=== PATIENT | female | born 1980 | race African-American/Black ===

== ENCOUNTER 2018-02-25 07:36 | Emergency (ER) | payer OTHER ==
--- OUTSIDE RECORDS SUMMARY | 2018-02-25 07:38 | XMS REPORT ---
:1980 Author Organization eClinicalWorks Care Team Providers Name Role Phone Marly Lemus Provider Role Unavailable Allergies No Known Allergies Problems Problem Type Condition Code Onset Dates Condition Status Problem Bipolar affective disorder, F31.9 Active remission status unspecified Problem retirement current use of insulin Z79.4 Active Problem Type 2 diabetes mellitus with E11.65 Active hyperglycemia Problem Dietary counseling Z71.3 Active Problem Diabetes E11.9 Active Problem Obesity (BMI 30.0-34.9) E66.9 Active Problem Bipolar 1 disorder F31.9 Active Problem Depression with anxiety F41.8 Active Problem Anxiety F41.9 Active Problem Depression F32.9 Active Medications Medication Code Code Instructions Start End Status Dosage System Date Date Lantus [facility] 80512088332 100 UNIT/ML Active 10 Units Subcutaneous Once daily Sertraline HCl ND 71312998808 50 MG Orally Active 1 tablet Once a day [place] [facility] 63621612162 32G X 6 MM February 12, Active as directed subcutaneous 2017 Once daily Metformin HCl ND 52400076770 1000 MG Orally Active 1 tablet Once a day with a meal Saxenda ND 90303682901 18 MG/3ML February 13Jun 13, Active as directed Subcutaneous 2017 2017 Start at 0.6 mg in week #1, then increase by 0.6 mg each week to max of 3 mg daily Lantus ND 23991204651 100 UNIT/ML February 12, Active 10 units SoloStar Subcutaneous 2018 Once daily Results No Known Results Summary Purpose [employer]ClinicalWorks Submission
--- OUTSIDE RECORDS SUMMARY | 2018-02-25 07:38 | XMS REPORT ---
:1980 Author Organization eClinicalWorks Care Team Providers Name Role Phone Marly Lemus Provider Role Unavailable Allergies No Known Allergies Problems Problem Type Condition Code Onset Dates Condition Status Problem Bipolar affective disorder, F31.9 Active remission status unspecified Problem senior care current use of insulin Z79.4 Active Problem Type 2 diabetes mellitus with E11.65 Active hyperglycemia Problem Dietary counseling Z71.3 Active Problem Diabetes E11.9 Active Problem Obesity (BMI 30.0-34.9) E66.9 Active Problem Bipolar 1 disorder F31.9 Active Problem Depression with anxiety F41.8 Active Problem Anxiety F41.9 Active Problem Depression F32.9 Active Medications Medication Code Code Instructions Start End Date Status Dosage System Date Metformin HCl [facility] 86767308250 1000 MG Orally February 13, Active 1 tablet Twice daily 2018 with a meal Results No Known Results Summary Purpose [employer] Submission
--- OUTSIDE RECORDS SUMMARY | 2018-02-25 07:38 | XMS REPORT ---
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
--- OUTSIDE RECORDS SUMMARY | 2018-02-25 07:38 | XMS REPORT ---
:1980 Author Organization eClinicalWorks Care Team Providers Name Role Phone Marly Lemus Provider Role Unavailable Allergies, Adverse Reactions, Alerts Substance Reaction Event Type N.K.D.A. 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 Z79.4 Active Problem Type 2 diabetes mellitus with E11.65 Active hyperglycemia Problem Dietary counseling Z71.3 Active Problem Diabetes E11.9 Active Problem Obesity (BMI 30.0-34.9) E66.9 Active Problem Bipolar 1 disorder F31.9 Active Problem Depression with anxiety F41.8 Active Problem Anxiety F41.9 Active Problem Depression F32.9 Active Assessment Dietary counseling Z71.3 Active Assessment intermediate current use of insulin Z79.4 Active Assessment Type 2 diabetes mellitus with E11.65 Active hyperglycemia Assessment Obesity (BMI 30.0-34.9) E66.9 Active Medications Medication Code Code Instructions Start End Status Dosage System Date Date Lantus ND 75809317004 100 UNIT/ML February 12, Active 10 units SoloStar Subcutaneous 2017 Once daily Metformin HCl ND 90313194196 1000 MG Orally Active 1 tablet Once a day with a meal Pen [place] [facility] 11582260034 32G X 6 MM February 12, Active as directed subcutaneous 2017 Once daily Sertraline HCl ND 63135543345 50 MG Orally Active 1 tablet Once a day Lantus ND 44312310587 100 UNIT/ML Active 10 Units Subcutaneous Once daily Results No Known Results Summary Purpose eClinicalWorks Submission
--- OUTSIDE RECORDS SUMMARY | 2018-02-25 07:38 | XMS REPORT ---
:1980 Author Organization eClinicalWorks Care Team Providers Name Role Phone Marly Lemus Provider Role Unavailable Allergies, Adverse Reactions, Alerts Substance Reaction Event Type N.K.D.A. 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 Active Problem Bipolar affective disorder, F31.9 Active remission status unspecified Assessment Type 2 diabetes mellitus with E11.65 Active hyperglycemia Assessment Bipolar affective disorder, F31.9 Active remission status unspecified Assessment Depression with anxiety F41.8 Active Problem Anxiety F41.9 Active Problem Depression F32.9 Active Problem Diabetes E11.9 Active Problem [facility] current use of insulin Z79.4 Active Problem Type 2 diabetes mellitus with E11.65 Active hyperglycemia Problem Bipolar 1 disorder F31.9 Active Problem Depression with anxiety F41.8 Active Medications Medication Code Code Instructions Start End Status Dosage System Date Date Metformin HCl [facility] 23677881031 1000 MG Orally Active 1 tablet Once a day with a meal Sertraline HCl [facility] 39012805789 50 MG Orally Active 1 tablet Once a day Lantus [facility] 90932711697 100 UNIT/ML Active not Subcutaneous defined Results No Known Results Summary Purpose [employer] Submission
--- OUTSIDE RECORDS SUMMARY | 2018-02-25 07:38 | XMS REPORT ---
:1980 Author Organization eClinicalWorks Care Team Providers Name Role Phone Marly Lemus Provider Role Unavailable Allergies No Known Allergies Problems Problem Type Condition Code Onset Dates Condition Status Problem Bipolar affective disorder, F31.9 Active remission status unspecified Problem Anxiety F41.9 Active Problem Depression F32.9 Active Problem Diabetes E11.9 Active Problem nursing home current use of insulin Z79.4 Active Problem Type 2 diabetes mellitus with E11.65 Active hyperglycemia Problem Bipolar 1 disorder F31.9 Active Problem Depression with anxiety F41.8 Active Medications No Known Medications Results No Known Results Summary Purpose eClinicalWorks Submission
--- NOTE | 2018-02-25 08:13 | EDPHYS ---
Physician Documentation [facility] Name: Eduin Montgomery Age: 37 yrs Sex: Female : 1980 Arrival Date: 02/25/2018 Time: 07:38 Bed 8 Private MD: Marly Lemus ED Physician Anuj Velásquez HPI: 02/25 08:00 This 37 yrs old Black Female presents to ER via Ambulatory with complaints of Anxiety. gs 08:00 The patient presents to the emergency department with anxiety, over unknown gs circumstances. Onset: The symptoms/episode began/occurred acutely, just prior to arrival. Past psychiatric history: Prior diagnosis: bipolar disorder, depression. Associated signs and symptoms: Pertinent negatives: chest pain, shortness of breath. Severity of symptoms: At their worst the symptoms were moderate in the emergency department the symptoms are unchanged. The patient has experienced similar episodes in the past, several times. out of zoloft for 1 month, see therapist. 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 - Social history:: Smoking status: Patient uses tobacco products, smokes one-half pack cigarettes per day. - Ebola Screening: : No symptoms or risks identified at this time. ROS: 08:00 All other systems are negative. gs 08:14 Psych: Negative for suicide gesture, suicidal ideation. gs Exam: 08:08 Head/Face: Normocephalic, atraumatic. Eyes: Pupils equal round and reactive to light, gs extra-ocular motions intact. Lids and lashes normal. Conjunctiva and sclera are non-icteric and not injected. Cornea within normal limits. Periorbital areas with no swelling, redness, or edema. ENT: Nares patent. No nasal discharge, no septal abnormalities noted. Tympanic membranes are normal and external auditory canals are clear. Oropharynx with no redness, swelling, or masses, exudates, or evidence of obstruction, uvula midline. Mucous membranes moist. Neck: Trachea midline, no thyromegaly or masses palpated, and no cervical lymphadenopathy. Supple, full range of motion without nuchal rigidity, or vertebral point tenderness. No Meningismus. Chest/axilla: Normal chest wall appearance and motion. Nontender with no deformity. No lesions are appreciated. Cardiovascular: Regular rate and rhythm with a normal S1 and S2. No gallops, murmurs, or rubs. Normal PMI, no JVD. No pulse deficits. Abdomen/GI: Soft, non-tender, with normal bowel sounds. No distension or tympany. No guarding or rebound. No evidence of tenderness throughout. Back: No spinal tenderness. No costovertebral tenderness. Full range of motion. Skin: Warm, dry with normal turgor. Normal color with no rashes, no lesions, and no evidence of cellulitis. MS/ Extremity: Pulses equal, no cyanosis. Neurovascular intact. Full, normal range of motion. Neuro: Awake and alert, GCS 15, oriented to person, place, time, and situation. Cranial nerves II-XII grossly intact. Motor strength 5/5 in all extremities. Sensory grossly intact. Cerebellar exam normal. Normal gait. 08:08 Constitutional: The patient appears alert, awake, anxious. 08:08 Respiratory: the patient does not display signs of respiratory distress, Respirations: tachypnea, that is mild, Breath sounds: are clear throughout, no bronchial sounds, no decreased breath sounds, no rales, rhonchi, no stridor, no wheezing. Vital Signs: 07:45 BP 106 / 58; Pulse 67; Resp 26 S; Temp 98.6(O); Pulse Ox 97% on R/A; Weight 99.79 kg jl7 (R); Height 5 ft. 8 in. (172.72 cm) (R); Pain 0/10; 08:18 BP 110 / 75; Pulse 71; Resp 24; Pulse Ox 99% ; jl7 07:45 Body Mass Index 33.45 (99.79 kg, 172.72 cm) 7 MDM: 07:56 Patient medically screened. 08:08 Differential diagnosis: depression, hyperventilation. Data reviewed: vital signs, gs nurses notes. Administered Medications: No medications were administered Disposition: 02/25/18 08:12 Discharged to Home. Impression: Hyperventilation. - Condition is Stable. - Discharge Instructions: Hyperventilation, Generalized Anxiety Disorder. - Prescriptions for Ativan 0.5 mg Oral Tablet - take 1 tablet by ORAL route every 8 hours As needed; 10 tablet. Zoloft 50 mg Oral Tablet - take 1 tablet by ORAL route once daily; 15 tablet. - Medication Reconciliation Form, Thank You Letter, Antibiotic Education, Prescription Opioid Use form. - Follow up: Private Physician; When: 2 - 3 days; Reason: Re-evaluation by your physician. Signatures: Shannon Vásquez RN RN jl7 Anuj Velásquez MD MD Corrections: (The following items were deleted from the chart) 08:29 08:12 02/25/2018 08:12 Discharged to Home. Impression: Hyperventilation. Condition is jl7 Stable. Forms are Medication Reconciliation Form, Thank You Letter, Antibiotic Education, Prescription Opioid Use. Follow up: Private Physician; When: 2 - 3 days; Reason: Re-evaluation by your physician. gs
--- NOTE | 2018-02-25 08:13 | ER ---
Nurse's Notes [facility] Name: Eduin Montgomery Age: 37 yrs Sex: Female : 1980 Arrival Date: 02/25/2018 Time: 07:38 Bed 8 Private MD: Marly Lemus Diagnosis: Hyperventilation Presentation: 02/25 07:45 Presenting complaint: Patient states: "I started feeling anxious this morning before jl7 work and by the time I got to work I couldn't get out of the car and I couldn't catch my breath.". Transition of care: patient was not received from another setting of care. Onset of symptoms was February 25, 2018. Risk Assessment: Do you want to hurt yourself or someone else? Patient reports no desire to harm self or others. Initial Sepsis Screen: Does the patient meet any 2 criteria? No. Patient's initial sepsis screen is negative. Does the patient have a suspected source of infection? No. Patient's initial sepsis screen is negative. Care prior to arrival: None. 07:45 Method Of Arrival: Ambulatory [facility] 07:45 Acuity: RUBY 4 jl7 Triage Assessment: 07:45 General: Appears in no apparent distress. uncomfortable, Behavior is cooperative, jl7 anxious. Pain: Denies pain. EENT: No signs and/or symptoms were reported regarding the EENT system. Neuro: Level of Consciousness is awake, alert, obeys commands, Oriented to person, place, time, situation. Cardiovascular: Patient's skin is warm and dry. Respiratory: Airway is patent Respiratory effort is even, unlabored, Respiratory pattern is regular, symmetrical. GI: No signs and/or symptoms were reported involving the gastrointestinal system. : No signs and/or symptoms were reported regarding the genitourinary system. Derm: Skin is dry, Skin is normal, Skin temperature is warm. Musculoskeletal: No signs and/or symptoms reported regarding the musculoskeletal system. 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 - Social history:: Smoking status: Patient uses tobacco products, smokes one-half pack cigarettes per day. - Ebola Screening: : No symptoms or risks identified at this time. Screenin:45 Abuse screen: Denies threats or abuse. Denies injuries from another. Nutritional jl7 screening: No deficits noted. Tuberculosis screening: No symptoms or risk factors identified. Fall Risk None identified. Assessment: 07:45 General: See triage assessment. jl7 08:18 Reassessment: Dr. Velásquez at bedside discussing plan of care. jl7 Vital Signs: 07:45 BP 106 / 58; Pulse 67; Resp 26 S; Temp 98.6(O); Pulse Ox 97% on R/A; Weight 99.79 kg jl7 (R); Height 5 ft. 8 in. (172.72 cm) (R); Pain 0/10; 08:18 BP 110 / 75; Pulse 71; Resp 24; Pulse Ox 99% ; jl7 07:45 Body Mass Index 33.45 (99.79 kg, 172.72 cm) jl7 ED Course: 07:38 Patient arrived in ED. rg4 07:38 Marly Lemus MD is Private Physician. rg4 07:45 Anuj Velásquez MD is Attending Physician. gs 07:45 Arm band placed on right wrist. jl7 07:45 Patient has correct armband on for positive identification. Bed in low position. Call jl light in reach. Side rails up X 1. Pulse ox on. NIBP on. 07:52 Shannon Vásquez, KORTNEY is Primary Nurse. jl7 07:56 Triage completed. jl7 08:28 No provider procedures requiring assistance completed. Patient did not have IV access jl7 during this emergency room visit. Administered Medications: No medications were administered Outcome: 08:12 Discharge ordered by . 08:28 Discharged to home ambulatory. jl7 08:28 Condition: stable 08:28 Discharge instructions given to patient, Instructed on discharge instructions, follow up and referral plans. medication usage, Demonstrated understanding of instructions, follow-up care, medications, Prescriptions given X 2. 08:29 Patient left the ED. jl7 Signatures: Alyssa Manrique4 Shannon Vásquez RN RN jl7 Anuj Velásquez MD MD
[2018-02-25 08:33] VITALS: TEMP 98.6
[2018-02-25 08:34] VITALS: BP 110/75; O2SAT 99
== END 2018-02-25 08:29 | disposition home or self-care (01) ==
LOC: ER 07:36
DX: R06.4 Hyperventilation (principal); F41.9 Anxiety disorder, unspecified; E11.9 Type 2 diabetes mellitus without complications; F17.210 Nicotine dependence, cigarettes, uncomplicated; Z79.4 Long term (current) use of insulin
CPT/HCPCS: 99283

== ENCOUNTER 2018-03-06 07:16 | Emergency (ER) | payer OTHER ==
--- OUTSIDE RECORDS SUMMARY | 2018-03-06 07:17 | XMS REPORT ---
:1980 Author Organization eClinicalWorks Care Team Providers Name Role Phone Marly Lemus Provider Role Unavailable Allergies, Adverse Reactions, Alerts Substance Reaction Event Type N.K.D.A. 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 Problem Bipolar affective disorder, F31.9 Active remission status unspecified Assessment Type 2 diabetes mellitus with E11.65 Active hyperglycemia Assessment Bipolar affective disorder, F31.9 Active remission status unspecified Assessment Depression with anxiety F41.8 Active Problem Anxiety F41.9 Active Problem Depression F32.9 Active Problem Diabetes E11.9 Active Problem [facility] current use of insulin Z79.4 Active Problem Type 2 diabetes mellitus with E11.65 Active hyperglycemia Problem Bipolar 1 disorder F31.9 Active Problem Depression with anxiety F41.8 Active Medications Medication Code Code Instructions Start End Status Dosage System Date Date Metformin HCl [facility] 74796008778 1000 MG Orally Active 1 tablet Once a day with a meal Sertraline HCl [facility] 21977758654 50 MG Orally Active 1 tablet Once a day Lantus [facility] 20479547001 100 UNIT/ML Active not Subcutaneous defined Results No Known Results Summary Purpose [employer] Submission
--- OUTSIDE RECORDS SUMMARY | 2018-03-06 07:17 | XMS REPORT ---
:1980 Author Organization eClinicalWorks Care Team Providers Name Role Phone Marly Lemus Provider Role Unavailable Allergies No Known Allergies Problems Problem Type Condition Code Onset Dates Condition Status Problem Bipolar affective disorder, F31.9 Active remission status unspecified Problem correction current use of insulin Z79.4 Active Problem [...] Date Status Dosage System Date Metformin HCl [facility] 89615448896 1000 MG Orally February 13, Active 1 tablet Twice daily 2018 with a meal Results No Known Results Summary Purpose [employer] Submission
--- OUTSIDE RECORDS SUMMARY | 2018-03-06 07:17 | XMS REPORT ---
:1980 Author Organization eClinicalWorks Care Team Providers Name Role Phone Marly Lemus Provider Role Unavailable Allergies, Adverse Reactions, Alerts Substance Reaction Event Type N.K.D.A. 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 Active Problem Type 2 diabetes mellitus with E11.65 Active hyperglycemia Problem Dietary counseling Z71.3 Active Problem Diabetes E11.9 Active Problem Obesity (BMI 30.0-34.9) E66.9 Active Problem Bipolar 1 disorder F31.9 Active Problem Depression with anxiety F41.8 Active Problem Anxiety F41.9 Active Problem Depression F32.9 Active Assessment Dietary counseling Z71.3 Active Assessment [facility] current use of insulin Z79.4 Active Assessment Type 2 diabetes mellitus with E11.65 Active hyperglycemia Assessment Obesity (BMI 30.0-34.9) E66.9 Active Medications Medication Code Code Instructions Start End Status Dosage System Date Date Lantus ND 39182096951 100 UNIT/ML February 12, Active 10 units SoloStar Subcutaneous 2017 Once daily Metformin HCl ND 89920904712 1000 MG Orally Active 1 tablet Once a day with a meal [place] [facility] 20011531411 32G X 6 MM February 12, Active as directed subcutaneous 2017 Once daily Sertraline HCl ND 75285628535 50 MG Orally Active 1 tablet Once a day Lantus ND 86351201652 100 UNIT/ML Active 10 Units Subcutaneous Once daily Results No Known Results Summary Purpose eClinicalWorks Submission
--- OUTSIDE RECORDS SUMMARY | 2018-03-06 07:17 | XMS REPORT ---
:1980 Author Organization eClinicalWorks Care Team Providers Name Role Phone Marly Lemus Provider Role Unavailable Allergies No Known Allergies Problems Problem Type Condition Code Onset Dates Condition Status Problem Bipolar affective disorder, F31.9 Active remission status unspecified Problem Anxiety F41.9 Active Problem Depression F32.9 Active Problem Diabetes E11.9 Active Problem care home current use of insulin Z79.4 Active Problem Type 2 diabetes mellitus with E11.65 Active hyperglycemia Problem Bipolar 1 disorder F31.9 Active Problem Depression with anxiety F41.8 Active Medications No Known Medications Results No Known Results Summary Purpose [employer]ClinicalWorks Submission
--- OUTSIDE RECORDS SUMMARY | 2018-03-06 07:17 | XMS REPORT ---
:1980 Author Organization eClinicalWorks Care Team Providers Name Role Phone Marly Lemus Provider Role Unavailable Allergies No Known Allergies Problems Problem Type Condition Code Onset Dates Condition Status Problem Bipolar affective disorder, F31.9 Active remission status unspecified Problem care home current use of insulin [...] End Status Dosage System Date Date Lantus [facility] 85700650382 100 UNIT/ML Active 10 Units Subcutaneous Once daily Sertraline HCl ND 09985486198 50 MG Orally Active 1 tablet Once a day [place] [facility] 29475449203 32G X 6 MM February 12, Active as directed subcutaneous 2017 Once daily Metformin HCl ND 93627208673 1000 MG Orally Active 1 tablet Once a day with a meal Saxenda ND 75084151542 18 MG/3ML February 13Jun 13, Active as directed Subcutaneous 2017 2017 Start at 0.6 mg in week #1, then increase by 0.6 mg each week to max of 3 mg daily Lantus ND 69409484156 100 UNIT/ML February 12, Active 10 units SoloStar Subcutaneous 2018 Once daily Results No Known Results Summary Purpose eClinicalWorks Submission
--- OUTSIDE RECORDS SUMMARY | 2018-03-06 07:18 | XMS REPORT ---
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
--- NOTE | 2018-03-06 08:28 | ER ---
Nurse's Notes [facility] Name: Eduin Montgomery Age: 37 yrs Sex: Female : 1980 Arrival Date: 03/06/2018 Time: 07:18 Bed 13 Private MD: Marly Lemus Diagnosis: Anxiety disorder, unspecified Presentation: 03/06 07:19 Presenting complaint: Patient states: i have anxiety problem and this time it started hj 20 mins ago at work; denies chest pain; reports dizziness and headache;. Transition of care: patient was not received from another setting of care. Onset of symptoms was March 06, 2018. Risk Assessment: Do you want to hurt yourself or someone else? Patient reports no desire to harm self or others. Initial Sepsis Screen: Does the patient meet any 2 criteria? No. Patient's initial sepsis screen is negative. Does the patient have a suspected source of infection? No. Patient's initial sepsis screen is negative. Care prior to arrival: None. 07:19 Method Of Arrival: Ambulatory 07:19 Acuity: RUBY 4 hj Triage Assessment: 07:21 General: Appears in no apparent distress. uncomfortable, Behavior is cooperative, hj appropriate for age, anxious. Pain: Denies pain. 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 - Social history:: Smoking status: Patient/guardian denies using tobacco, Patient/guardian denies using alcohol. - Ebola Screening: : Patient negative for fever greater than or equal to 101.5 degrees Fahrenheit, and additional compatible Ebola Virus Disease symptoms Patient denies exposure to infectious person Patient denies travel to an Ebola-affected area in the 21 days before illness onset. Screenin:21 Abuse screen: Denies threats or abuse. Denies injuries from another. Nutritional hj screening: No deficits noted. Tuberculosis screening: No symptoms or risk factors identified. Fall Risk None identified. Assessment: 07:26 Reassessment: pt in restroom at this time. tw2 07:36 General: Appears well groomed, Behavior is anxious. Pain: Denies pain. Neuro: Level of tw2 Consciousness is awake, alert, obeys commands, Oriented to person, place, time, situation. Cardiovascular: Reports shortness of breath, Heart tones S1 S2 Capillary refill < 3 seconds Patient's skin is warm and dry. Respiratory: Airway is patent Respiratory effort is even, unlabored, Respiratory pattern is regular, symmetrical, tachypnea Breath sounds are clear bilaterally. GI: No signs and/or symptoms were reported involving the gastrointestinal system. Abdomen is round non-distended, Bowel sounds present X 4 quads. : No signs and/or symptoms were reported regarding the genitourinary system. EENT: No signs and/or symptoms were reported regarding the EENT system. Derm: Skin is intact, is healthy with good turgor, Skin temperature is warm. Musculoskeletal: Range of motion: intact in all extremities. 08:23 Reassessment: No changes from previously documented assessment. Patient and/or family tw2 updated on plan of care and expected duration. Pain level reassessed. Patient is alert, oriented x 3, equal unlabored respirations, skin warm/dry/pink. pt refused breakfast tray at this time and refused blanket, states "dont feel much better". Vital Signs: 07:22 BP 100 / 89; Pulse 83; Resp 18; Temp 97.9; Pulse Ox 100% on R/A; Weight 99.79 kg; hj Height 5 ft. 9 in. (175.26 cm); Pain 0/10; 08:23 BP 103 / 65; Pulse 53; Resp 20; Pulse Ox 100% on R/A; tw2 07:22 Body Mass Index 32.49 (99.79 kg, 175.26 cm) ED Course: 07:18 Patient arrived in ED. rg4 07:19 Marly Lemus MD is Private Physician. rg4 07:20 Triage completed. 07:21 Arm band placed on right wrist. hj 07:22 Patient has correct armband on for positive identification. Bed in low position. Call light in reach. Side rails up X 1. 07:24 Kristen Cortez, RN is Primary Nurse. tw2 07:29 [facility]C [facility] snw 07:29 Anuj Velásquez MD is Attending Physician. snw 08:26 Marly Lemus MD is Referral Physician. snw 08:43 No provider procedures requiring assistance completed. Patient did not have IV access tw2 during this emergency room visit. Administered Medications: No medications were administered Outcome: 08:28 Discharge ordered by . snw 08:43 Discharged to home ambulatory. tw2 08:43 Condition: stable 08:43 Discharge instructions given to patient, Instructed on discharge instructions, follow up and referral plans. Demonstrated understanding of instructions, follow-up care. 08:44 Patient left the ED. tw2 Signatures: Brittany Edwards FNP-C INSPECTOR FIREARMS-Csnw Jabari Cunha RN RN Kristen Cortez RN RN tw2 Alyssa Manrique rg4 Corrections: (The following items were deleted from the chart) 07:25 07:19 Presenting complaint: Patient states: i have anxiety problem and this time it hj started 20 mins ago at work; hj 07:25 07:22 Pulse 83bpm; Resp 18bpm; Pulse Ox 100% RA; Temp 97.9F; 99.79 kg; Height 5 ft. 9 hj in.; BMI: 32.4; Pain 0/10; hj 07:25 07:22 Pulse 83bpm; Resp 18bpm; Pulse Ox 100% RA; Temp 97.9F; 99.79 kg; Height 5 ft. 9 hj in.; BMI: 32.4; Pain 0/10; hj
--- NOTE | 2018-03-06 08:29 | EDPHYS ---
Physician Documentation [facility] Name: Eduin Montgomery Age: 37 yrs Sex: Female : 1980 Arrival Date: 03/06/2018 Time: 07:18 Bed 13 Private MD: Marly Lemus ED Physician Anuj Velásquez HPI: 03/06 08:10 This 37 yrs old Black Female presents to ER via Ambulatory with complaints of Anxiety. snw 08:10 The patient presents to the emergency department with anxiety, over unknown snw circumstances. Past psychiatric history: Prior diagnosis: anxiety, bipolar, Psychiatric medications include: Zoloft, Primary psychiatric physician: the patient's psychiatric physician is not known. Associated signs and symptoms: Pertinent positives; shortness of breath, hyperventilation. Severity of symptoms: At their worst the symptoms were moderate. The patient has experienced similar episodes in the past, multiple times. The patient has not recently seen a physician. 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 - Social history:: Smoking status: Patient/guardian denies using tobacco, Patient/guardian denies using alcohol. - Ebola Screening: : Patient negative for fever greater than or equal to 101.5 degrees Fahrenheit, and additional compatible Ebola Virus Disease symptoms Patient denies exposure to infectious person Patient denies travel to an Ebola-affected area in the 21 days before illness onset. ROS: 08:02 Constitutional: Negative for fever, chills, and weight loss, Eyes: Negative for injury, snw pain, redness, and discharge, ENT: Negative for injury, pain, and discharge, Neck: Negative for injury, pain, and swelling, Cardiovascular: Negative for chest pain, palpitations, and edema, Respiratory: Negative for shortness of breath, cough, wheezing, and pleuritic chest pain, Abdomen/GI: Negative for abdominal pain, nausea, vomiting, diarrhea, and constipation, Back: Negative for injury and pain, : Negative for injury, bleeding, discharge, and swelling, MS/Extremity: Negative for injury and deformity, Skin: Negative for injury, rash, and discoloration, Neuro: Negative for headache, weakness, numbness, tingling, and seizure. 08:02 Psych: Positive for anxiety, panic. Exam: 07:33 Head/Face: Normocephalic, atraumatic. Eyes: Pupils equal round and reactive to light, snw extra-ocular motions intact. Lids and lashes normal. Conjunctiva and sclera are non-icteric and not injected. Cornea within normal limits. Periorbital areas with no swelling, redness, or edema. ENT: Nares patent. No nasal discharge, no septal abnormalities noted. Tympanic membranes are normal and external auditory canals are clear. Oropharynx with no redness, swelling, or masses, exudates, or evidence of obstruction, uvula midline. Mucous membranes moist. Neck: Trachea midline, no thyromegaly or masses palpated, and no cervical lymphadenopathy. Supple, full range of motion without nuchal rigidity, or vertebral point tenderness. No Meningismus. Chest/axilla: Normal chest wall appearance and motion. Nontender with no deformity. No lesions are appreciated. Cardiovascular: Regular rate and rhythm with a normal S1 and S2. No gallops, murmurs, or rubs. Normal PMI, no JVD. No pulse deficits. Abdomen/GI: Soft, non-tender, with normal bowel sounds. No distension or tympany. No guarding or rebound. No evidence of tenderness throughout. Back: No spinal tenderness. No costovertebral tenderness. Full range of motion. Skin: Warm, dry with normal turgor. Normal color with no rashes, no lesions, and no evidence of cellulitis. MS/ Extremity: Pulses equal, no cyanosis. Neurovascular intact. Full, normal range of motion. Neuro: Awake and alert, GCS 15, oriented to person, place, time, and situation. Cranial nerves II-XII grossly intact. Motor strength 5/5 in all extremities. Sensory grossly intact. Cerebellar exam normal. Normal gait. Psych: Awake, alert, with orientation to person, place and time. Behavior, mood, and affect are within normal limits. 07:33 Constitutional: The patient appears alert, awake, anxious. 07:33 Respiratory: the patient does not display signs of respiratory distress, Respirations: shallow respirations, tachypnea, Breath sounds: are clear throughout, hyperventilation. Vital Signs: 07:22 BP 100 / 89; Pulse 83; Resp 18; Temp 97.9; Pulse Ox 100% on R/A; Weight 99.79 kg; hj Height 5 ft. 9 in. (175.26 cm); Pain 0/10; 08:23 BP 103 / 65; Pulse 53; Resp 20; Pulse Ox 100% on R/A; tw2 07:22 Body Mass Index 32.49 (99.79 kg, 175.26 cm) hj MDM: 07:29 Patient medically screened. snw 07:33 Data reviewed: vital signs, nurses notes. Data interpreted: Pulse oximetry: on room air snw is 100 %. Interpretation: normal. Counseling: I had a detailed discussion with the patient and/or guardian regarding: the historical points, exam findings, and any diagnostic results supporting the discharge/admit diagnosis, the need for outpatient follow up, for definitive care. Special discussion: Based on the history and exam findings, there is no indication for further emergent testing or inpatient evaluation. I discussed with the patient/guardian the need to see the psychiatrist for further evaluation of the symptoms. 08:17 Response to treatment: the patient's symptoms have resolved after treatment, pt snw sleeping in no distress. 03/06 07:55 Order name: Urine Dipstick--Ancillary (enter results) bd 03/06 07:55 Order name: Urine --Ancillary (enter results) bd 03/06 07:37 Order name: Misc. Order: lights low, noise reduced, pt attempting to redirect her snw panic, call light at bedside; Complete Time: 07:37 03/06 07:57 Order name: Diet Regular; Complete Time: 07:58 bd Administered Medications: No medications were administered Disposition: 03/06/18 08:28 Discharged to Home. Impression: Anxiety disorder, unspecified. - Condition is Stable. - Discharge Instructions: Panic Attacks, Generalized Anxiety Disorder. - Medication Reconciliation Form, Thank You Letter, Antibiotic Education, Prescription Opioid Use, Work release form form. - Follow up: Marly Lemus MD; When: 2 - 3 days; Reason: Recheck today's complaints, Continuance of care, Re-evaluation by your physician. Follow up: Emergency Department; When: As needed; Reason: Worsening of condition. Addendum: 03/08/2018 06:17 Co-signature as Attending Physician, Anuj Velásquez MD. g s Signatures: Dispatcher [employer] EDMS Brittany Edwards, REAL ESTATE FIRM MANAGER-C REAL ESTATE FIRM MANAGER-Csnw Jabari Cunha, RN RN Kristen Cortez RN RN tw2 Anuj Velásquez MD MD Corrections: (The following items were deleted from the chart) 03/06 08:44 08:28 03/06/2018 08:28 Discharged to Home. Impression: Anxiety disorder, unspecified. tw2 Condition is Stable. Forms are Work release form, Medication Reconciliation Form, Thank You Letter, Antibiotic Education, Prescription Opioid Use. Follow up: Marly Lemus; When: 2 - 3 days; Reason: Recheck today's complaints, Continuance of care, Re-evaluation by your physician. Follow up: Emergency Department; When: As needed; Reason: Worsening of condition. snw
[2018-03-06 08:51] VITALS: TEMP 97.9; O2SAT 100
[2018-03-06 08:53] VITALS: BP 103/65
[2018-03-06 10:39] LABS: Urine Blood NEGATIVE (NEG); Urine Glucose NEGATIVE (NEG); Urine Protein 1+ (NEG)
== END 2018-03-06 08:44 | disposition home or self-care (01) ==
LOC: ER 07:16
DX: F41.9 Anxiety disorder, unspecified (principal); F32.9 Major depressive disorder, single episode, unspecified; F31.9 Bipolar disorder, unspecified; E11.9 Type 2 diabetes mellitus without complications; Z79.4 Long term (current) use of insulin
CPT/HCPCS: 81003; 81025; 99281

== ENCOUNTER 2019-08-18 06:06 | Emergency (ER) | payer OTHER ==
--- OUTSIDE RECORDS SUMMARY | 2019-08-18 06:08 | XMS REPORT ---
:1980 [facility] Address [address] [place] [address] Dr. Herron [address] [place] [id number] Care Team Providers Name Role Phone Unavailable Unavailable Unavailable Problems This patient has no known problems. Allergies, Adverse Reactions, Alerts This patient has no known allergies or adverse reactions. Medications This patient has no known medications.
--- OUTSIDE RECORDS SUMMARY | 2019-08-18 06:08 | XMS REPORT ---
:1980 Author Organization [employer] Care Team Providers Name Role Phone Marly Lemus Provider Role Unavailable Allergies No Known Allergies Problems Problem Type Condition Code Onset Dates Condition Status Problem Dietary counseling Z71.3 Active Problem Uncontrolled type 2 diabetes E11.65 Active mellitus with hyperglycemia Problem Obesity (BMI 30.0-34.9) E66.9 Active Problem History of depression Z86.59 Active Problem Influenza vaccination administered Z23 Active at current visit Problem Weight loss R63.4 Active Problem Unspecified lump in the right N63.10 Active breast, unspecified quadrant Problem Unspecified lump in the left breast, N63.20 Active unspecified quadrant Problem Dysphagia, unspecified type R13.10 Active Problem History of anxiety Z86.59 Active Problem Type 2 diabetes mellitus with E11.65 Active hyperglycemia Problem halfway current use of insulin Z79.4 Active Problem Bipolar affective disorder, F31.9 Active remission status unspecified Problem Depression F32.9 Active Problem Depression with anxiety F41.8 Active Problem Anxiety F41.9 Active Problem Bipolar 1 disorder F31.9 Active Problem Diabetes E11.9 Active Medications No Known Medications Results No Known Results Summary Purpose [employer] Submission
--- OUTSIDE RECORDS SUMMARY | 2019-08-18 06:08 | XMS REPORT ---
:1980 Author Organization [employer] Care Team Providers Name Role Phone Marly Lemus Provider Role Unavailable Allergies, Adverse Reactions, Alerts Substance Reaction Event Type N.K.D.A. Info Not Available Non Drug Allergy Problems Problem Type Condition Code Onset Dates Condition Status Assessment History of depression Z86.59 Active Problem Anxiety F41.9 Active Assessment Unspecified lump in the right N63.10 Active breast, unspecified quadrant Problem Diabetes E11.9 Active Assessment Unspecified lump in the left breast, N63.20 Active unspecified quadrant Problem Dietary counseling Z71.3 Active Problem Uncontrolled type 2 diabetes E11.65 Active mellitus with hyperglycemia Problem Obesity (BMI 30.0-34.9) E66.9 Active Problem History of depression Z86.59 Active Problem Influenza vaccination administered Z23 Active at current visit Assessment Influenza vaccination administered Z23 Active at current visit Assessment Dysphagia, unspecified type R13.10 Active Problem Weight loss R63.4 Active Assessment Weight loss R63.4 Active Problem Unspecified lump in the right N63.10 Active breast, unspecified quadrant Problem Unspecified lump in the left breast, N63.20 Active unspecified quadrant Problem Dysphagia, unspecified type R13.10 Active Problem History of anxiety Z86.59 Active Problem Type 2 diabetes mellitus with E11.65 Active hyperglycemia Problem half-way current use of insulin Z79.4 Active Assessment Uncontrolled type 2 diabetes E11.65 Active mellitus with hyperglycemia Problem Bipolar affective disorder, F31.9 Active remission status unspecified Problem Depression F32.9 Active Problem Depression with anxiety F41.8 Active Problem Bipolar 1 disorder F31.9 Active Medications Medication Code Code Instructions Start End Status Dosage System Date Date Pen [place] [facility] [id number] 32G X 6 MM February 12, Active as directed subcutaneous 2017 Once daily Pen [place] [id number] 32G X 5 MM Jun 05, Active as directed subcutaneous as 2018 directed for use with Lantus Solostar Pen Sertraline HCl [facility] [id number] 50 MG Orally Active 1 tablet Once a day (to be taken with Zoloft 25 mg) Lantus [facility] [id number] 100 UNIT/ML February 12, Active 10 units SoloStar Subcutaneous 2017 Once daily Metformin HCl [facility] [id number] 1000 MG Orally February 13, Active 1 tablet Twice daily 2017 with a meal Sertraline HCl [facility] 85092027099 25 MG Orally Active 1 tablet Once daily (to be taken with Zoloft 50 mg) Lantus [facility] [id number] 100 UNIT/ML Active 10 Units Subcutaneous Once daily Results Name Result Date Reference Range Unit Abnormality Flag HEMOGLOBIN A1C ----A1C 13.9% [id number] Immunizations Vaccine Administration Date Flucelvax - single dose syringe Jun 05, 2019 Summary Purpose [employer] Submission
[2019-08-18 06:55] LABS: Absolute Lymphocytes (CBC) 2.1 K/uL (0.7-4.9); Basophils % 0.6 % (0-1.3); Hematocrit 35.7 % (36.0-45.0); Lymphocytes % 31.5 % (15.3-44.8); MPV 10.3 fL (7.6-11.3); RBC Red Blood Cell Count 4.17 M/uL (3.86-4.86)
[2019-08-18 06:59] LABS: Protime INR 0.97
[2019-08-18 07:07] LABS: BUN Blood Urea Nitrogen 12 mg/dL (7-18); Bicarbonate 28 mmol/L (21-32); Glucose Level 243 mg/dL (74-106); Potassium 3.3 mmol/L (3.5-5.1); Sodium Level 142 mmol/L (136-145)
[2019-08-18 07:08] LABS: Barbiturates NEGATIVE (NEGATIVE); Benzodiazepines NEGATIVE (NEGATIVE); Cocaine NEGATIVE (NEGATIVE); METHAMPHETAM NEGATIVE (NEGATIVE); Methadone NEGATIVE (NEGATIVE); Opiates NEGATIVE (NEGATIVE); Phencyclidine NEGATIVE (NEGATIVE); THC Cannibis NEGATIVE (NEGATIVE)
--- NOTE | 2019-08-18 07:15 | RAD REPORT ---
EXAM DESCRIPTION: CT - Head Brain Wo Cont - 08/18/2019 6:56 am CLINICAL HISTORY: Right hand numbness COMPARISON: 2012 TECHNIQUE: Computed axial tomography of the head was obtained. IV contrast was not requested. All CT scans are performed using dose optimization technique as appropriate and may include automated exposure control or mA/KV adjustment according to patient size. FINDINGS: An intracranial bleed is not seen . The ventricles are normal in caliber. No extra-axial fluid collection is noted. Empty sella turcica. Minimal cerebellar tonsillar ectopia Fluid within the sinuses/ mastoids is not seen. IMPRESSION: No acute intracranial abnormality is seen. If patient's symptoms persist MRI of the bra in would be recommended.
[2019-08-18 07:34] LABS: Urine Blood NEGATIVE (NEG); Urine Glucose 2+ (NEG); Urine Protein 1+ (NEG)
--- NOTE | 2019-08-18 08:06 | ER ---
Nurse's Notes [facility] Name: Eduin Montgomery Age: 38 yrs Sex: Female : 1980 Arrival Date: 08/18/2019 Time: 06:07 Bed 5 Private MD: Diagnosis: Carpal tunnel syndrome Presentation: 08/18 06:20 Presenting complaint: Patient states: I woke up yesterday around 0800H starts to feel rr5 numb on my right arm. the numbness on my arm went away but the feeling of my numbness/tingling sensation on my right hand still. 06:20 Transition of care: patient was not received from another setting of care. Onset of rr5 symptoms was August 17, 2019 at 08:00. Risk Assessment: Do you want to hurt yourself or someone else? Patient reports no desire to harm self or others. Initial Sepsis Screen: Does the patient meet any 2 criteria? No. Patient's initial sepsis screen is negative. Does the patient have a suspected source of infection? No. Patient's initial sepsis screen is negative. Care prior to arrival: None. 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 - Social history:: Smoking status: Patient uses tobacco products, 3 sticks per day. - Ebola Screening: : Patient negative for fever greater than or equal to 101.5 degrees Fahrenheit, and additional compatible Ebola Virus Disease symptoms Patient denies exposure to infectious person Patient denies travel to an Ebola-affected area in the 21 days before illness onset. Screenin:27 Abuse screen: Denies threats or abuse. Denies injuries from another. Nutritional rr5 screening: No deficits noted. Tuberculosis screening: No symptoms or risk factors identified. Fall Risk IV access (20 points). Total Zhong Fall Scale indicates No Risk (0-24 pts). 06:27 VAN Screening: Arm Drift: Patient shows no arm weakness. Patient is VAN negative. rr5 07:04 Patient has been NPO before screening. The patient is alert, able to follow commands. rr5 The patient does not exhibit slurred or garbled speech The patient is not exhibiting difficulty speaking. The patient does not exhibit difficulty understanding words. The patient is able to swallow own secretions with no drooling or need for suction. Patient tolerated one teaspoon of water. No drooling, immediate coughing, gurgling, or clearing of the throat was noted. The patient tolerated 90mL of water. No drooling, immediate coughing, gurgling, or clearing of the throat was noted. The patient passed the bedside swallow screening. Oral medications may be given as ordered. Contact Physician for further diet orders. Provider notified of bedside swallow screening results: Carlos Ruffin FOOD OR BAGGAGE HANDLING RAMPMAN. Assessment: 06:26 General: Appears in no apparent distress. comfortable, Behavior is calm, cooperative, rr5 appropriate for age. 06:26 Pain: Denies pain. Neuro: Level of Consciousness is awake, alert, obeys commands, rr5 Oriented to person, place, time, situation, Teacher are weak on right Moves all extremities. Full function Gait is steady, Speech is normal, Facial symmetry appears normal, Reports numbness in right hand. Cardiovascular: Capillary refill < 3 seconds Patient's skin is warm and dry. Respiratory: Airway is patent. GI: No signs and/or symptoms were reported involving the gastrointestinal system. : No signs and/or symptoms were reported regarding the genitourinary system. EENT: No signs and/or symptoms were reported regarding the EENT system. Derm: Skin is intact, is healthy with good turgor, Skin temperature is warm. Musculoskeletal: Circulation, motion, and sensation intact. Capillary refill < 3 seconds. 07:00 General: Appears in no apparent distress. comfortable, Behavior is calm, cooperative. rb1 Pain: Denies pain. Neuro: Level of Consciousness is awake, alert, obeys commands, Oriented to person, place, time, situation, Teacher are weak on right Moves all extremities. Full function Speech is normal, Facial symmetry appears normal, Reports numbness in right hand Denies blurred vision dizziness. Cardiovascular: Capillary refill < 3 seconds is brisk in bilateral fingers Pulses are palpable in right radial artery. Respiratory: Airway is patent Respiratory effort is even, unlabored, Respiratory pattern is regular, symmetrical. GI: No signs and/or symptoms were reported involving the gastrointestinal system. : No signs and/or symptoms were reported regarding the genitourinary system. Derm: Skin is dry, Skin is normal, Skin temperature is warm. Musculoskeletal: Range of motion: intact in all extremities. 08:00 Reassessment: Patient appears in no apparent distress at this time. Patient and/or rb1 family updated on plan of care and expected duration. Pain level reassessed. Patient is alert, oriented x 3, equal unlabored respirations, skin warm/dry/pink. Patient denies pain at this time. Vital Signs: 06:25 BP 102 / 72; Pulse 92; Resp 17; Temp 98.4; Pulse Ox 100% ; Weight 83.91 kg; Height 5 rr5 ft. 9 in. (175.26 cm); Pain 0/10; 07:44 BP 96 / 58; Pulse 64; Resp 17; Pulse Ox 100% on R/A; tw2 06:25 Body Mass Index 27.32 (83.91 kg, 175.26 cm) rr5 Edinburgh Coma Score: 06:25 Eye Response: spontaneous(4). Verbal Response: oriented(5). Motor Response: obeys rr5 commands(6). Total: 15. ED Course: 06:07 Patient arrived in ED. ds1 06:08 Carmelo Faust RN is Primary Nurse. rr5 06:13 Carlos Ruffin NP is PHCP. pm1 06:13 Mohinder Cortez MD is Attending Physician. pm1 06:24 Triage completed. rr5 06:27 Arm band placed on. rr5 06:35 EKG done, by ED staff, reviewed by Carlos Ruffin NP. rr5 06:40 Inserted saline lock: 20 gauge in right antecubital area, using aseptic technique. rr5 Blood collected. 06:45 Patient has correct armband on for positive identification. Placed in gown. Bed in low rr5 position. Call light in reach. security monitor on. Pulse ox on. NIBP on. 06:56 CT Head Brain wo Cont In Process Unspecified. EDMS 07:02 Chest Single View XRAY In Process Unspecified. EDMS 08:06 Primary Nurse role handed off by Carmelo Faust RN rb1 08:06 Olena Castro, RN is Primary Nurse. rb1 08:21 No provider procedures requiring assistance completed. IV discontinued, intact, rb1 bleeding controlled, No redness/swelling at site. Pressure dressing applied. Administered Medications: No medications were administered Outcome: 08:05 Discharge ordered by MD. pm1 08:21 Patient left the ED. rb1 08:21 Discharged to home ambulatory. rb1 08:21 Condition: stable 08:21 Discharge instructions given to patient, Instructed on discharge instructions, follow up and referral plans. Demonstrated understanding of instructions, follow-up care, splint care, Prescriptions given X none Signatures: Dispatcher [employer] [facility] Stacy Moody ds1 Olena Castro, RN RN rb1 Carlos Rfufin NP FOOD OR BAGGAGE HANDLING RAMPMAN pm1 Kristen Cortez RN RN tw2 Carmelo Faust, RN RN rr5 Corrections: (The following items were deleted from the chart) 06:55 06:45 Patient has been NPO before screening. The patient is alert, able to follow rr5 commands. The patient does not exhibit slurred or garbled speech The patient is not exhibiting difficulty speaking. The patient does not exhibit difficulty understanding words. The patient is able to swallow own secretions with no drooling or need for suction. Patient tolerated one teaspoon of water. No drooling, immediate coughing, gurgling, or clearing of the throat was noted. The patient tolerated 90mL of water. No drooling, immediate coughing, gurgling, or clearing of the throat was noted. The patient passed the bedside swallow screening. Oral medications may be given as ordered. Contact Physician for further diet orders. Provider notified of bedside swallow screening results: Carlos Ruffin FOOD OR BAGGAGE HANDLING RAMPMAN rr5
--- NOTE | 2019-08-18 08:07 | EDPHYS ---
Physician Documentation [facility] Name: Eduin Montgomery Age: 38 yrs Sex: Female : 1980 Arrival Date: 08/18/2019 Time: 06:07 Bed 5 Private MD: ED Physician Mohinder Cortez HPI: 08/18 07:05 This 38 yrs old Black Female presents to ER via Ambulatory with complaints of Numbness pm1 Of Hand - R. 07:05 The patient or guardian reports numbness. The complaints affect the right hand. pm1 Context: The problem was sustained at home, resulted from an unknown cause. Onset: The symptoms/episode began/occurred yesterday, at 08:00. Modifying factors: The symptoms are alleviated by nothing, the symptoms are aggravated by nothing. Associated signs and symptoms: Pertinent negatives: cyanosis distally, decreased sensation distally, fever, nausea, vomiting, headache, weakness. Severity of symptoms: in the emergency department the symptoms have improved. The patient has not experienced similar symptoms in the past. The patient has not recently seen a physician. Patient with right hand numbness that radiated up her right forearm yesterday morning when she woke up. Right forearm numbness has resolved, but right hand numbness has continued. No weakness. No other symptoms. No pain. 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 - Social history:: Smoking status: Patient uses tobacco products, 3 sticks per day. - Ebola Screening: : Patient negative for fever greater than or equal to 101.5 degrees Fahrenheit, and additional compatible Ebola Virus Disease symptoms Patient denies exposure to infectious person Patient denies travel to an Ebola-affected area in the 21 days before illness onset. ROS: 07:05 Constitutional: Negative for fever, chills, and weight loss, Neck: Negative for injury, pm1 pain, and swelling, Cardiovascular: Negative for chest pain, palpitations, and edema, Respiratory: Negative for shortness of breath, cough, wheezing, and pleuritic chest pain, Abdomen/GI: Negative for abdominal pain, nausea, vomiting, diarrhea, and constipation, Back: Negative for injury and pain, MS/Extremity: Negative for injury and deformity, Skin: Negative for injury, rash, and discoloration. 07:05 Neuro: Positive for numbness, of the right hand. Exam: 07:05 Constitutional: This is a well developed, well nourished patient who is awake, alert, pm1 and in no acute distress. Head/Face: Normocephalic, atraumatic. Neck: Trachea midline, no thyromegaly or masses palpated, and no cervical lymphadenopathy. Supple, full range of motion without nuchal rigidity, or vertebral point tenderness. No Meningismus. Chest/axilla: Normal chest wall appearance and motion. Nontender with no deformity. No lesions are appreciated. Cardiovascular: Regular rate and rhythm with a normal S1 and S2. No gallops, murmurs, or rubs. No pulse deficits. Respiratory: Lungs have equal breath sounds bilaterally, clear to auscultation and percussion. No rales, rhonchi or wheezes noted. No increased work of breathing, no retractions or nasal flaring. Abdomen/GI: Soft, non-tender, with normal bowel sounds. No distension or tympany. No guarding or rebound. No evidence of tenderness throughout. Back: No spinal tenderness. No costovertebral tenderness. Full range of motion. Skin: Warm, dry with normal turgor. Normal color with no rashes, no lesions, and no evidence of cellulitis. MS/ Extremity: Pulses equal, no cyanosis. Neurovascular intact. Full, normal range of motion. 07:05 Neuro: Orientation: is normal, Mentation: is normal, Cranial nerves: grossly normal, Motor: is normal, moves all fours, Sensation: is normal, no obvious gross deficits, Gait: is steady, at a normal pace, without difficulty. Vital Signs: 06:25 BP 102 / 72; Pulse 92; Resp 17; Temp 98.4; Pulse Ox 100% ; Weight 83.91 kg; Height 5 rr5 ft. 9 in. (175.26 cm); Pain 0/10; 07:44 BP 96 / 58; Pulse 64; Resp 17; Pulse Ox 100% on R/A; tw2 06:25 Body Mass Index 27.32 (83.91 kg, 175.26 cm) rr5 Otis Coma Score: 06:25 Eye Response: spontaneous(4). Verbal Response: oriented(5). Motor Response: obeys rr5 commands(6). Total: 15. MDM: 06:14 Patient medically screened. pm1 07:39 ED course: CT brain negative. Patient reports numbness to right hand improved with pm1 moving and supporting right hand at a 45 degree angle. Numbness and tingling reproduced and worsened with Phalen test to right hand. Impression is carpel tunnel syndrome. 08:04 Data reviewed: vital signs. Data interpreted: Pulse oximetry: on room air is 100 %. pm1 Interpretation: normal. Counseling: I had a detailed discussion with the patient and/or guardian regarding: the historical points, exam findings, and any diagnostic results supporting the discharge/admit diagnosis, lab results, radiology results, the need for outpatient follow up, to return to the emergency department if symptoms worsen or persist or if there are any questions or concerns that arise at home. 08/18 06:19 Order name: Basic Metabolic Panel; Complete Time: 07:31 pm1 08/18 06:19 Order name: CBC with Diff; Complete Time: 07:31 pm1 08/18 06:19 Order name: Protime (+inr); Complete Time: 07:31 pm1 08/18 06:19 Order name: Ptt, Activated; Complete Time: 07:31 pm1 08/18 06:19 Order name: UDS; Complete Time: 07:31 pm1 08/18 06:53 Order name: Glucose, Ancillary Testing; Complete Time: 06:56 EDMS 08/18 06:19 Order name: CT Head Brain wo Cont; Complete Time: 07:31 pm1 08/18 06:19 Order name: EKG; Complete Time: 06:21 pm1 08/18 06:19 Order name: Accucheck; Complete Time: 06:44 pm1 08/18 06:19 Order name: Cardiac monitoring; Complete Time: 06:44 pm1 08/18 06:19 Order name: EKG - Nurse/Tech; Complete Time: 06:44 pm1 08/18 06:19 Order name: Chest Single View XRAY pm1 08/18 06:56 Order name: Urine Dipstick--Ancillary (enter results); Complete Time: 07:43 eb 08/18 06:56 Order name: Urine --Ancillary (enter results); Complete Time: 07:43 eb 08/18 06:19 Order name: IV Saline Lock; Complete Time: 06:44 pm1 08/18 06:19 Order name: Labs collected and sent; Complete Time: 06:44 pm1 08/18 06:19 Order name: NPO; Complete Time: 06:44 pm1 08/18 06:19 Order name: O2 Per Protocol; Complete Time: 06:44 pm1 08/18 06:19 Order name: O2 Sat Monitoring; Complete Time: 06:44 pm1 08/18 06:19 Order name: Stroke Swallow Screen; Complete Time: 06:44 pm1 08/18 06:19 Order name: Urine Dipstick-Ancillary (obtain specimen); Complete Time: 06:55 pm1 08/18 06:19 Order name: Urine Test (obtain specimen); Complete Time: 06:55 pm1 08/18 08:04 Order name: Wrist Splint; Complete Time: 08:14 pm1 Administered Medications: No medications were administered Disposition: 08/18/19 08:05 Discharged to Home. Impression: Carpal tunnel syndrome. - Condition is Stable. - Discharge Instructions: Carpal Tunnel Syndrome, Wrist Splint. - Work release form, Medication Reconciliation Form, Thank You Letter, Antibiotic Education, Prescription Opioid Use form. - Follow up: Emergency Department; When: As needed; Reason: Worsening of condition. Follow up: Private Physician; When: 2 - 3 days; Reason: Recheck today's complaints, Continuance of care, Re-evaluation by your physician. - Problem is new. - Symptoms have improved. Addendum: 08/20/2019 09:59 Co-signature as Attending Physician, Mohinder Cortez MD. r n Signatures: Dispatcher [employer] [facility] Mohinder Cortez MD MD rn Barber, Rebecca, RN RN rb1 Carlos Ruffin, KVNG PROOF PLATE MAKER pm1 Carmelo Faust RN RN rr5 Corrections: (The following items were deleted from the chart) 08/18 08:21 08:05 08/18/2019 08:05 Discharged to Home. Impression: Carpal tunnel syndrome. rb1 Condition is Stable. Forms are Medication Reconciliation Form, Thank You Letter, Antibiotic Education, Prescription Opioid Use. Follow up: Emergency Department; When: As needed; Reason: Worsening of condition. Follow up: Private Physician; When: 2 - 3 days; Reason: Recheck today's complaints, Continuance of care, Re-evaluation by your physician. Problem is new. Symptoms have improved. pm1
[2019-08-18 08:30] VITALS: TEMP 98.4; O2SAT 100
[2019-08-18 08:31] VITALS: BP 96/58
--- NOTE | 2019-08-18 10:40 | RAD REPORT ---
EXAM DESCRIPTION: Willie Single View08/18/2019 7:02 am CLINICAL HISTORY: Numbness COMPARISON: 2016 FINDINGS: Lungs appear clear. Heart is normal size If the film is labeled correctly the patient has dextrocardia. However on the 2016 exam the heart was in a normal location. This indicates that the current chest film may be mislabeled
--- NOTE | 2019-08-18 11:42 | EKG ---
Test Date: 2019-08-18 Test Time: 06:36:16 Limited Radiology Technician: RR MEASUREMENT RESULTS: Intervals: Rate: 56 MI: 146 QRSD: 88 QT: 416 QTc: 401 [place]: P: 59 MI: 146 QRS: 84 T: 31 INTERPRETIVE STATEMENTS: Sinus bradycardia Otherwise normal ECG Compared to ECG 12/07/2015 20:25:13 Sinus rhythm no longer present Electronically Signed On 08-18-19 11:41:54 COMMAND AND CONTROL OFFICER by Meir Renner
== END 2019-08-18 08:21 | disposition home or self-care (01) ==
LOC: ER 06:06
DX: G56.01 Carpal tunnel syndrome, right upper limb (principal); E11.9 Type 2 diabetes mellitus without complications; F31.9 Bipolar disorder, unspecified; F41.9 Anxiety disorder, unspecified; Z72.0 Tobacco use; Z79.4 Long term (current) use of insulin
CPT/HCPCS: 36415; 70450; 71045; 80048; 80307; 81003; 81025; 82947; 85025; 85610; 85730; 93005; 99284

== ENCOUNTER 2019-10-08 11:27 | Emergency (ER) | payer OTHER ==
--- OUTSIDE RECORDS SUMMARY | 2019-10-08 11:29 | XMS REPORT ---
:1980 [facility] Address [address] [place] [address] Dr. Herron [address] [place] [id number] Care Team Providers Name Role Phone Unavailable Unavailable Unavailable Problems This patient has no known problems. Allergies, Adverse Reactions, Alerts This patient has no known allergies or adverse reactions. Medications This patient has no known medications.
--- OUTSIDE RECORDS SUMMARY | 2019-10-08 11:29 | XMS REPORT ---
:1980 [facility] Team Providers Name Role Phone Marly [...] diabetes mellitus with E11.65 Active hyperglycemia Problem assisted current use of insulin Z79.4 Active Assessment Uncontrolled type 2 diabetes E11.65 Active mellitus with hyperglycemia Problem Bipolar affective disorder, F31.9 Active remission status unspecified Problem Depression F32.9 Active Problem Depression with anxiety F41.8 Active Problem Bipolar 1 disorder F31.9 Active Medications Medication Code Code Instructions Start End Status Dosage System Date Date Pen [place] [facility] 06242818244 32G X 6 MM February 12, Active as directed subcutaneous 2017 Once daily Pen [place] [id number] 32G X 5 MM Jun 05, Active as directed subcutaneous as 2018 directed for use with Lantus Solostar Pen Sertraline HCl [facility] 54512708141 50 MG Orally Active 1 tablet Once a day (to be taken with Zoloft 25 mg) Lantus [facility] [id number] 100 UNIT/ML February 12, Active 10 units SoloStar Subcutaneous 2017 Once daily Metformin HCl [facility] 58407700948 1000 MG Orally February 13, Active 1 tablet Twice daily 2017 with a meal Sertraline HCl [facility] 27693264045 25 MG Orally Active 1 tablet Once daily (to be taken with Zoloft 50 mg) Lantus [facility] 17653094796 100 UNIT/ML Active 10 Units Subcutaneous Once daily Results Name Result Date Reference Range Unit Abnormality Flag HEMOGLOBIN A1C ----A1C 13.9% [id number] Immunizations Vaccine Administration Date Flucelvax - single dose syringe Jun 05, 2019 Summary Purpose eClinicalWorks Submission
--- OUTSIDE RECORDS SUMMARY | 2019-10-08 11:29 | XMS REPORT ---
[...] diabetes mellitus with E11.65 Active hyperglycemia Problem shelter current use of insulin Z79.4 Active Problem Bipolar affective disorder, F31.9 Active remission status unspecified Problem Depression F32.9 Active Problem Depression with anxiety F41.8 Active Problem Anxiety F41.9 Active Problem Bipolar 1 disorder F31.9 Active Problem Diabetes E11.9 Active Medications No Known Medications Results No Known Results Summary Purpose eClinicalWorks Submission
[2019-10-08] MEDS ORDERED: NA CHLORIDE 0.9% 1,000 ML ONE (12:34)
[2019-10-08 12:57] LABS: Absolute Lymphocytes (CBC) 1.5 K/uL (0.7-4.9); Basophils % 0.5 % (0-1.3); Hematocrit 39.7 % (36.0-45.0); Lymphocytes % 24.1 % (15.3-44.8); MPV 10.5 fL (7.6-11.3); RBC Red Blood Cell Count 4.62 M/uL (3.86-4.86)
[2019-10-08 13:19] LABS: Albumin 3.2 g/dL (3.4-5.0); Bilirubin Direct 0.1 mg/dL (0-0.2); Bilirubin Total 0.7 mg/dL (0.2-1.0); Potassium 3.8 mmol/L (3.5-5.1)
[2019-10-08] MEDS ORDERED: INSULIN -REGULAR HUMAN 50 UNIT/0.5 ML ML ONE (13:29)
--- NOTE | 2019-10-08 14:35 | ER ---
Nurse's Notes [facility] Name: Eduin Montgomery Age: 38 yrs Sex: Female : 1980 Arrival Date: 10/08/2019 Time: 11:31 Bed 15 Private MD: Diagnosis: Hyperglycemia, unspecified Presentation: 10/08 11:47 Presenting complaint: Patient states: has been out of her insulin for over a month iw because she lost her insurance, BS was 531 this morning and her fingers and toes were numb, also has mild headache and feels groggy. Transition of care: patient was not received from another setting of care. Onset of symptoms was October 08, 2019. Risk Assessment: Do you want to hurt yourself or someone else? Patient reports no desire to harm self or others. Initial Sepsis Screen: Does the patient meet any 2 criteria? No. Patient's initial sepsis screen is negative. Does the patient have a suspected source of infection? No. Patient's initial sepsis screen is negative. Care prior to arrival: None. 11:47 Method Of Arrival: Ambulatory iw 11:47 Acuity: RUBY 3 iw Historical: - Allergies: 11:49 NKA; iw - Home Meds: 11:49 metformin 1,000 mg Oral tab 1 tab 2 times per day [Active]; iw - PMHx: 11:49 Anxiety; Bipolar disorder; Depression; Diabetes - IDDM; Diabetes - NIDDM; iw - PSHx: 11:49 None; iw - Immunization history:: Adult Immunizations not up to date. - Coronavirus screen:: The patient has NOT traveled to [place] in the past 14 days. Proceed with normal triage process as indicated. - Social history:: Smoking status: Smoking status: Patient denies any tobacco usage or history of. - Ebola Screening: : Patient negative for fever greater than or equal to 101.5 degrees Fahrenheit, and additional compatible Ebola Virus Disease symptoms Patient denies exposure to infectious person Patient denies travel to an Ebola-affected area in the 21 days before illness onset No symptoms or risks identified at this time. Screenin:54 Abuse screen: Denies threats or abuse. Denies injuries from another. Nutritional ph screening: No deficits noted. Tuberculosis screening: No symptoms or risk factors identified. Fall Risk None identified. Assessment: 12:55 General: Appears in no apparent distress. comfortable, well groomed, Behavior is calm, ph cooperative, appropriate for age, Denies fever, feeling ill. Pain: Complains of pain in right hand, left hand, right foot and left foot Quality of pain is described as tingling, stinging. Neuro: Level of Consciousness is awake, alert, obeys commands, Oriented to person, place, time, situation, Gait is steady, Speech is normal, Reports headache Denies weakness blurred vision dizziness. Cardiovascular: Capillary refill < 3 seconds in bilateral fingers Patient's skin is warm and dry. Respiratory: Airway is patent Respiratory effort is even, unlabored, Respiratory pattern is regular, symmetrical. GI: No signs and/or symptoms were reported involving the gastrointestinal system. Derm: Skin is intact, is healthy with good turgor, Skin is pink, warm \T\ dry. Musculoskeletal: Circulation, motion, and sensation intact. Range of motion: intact in all extremities. 13:30 Reassessment: Patient appears in no apparent distress at this time. Patient and/or ph family updated on plan of care and expected duration. Pain level reassessed. Patient is alert, oriented x 3, equal unlabored respirations, skin warm/dry/pink. Vital Signs: 11:45 BP 102 / 60; Pulse 86; Resp 18; Pulse Ox 100% on R/A; ph 12:52 BP 92 / 58; Pulse 68; Resp 18; Pulse Ox 99% on R/A; ph 14:30 BP 101 / 64; Pulse 71; Resp 18; Temp 97.9; Pulse Ox 99% on R/A; ph ED Course: 11:31 Patient arrived in ED. ag5 11:44 Juan Monet MD is Attending Physician. tw4 11:47 Tiesha Reyes, KORTNEY is Primary Nurse. ph 11:49 Triage completed. iw 11:49 Arm band placed on. iw 12:40 No provider procedures requiring assistance completed. Inserted saline lock: 22 gauge ph in right antecubital area, using aseptic technique. Blood collected. 12:54 Patient has correct armband on for positive identification. Pulse ox on. NIBP on. Door ph closed. Noise minimized. Warm blanket given. 14:32 Marly Lemus MD is Referral Physician. tw4 14:50 IV discontinued, intact, bleeding controlled, No redness/swelling at site. Pressure ph dressing applied. Administered Medications: 12:45 Drug: NS 0.9% 1000 ml Route: IV; Rate: 1 bolus; Site: right antecubital; ph 14:36 Follow up: Response: No adverse reaction; IV Status: Completed infusion; IV Intake: ph 1000ml 13:30 Drug: Insulin Regular Human 10 units {Co-Signature: rb1 (Olena Castro RN).} Route: ph IVP; Site: right antecubital; 14:36 Follow up: Response: No adverse reaction; Blood sugar is lowered ph Intake: 14:36 IV: 1000ml; Total: 1000ml. ph Outcome: 14:33 Discharge ordered by . tw4 14:54 Patient left the ED. ph 14:54 Discharged to home ambulatory. ph 14:54 Condition: good 14:54 Discharge instructions given to patient, Instructed on discharge instructions, follow up and referral plans. medication usage, Demonstrated understanding of instructions, follow-up care, medications. Signatures: Rosy Arita RN RN Tiesha Reyes RN RN Juan Monet MD MD tw4 Kiara Oseguera 5 Olena Castro RN rb1 Corrections: (The following items were deleted from the chart) 19:35 13:30 BP 101 / 64; Pulse 71bpm; Resp 18bpm; Pulse Ox 99% RA; Temp 97.9F; ph ph
--- NOTE | 2019-10-08 14:36 | EDPHYS ---
Physician Documentation [facility] Name: Eduin Montgomery Age: 38 yrs Sex: Female : 1980 Arrival Date: 10/08/2019 Time: 11:31 Bed 15 Private MD: ED Physician Juan Monet HPI: 10/08 11:52 This 38 yrs old Black Female presents to ER via Unassigned with complaints of Headache, tw4 Numbness, High Blood Sugar. 11:52 The patient or guardian reports hyperglycemia. Onset: The symptoms/episode tw4 began/occurred this morning. Associated signs and symptoms: Pertinent positives: None. Pertinent negatives: None. Current symptoms: In the emergency department the patient's symptoms are unchanged from the initial presentation. The patient has not experienced similar symptoms in the past. Historical: - Allergies: 11:49 NKA; iw - Home Meds: 11:49 metformin 1,000 mg Oral tab 1 tab 2 times per day [Active]; iw - PMHx: 11:49 Anxiety; Bipolar disorder; Depression; Diabetes - IDDM; Diabetes - NIDDM; iw - PSHx: 11:49 None; iw - Immunization history:: Adult Immunizations not up to date. - Coronavirus screen:: The patient has NOT traveled to [place] in the past 14 days. Proceed with normal triage process as indicated. - Social history:: Smoking status: Smoking status: Patient denies any tobacco usage or history of. - Ebola Screening: : Patient negative for fever greater than or equal to 101.5 degrees Fahrenheit, and additional compatible Ebola Virus Disease symptoms Patient denies exposure to infectious person Patient denies travel to an Ebola-affected area in the 21 days before illness onset No symptoms or risks identified at this time. ROS: 11:52 Constitutional: Negative for fever, chills, and weight loss, Eyes: Negative for injury, tw4 pain, redness, and discharge, ENT: Negative for injury, pain, and discharge, Cardiovascular: Negative for chest pain, palpitations, and edema, Respiratory: Negative for shortness of breath, cough, wheezing, and pleuritic chest pain, Abdomen/GI: Negative for abdominal pain, nausea, vomiting, diarrhea, and constipation, Back: Negative for injury and pain. 11:52 Neuro: Positive for headache, numbness, Negative for altered mental status, dizziness, gait disturbance, hearing loss, loss of consciousness, seizure activity, speech changes, syncope, near syncope, tingling, tinnitus, tremor, visual changes, weakness. Exam: 11:52 Constitutional: This is a well developed, well nourished patient who is awake, alert, tw4 and in no acute distress. Head/Face: Normocephalic, atraumatic. Chest/axilla: Normal chest wall appearance and motion. Nontender with no deformity. No lesions are appreciated. Cardiovascular: Regular rate and rhythm with a normal S1 and S2. No gallops, murmurs, or rubs. Normal PMI, no JVD. No pulse deficits. Respiratory: Lungs have equal breath sounds bilaterally, clear to auscultation and percussion. No rales, rhonchi or wheezes noted. No increased work of breathing, no retractions or nasal flaring. Abdomen/GI: Soft, non-tender, with normal bowel sounds. No distension or tympany. No guarding or rebound. No evidence of tenderness throughout. Skin: Warm, dry with normal turgor. Normal color with no rashes, no lesions, and no evidence of cellulitis. Vital Signs: 11:45 BP 102 / 60; Pulse 86; Resp 18; Pulse Ox 100% on R/A; ph 12:52 BP 92 / 58; Pulse 68; Resp 18; Pulse Ox 99% on R/A; ph 14:30 BP 101 / 64; Pulse 71; Resp 18; Temp 97.9; Pulse Ox 99% on R/A; ph MDM: 11:46 Patient medically screened. tw4 20:06 Differential diagnosis: Roosevelt's syndrome, hyperglycemia. Data reviewed: vital signs, tw4 nurses notes. Data interpreted: Pulse oximetry: Interpretation: normal. Counseling: I had a detailed discussion with the patient and/or guardian regarding: the historical points, exam findings, and any diagnostic results supporting the discharge/admit diagnosis. Special discussion: I discussed with the patient/guardian in detail that at this point there is no indication for admission to the hospital. It is understood, however, that if the symptoms persist or worsen the patient needs to return immediately for re-evaluation. ED course: pt received 10U of insulin and BS decreased to 147. 10/08 11:55 Order name: Basic Metabolic Panel; Complete Time: 13:34 tw4 10/08 13:34 Interpretation: Normal except: NA 135; GLUC 436; GFR 89. tw4 10/08 11:55 Order name: CBC with Diff; Complete Time: 13:34 tw4 10/08 11:55 Order name: Creatinine for Radiology; Complete Time: 13:34 4 10/08 13:35 Interpretation: CRE 0.90. tw10/08 11:55 Order name: Hepatic Function; Complete Time: 13:34 tw4 10/08 13:34 Interpretation: Normal except: AST 6; ALB 3.2; GLOB 3.8; A/G 0.8. tw4 10/08 11:55 Order name: Lipase; Complete Time: 13:34 4 10/08 13:35 Interpretation: Within normal limits: LIP 122. tw10/08 12:58 Order name: Glucose, Ancillary Testing; Complete Time: 13:34 EDMS 10/08 13:34 Interpretation: Normal except: GLUC,ANCIL 440. 10/08 11:55 Order name: IV Saline Lock; Complete Time: 12:45 [facility] 10/08 11:55 Order name: Labs collected and sent; Complete Time: 12:50 tw4 10/08 11:55 Order name: Accucheck; Complete Time: 12:50 [facility] 10/08 14:29 Order name: Glucose, Ancillary Testing EDMS Administered Medications: 12:45 Drug: NS 0.9% 1000 ml Route: IV; Rate: 1 bolus; Site: right antecubital; ph 14:36 Follow up: Response: No adverse reaction; IV Status: Completed infusion; IV Intake: ph 1000ml 13:30 Drug: Insulin Regular Human 10 units {Co-Signature: rb1 (Olena Castro RN).} Route: ph IVP; Site: right antecubital; 14:36 Follow up: Response: No adverse reaction; Blood sugar is lowered ph Disposition: 10/08/19 14:33 Discharged to Home. Impression: Hyperglycemia, unspecified. - Condition is Stable. - Discharge Instructions: Hyperglycemia, Blood Glucose Monitoring, Adult. - Prescriptions for Lantus Solostar - inject 10 unit by SUBCUTANEOUS route once daily LANTUS PEN; 1 vial. - Work release form, Medication Reconciliation Form, Thank You Letter, Antibiotic Education, Prescription Opioid Use form. - Follow up: Marly Lemus MD; When: Upon discharge from the Emergency Department; Reason: If symptoms return, Recheck today's complaints, Continuance of care, Re-evaluation by your physician. - Problem is new. - Symptoms have improved. Signatures: Dispatcher [employer] Rosy Wolfe, RN RN Tiesha Hua RN RN Juan Dowd MD MD tw4 Olena Castro RN rb1 Corrections: (The following items were deleted from the chart) 14:54 14:33 10/08/2019 14:33 Discharged to Home. Impression: Hyperglycemia, unspecified. ph Condition is Stable. Forms are Medication Reconciliation Form, Thank You Letter, Antibiotic Education, Prescription Opioid Use. Follow up: Marly Lemus; When: Upon discharge from the Emergency Department; Reason: If symptoms return, Recheck today's complaints, Continuance of care, Re-evaluation by your physician. Problem is new. Symptoms have improved. tw4
[2019-10-08 15:32] VITALS: BP 92/58; O2SAT 99
== END 2019-10-08 14:54 | disposition home or self-care (01) ==
LOC: ER 11:27
DX: E11.65 Type 2 diabetes mellitus with hyperglycemia (principal)
CPT/HCPCS: 96361; 85025; 80048; 36415; 82947 ×2; 80076; 83690; 96374; 99284; J7030

== ENCOUNTER 2020-05-26 01:45 | Emergency (ER) | payer OTHER ==
[2020-05-26] MEDS ORDERED: METOCLOPRAMIDE 10 MG/2mL INJ ONE (02:41)
[2020-05-26] MEDS ORDERED: ACETAMINOPHEN 500 MG TAB ONE (02:41)
[2020-05-26] MEDS ORDERED: DIPHENHYDRAMINE 50 MG/ML VIAL ONE (02:41)
[2020-05-26] MEDS ORDERED: NA CHLORIDE 0.9% 1,000 ML ONE ×2 (02:41→03:43)
[2020-05-26 02:46] LABS: Absolute Lymphocytes (CBC) 2.5 K/uL (0.7-4.9); Basophils % 0.5 % (0-1.3); Hematocrit 38.8 % (36.0-45.0); Lymphocytes % 28.8 % (15.3-44.8); MPV 10.5 fL (7.6-11.3); RBC Red Blood Cell Count 4.39 M/uL (3.86-4.86)
[2020-05-26 03:07] LABS: Barbiturates NEGATIVE (NEGATIVE); Benzodiazepines NEGATIVE (NEGATIVE); Cocaine NEGATIVE (NEGATIVE); METHAMPHETAM NEGATIVE (NEGATIVE); Methadone NEGATIVE (NEGATIVE); Opiates NEGATIVE (NEGATIVE); Phencyclidine NEGATIVE (NEGATIVE); THC Cannibis NEGATIVE (NEGATIVE)
[2020-05-26 03:16] LABS: ALT/SGPT 18 U/L (12-78); Albumin 3.5 g/dL (3.4-5.0); Alkaline Phosphatase 72 U/L (45-117); BUN Blood Urea Nitrogen 11 mg/dL (7-18); Bicarbonate 26 mmol/L (21-32); Bilirubin Direct < 0.1 mg/dL (0-0.2); Bilirubin Total 0.2 mg/dL (0.2-1.0); Protein, Total 7.2 g/dL (6.4-8.2); Sodium Level 135 mmol/L (136-145)
[2020-05-26 03:20] LABS: AST/SGOT 10 U/L (15-37); Potassium 3.7 mmol/L (3.5-5.1)
[2020-05-26 03:21] LABS: Glucose Level 403 mg/dL (74-106)
[2020-05-26 03:28] LABS: Urine Specific Gravity 1.015 (1.005-1.030)
[2020-05-26 03:29] LABS: Urine Blood NEGATIVE (NEG); Urine Glucose 2+ (NEG); Urine Protein NEGATIVE (NEG); Urine Specific Gravity 1.015 (1.005-1.030)
[2020-05-26] MEDS ORDERED: INSULIN -REGULAR HUMAN 50 UNIT/0.5 ML ML ONE (03:42)
--- NOTE | 2020-05-26 04:37 | ER ---
Nurse's Notes [facility] Name: Eduin Montgomery Age: 39 yrs Sex: Female : 1980 Arrival Date: 05/26/2020 Time: 01:47 Bed 5 Private MD: Diagnosis: Headache;Left Elbow Pain;Hyperglycemia Presentation: 05/26 01:50 Chief complaint: Patient states: I have a headache that started around 2100. I thought jb4 it was related to my blood sugar. The last time I checked it at home it was 324. I took 800mg of Motrin at 2230 and it hasn't helped. The pain is coming and going. It starts in my anabaptist and then goes to the back of my neck, it is constant throbbing sensation and my neck gets tense when it happens. I also am having pain in my left elbow that has been there for 3-4 days that has been getting worse. Tonight I am having numbness and weakness from my left elbow to my left hand. 01:50 Coronavirus screen: Client denies travel out of the [place] in the last 14 days. At this jb4 time, the client does not indicate any symptoms associated with coronavirus-19. Ebola Screen: No symptoms or risks identified at this time. Initial Sepsis Screen: Does the patient meet any 2 criteria? No. Patient's initial sepsis screen is negative. Does the patient have a suspected source of infection? No. Patient's initial sepsis screen is negative. Risk Assessment: Do you want to hurt yourself or someone else? Patient reports no desire to harm self or others. Onset of symptoms was May 26, 2020. Transition of care: patient was not received from another setting of care. 01:50 Method Of Arrival: Ambulatory jb4 01:50 Acuity: RUBY 3 jb4 Triage Assessment: 01:50 Headache History: Denies prior headaches. General: Appears in no apparent distress. jb4 uncomfortable, Behavior is calm, cooperative, appropriate for age. Pain: Complains of pain in left temporal area, right temporal area and left elbow Pain radiates to base of the skull Pain currently is 7 out of 10 on a pain scale. Quality of pain is described as throbbing, Pain began Headache began 2100 yesterday, left elbow pain began 3-4 days ago. Is intermittent, Also complains of no other associated symptoms. EENT: No signs and/or symptoms were reported regarding the EENT system. Neuro: Level of Consciousness is awake, alert, obeys commands, Oriented to person, place, time, situation, Manager Of Program are weak on left Moves all extremities. Full function weakness below left elbow. Gait is steady, Speech is normal, Facial symmetry appears normal, Pupils are PERRLA, Numbness in below left elbow. Cardiovascular: Patient's skin is warm and dry. Respiratory: Airway is patent Respiratory effort is even, unlabored, Respiratory pattern is regular, symmetrical. GI: No signs and/or symptoms were reported involving the gastrointestinal system. : No signs and/or symptoms were reported regarding the genitourinary system. Derm: Skin is intact, Skin is dry, Skin is normal, Skin temperature is warm. Musculoskeletal: Circulation, motion, and sensation intact. Range of motion: intact in all extremities. 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 - Social history:: Smoking status: Patient reports the use of cigarette tobacco products, 3 cigarettes per day, Patient/guardian denies using alcohol, street drugs. Screenin:50 Abuse screen: Denies threats or abuse. Nutritional screening: No deficits noted. jb4 Tuberculosis screening: No symptoms or risk factors identified. Fall Risk None identified. Assessment: 01:50 General: see triage assessment.. jb4 03:00 Reassessment: Patient appears in no apparent distress at this time. Patient and/or jb4 family updated on plan of care and expected duration. Pain level reassessed. Patient is alert, oriented x 3, equal unlabored respirations, skin warm/dry/pink. Patient states feeling better. 04:00 Reassessment: Patient appears in no apparent distress at this time. Patient and/or jb4 family updated on plan of care and expected duration. Pain level reassessed. Patient is alert, oriented x 3, equal unlabored respirations, skin warm/dry/pink. 04:50 Reassessment: Patient appears in no apparent distress at this time. Patient and/or jb4 family updated on plan of care and expected duration. Pain level reassessed. Patient is alert, oriented x 3, equal unlabored respirations, skin warm/dry/pink. Vital Signs: 01:50 BP 131 / 92; Pulse 77; Resp 16; Temp 98.6(O); Pulse Ox 100% on R/A; Weight 79.38 kg jb4 (R); Height 5 ft. 9 in. (175.26 cm); Pain 7/10; 03:00 BP 102 / 64; Pulse 53; Resp 16; Pulse Ox 100% on R/A; jb4 04:00 BP 99 / 61; Pulse 58; Resp 16; Pulse Ox 100% on R/A; jb4 01:50 Body Mass Index 25.84 (79.38 kg, 175.26 cm) jb4 Otis Coma Score: 04:33 Eye Response: spontaneous(4). Verbal Response: oriented(5). Motor Response: obeys mh7 commands(6). Total: 15. ED Course: 01:47 Patient arrived in ED. cl3 01:50 Arm band placed on. jb4 01:50 Patient has correct armband on for positive identification. Bed in low position. Call jb4 light in reach. Side rails up X 1. Pulse ox on. NIBP on. 01:56 Henry Bassett MD is Attending Physician. mh7 02:01 Joe Regalado, RN is Primary Nurse. jb4 02:08 Triage completed. jb4 02:40 UDS Sent. ds4 02:57 Elbow Left 3 View XRAY In Process Unspecified. EDMS 02:59 CT Head Brain wo Cont In Process Unspecified. EDMS 03:21 Notified ED physician of a critical lab result(s). Glucose of 403, Dr Bassett notified. bb 04:35 Kurt Myers MD is Referral Physician. mh7 04:52 No provider procedures requiring assistance completed. IV discontinued, intact, jb4 bleeding controlled, No redness/swelling at site. Pressure dressing applied. Administered Medications: 02:40 Drug: Reglan 10 mg Route: IVP; Site: right antecubital; jb4 03:10 Follow up: Response: No adverse reaction; Marked relief of symptoms jb4 02:40 Drug: Tylenol 1000 mg Route: PO; jb4 03:37 Follow up: Response: No adverse reaction; Pain is decreased jb4 02:42 Drug: Benadryl 25 mg Route: IVP; Site: right antecubital; jb4 03:10 Follow up: Response: No adverse reaction; Pain is decreased jb4 02:50 Drug: NS 0.9% 1000 ml Route: IV; Rate: 1000 ml; Site: right antecubital; jb4 03:50 Follow up: Response: No adverse reaction; IV Status: Completed infusion jb4 03:30 Drug: NS 0.9% 1000 ml Route: IV; Rate: 1000 ml; Site: right antecubital; jb4 04:30 Follow up: Response: No adverse reaction; IV Status: Completed infusion jb4 03:30 Drug: Insulin Regular Human 5 units {Co-Signature: (Gerry Roa).} Route: IVP; jb4 Site: right antecubital; 04:52 Follow up: Response: No adverse reaction; Blood sugar is lowered jb4 Outcome: 04:36 Discharge ordered by . donal 04:52 Discharged to home ambulatory. jb4 04:52 Condition: stable 04:52 Discharge instructions given to patient, Instructed on discharge instructions, follow up and referral plans. medication usage, Demonstrated understanding of instructions, follow-up care, medications, Prescriptions given X 1. 04:53 Patient left the ED. jb4 Signatures: Dispatcher [employer] Sheree Mccray RN RN bb Swanson, Donovan 4 Joe Regalado RN RN jb4 Lewis, Charde cl3 Henry Bassett MD MD [facility] Gerry Roa Corrections: (The following items were deleted from the chart) 04:52 04:00 No provider procedures requiring assistance completed. jb4 jb4 04:52 04:00 IV discontinued, intact, bleeding controlled, No redness/swelling at site. jb4 Pressure dressing applied, jb4
--- NOTE | 2020-05-26 04:37 | EDPHYS ---
Physician Documentation [facility] Name: Eduin Montgomery Age: 39 yrs Sex: Female : 1980 Arrival Date: 05/26/2020 Time: 01:47 Bed 5 Private MD: ED Physician Henry Bassett HPI: 05/26 03:04 This 39 yrs old Black Female presents to ER via Ambulatory with complaints of Headache, mh7 Low Blood Sugar. 03:04 The patient complains of pain to the forehead. The patient describes the headache as mh7 throbbing, waxing and waning. Onset: The symptoms/episode began/occurred yesterday, at 17:30. 03:05 Associated signs and symptoms: Pertinent negatives: altered mental status, dizziness, mh7 fever, malaise, nausea, neck stiffness, paresthesias, Photophobia rash, sinus congestion, sinus tenderness, vision changes, vision loss, vomiting, weakness, vertigo. Severity of symptoms: At its worst the pain was moderate, last night, in the emergency department the pain has improved, moderately. Headache History: The patient has had previous headaches and this one is similar to previous episodes. The symptoms are alleviated by nothing. the symptoms are aggravated by lights, noise. Patient states that she started having pain on her left elbow with movement then later started having a headache she also had elevated blood sugar. She denies any fever, nausea, vomiting, chest pain, abdominal pain, SOB, dizziness, numbness/tingling, or weakness.. 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 - Social history:: Smoking status: Patient reports the use of cigarette tobacco products, 3 cigarettes per day, Patient/guardian denies using alcohol, street drugs. ROS: 03:05 Constitutional: Negative for fever, chills, and weight loss, Eyes: Negative for injury, mh7 pain, redness, and discharge, ENT: Negative for injury, pain, and discharge, Neck: Negative for injury, pain, and swelling, Cardiovascular: Negative for chest pain, palpitations, and edema, Respiratory: Negative for shortness of breath, cough, wheezing, and pleuritic chest pain, Abdomen/GI: Negative for abdominal pain, nausea, vomiting, diarrhea, and constipation, Back: Negative for injury and pain, : Negative for injury, bleeding, discharge, and swelling, Skin: Negative for injury, rash, and discoloration, Psych: Negative for depression, anxiety, suicide ideation, homicidal ideation, and hallucinations, Allergy/Immunology: Negative for hives, rash, and allergies, Endocrine: Negative for neck swelling, polydipsia, polyuria, polyphagia, and marked weight changes, Hematologic/Lymphatic: Negative for swollen nodes, abnormal bleeding, and unusual bruising. Exam: 03:19 Constitutional: This is a well developed, well nourished patient who is awake, alert, mh7 and in no acute distress. Head/Face: Normocephalic, atraumatic. Eyes: Pupils equal round and reactive to light, extra-ocular motions intact. Lids and lashes normal. Conjunctiva and sclera are non-icteric and not injected. Cornea within normal limits. Periorbital areas with no swelling, redness, or edema. Neck: Trachea midline, no thyromegaly or masses palpated, and no cervical lymphadenopathy. Supple, full range of motion without nuchal rigidity, or vertebral point tenderness. No Meningismus. Chest/axilla: Normal chest wall appearance and motion. Nontender with no deformity. No lesions are appreciated. Cardiovascular: Regular rate and rhythm with a normal S1 and S2. No gallops, murmurs, or rubs. Normal PMI, no JVD. No pulse deficits. Respiratory: Lungs have equal breath sounds bilaterally, clear to auscultation and percussion. No rales, rhonchi or wheezes noted. No increased work of breathing, no retractions or nasal flaring. Abdomen/GI: Soft, non-tender, with normal bowel sounds. No distension or tympany. No guarding or rebound. No evidence of tenderness throughout. Back: No spinal tenderness. No costovertebral tenderness. Full range of motion. Skin: Warm, dry with normal turgor. Normal color with no rashes, no lesions, and no evidence of cellulitis. 03:19 Neuro: Awake and alert, GCS 15, oriented to person, place, time, and situation. Cranial nerves II-XII grossly intact. Motor strength 5/5 in all extremities. Sensory grossly intact. Cerebellar exam normal. Normal gait. Psych: Awake, alert, with orientation to person, place and time. Behavior, mood, and affect are within normal limits. 03:19 Musculoskeletal/extremity: Extremities: noted in the medial left elbow: tenderness, ROM: limited active range of motion due to pain, in the left elbow, limited passive range of motion due to pain, in the left elbow, Circulation is intact in all extremities. Pulses: are normal with no appreciated deficits, Perfusion: the patient is normally perfused throughout, Perfusion: the extremity is normally perfused throughout, Sensation intact. Compartment Syndrome exam of affected extremity: is normal. no numbness, no tingling, no sensation deficit, no palor, no weak pulses, Joints: the left elbow displays tenderness, Weight bearing: able to fully bear weight, without difficulty, Tendon exam: specific tendon testing normal through active and passive range of motion DVT Exam: no swelling, negative Homans' sign noted on exam, no appreciated bluish discoloration, no erythema, no increased warmth. Vital Signs: 01:50 BP 131 / 92; Pulse 77; Resp 16; Temp 98.6(O); Pulse Ox 100% on R/A; Weight 79.38 kg jb4 (R); Height 5 ft. 9 in. (175.26 cm); Pain 7/10; 03:00 BP 102 / 64; Pulse 53; Resp 16; Pulse Ox 100% on R/A; jb4 04:00 BP 99 / 61; Pulse 58; Resp 16; Pulse Ox 100% on R/A; jb4 01:50 Body Mass Index 25.84 (79.38 kg, 175.26 cm) jb4 Otis Coma Score: 04:33 Eye Response: spontaneous(4). Verbal Response: oriented(5). Motor Response: obeys 7 commands(6). Total: 15. MDM: 02:23 Patient medically screened. 7 04:33 Differential diagnosis: cluster headache, hypoglycemia, hyponatremia, migraine, tension mh7 headache, Hyperglycemia. Data reviewed: vital signs, nurses notes, old medical records, lab test result(s), CBC, electrolytes, urinalysis, EKG, radiologic studies, CT scan, plain films. Data interpreted: Pulse oximetry: on room air is 100 %. Interpretation: normal. Counseling: I had a detailed discussion with the patient and/or guardian regarding: the historical points, exam findings, and any diagnostic results supporting the discharge/admit diagnosis, lab results, radiology results, the need for outpatient follow up, to return to the emergency department if symptoms worsen or persist or if there are any questions or concerns that arise at home. Response to treatment: the patient's symptoms have resolved after treatment, the patient's blood pressure is in an acceptable range, mental status has returned to baseline, the patient no longer shows bradycardia, the patient is not short of breath, the patient is not tachycardic, the patient's pain is gone, the patient's temperature has normalized. 05/26 02:09 Order name: Glucose, Ancillary Testing; Complete Time: 02:18 EDMS 05/26 02:21 Order name: CBC with Diff; Complete Time: 03:10 mh7 05/26 02:21 Order name: Basic Metabolic Panel; Complete Time: 03:22 mh7 05/26 02:21 Order name: LFT's; Complete Time: 03:22 7 05/26 02:21 Order name: UDS; Complete Time: 03:10 mh7 05/26 02:41 Order name: Urine --Ancillary (enter results); Complete Time: 03:38 ds4 05/26 02:21 Order name: Elbow Left 3 View XRAY 7 05/26 02:21 Order name: CT Head Brain wo Cont 7 05/26 02:42 Order name: Urine Dipstick--Ancillary (enter results); Complete Time: 03:38 ds4 05/26 04:42 Order name: Glucose, Ancillary Testing EDMN 05/26 02:21 Order name: Urine Dipstick-Ancillary (obtain specimen); Complete Time: 02:40 mh7 05/26 02:21 Order name: Urine Test (obtain specimen); Complete Time: 02:40 7 05/26 03:11 Order name: EKG - Nurse/Tech; Complete Time: 03:38 mh7 Administered Medications: 02:40 Drug: Reglan 10 mg Route: IVP; Site: right antecubital; jb4 03:10 Follow up: Response: No adverse reaction; Marked relief of symptoms jb4 02:40 Drug: Tylenol 1000 mg Route: PO; jb4 03:37 Follow up: Response: No adverse reaction; Pain is decreased jb4 02:42 Drug: Benadryl 25 mg Route: IVP; Site: right antecubital; jb4 03:10 Follow up: Response: No adverse reaction; Pain is decreased jb4 02:50 Drug: NS 0.9% 1000 ml Route: IV; Rate: 1000 ml; Site: right antecubital; jb4 03:50 Follow up: Response: No adverse reaction; IV Status: Completed infusion jb4 03:30 Drug: NS 0.9% 1000 ml Route: IV; Rate: 1000 ml; Site: right antecubital; jb4 04:30 Follow up: Response: No adverse reaction; IV Status: Completed infusion jb4 03:30 Drug: Insulin Regular Human 5 units {Co-Signature: imelda (Gerry Roa).} Route: IVP; jb4 Site: right antecubital; 04:52 Follow up: Response: No adverse reaction; Blood sugar is lowered jb4 Disposition: 05/26/20 04:36 Discharged to Home. Impression: Headache, Left Elbow Pain, Hyperglycemia. - Condition is Stable. - Discharge Instructions: General Headache Without Cause, Hyperglycemia, Drbi-yu-Owwd, Joint Pain, [id number]-[id number]. - Prescriptions for ketorolac 10 mg Oral tablet - take 1 tablet by ORAL route every 8 hours As needed for up to 5 days total use; 12 tablet. - Medication Reconciliation Form, Thank You Letter, Antibiotic Education, Prescription Opioid Use form. - Follow up: Private Physician; When: 1 - 2 days; Reason: Worsening of condition, Recheck today's complaints, Continuance of care, Re-evaluation by your physician. Follow up: Kurt Myers MD; When: 1 - 2 days; Reason: Worsening of condition, Recheck today's complaints. - Problem is new. - Symptoms have improved. Signatures: Dispatcher [employer] EDJoe Reardon RN RN jb4 Henry Bassett MD MD 7 Gerry segura Corrections: (The following items were deleted from the chart) 04:38 04:36 05/26/2020 04:36 Discharged to Home. Impression: Headache; Left Elbow Pain. mh7 Condition is Stable. Forms are Medication Reconciliation Form, Thank You Letter, Antibiotic Education, Prescription Opioid Use. Follow up: Private Physician; When: 1 - 2 days; Reason: Worsening of condition, Recheck today's complaints, Continuance of care, Re-evaluation by your physician. Follow up: Kurt Myers; When: 1 - 2 days; Reason: Worsening of condition, Recheck today's complaints. Problem is new. Symptoms have improved. mh7 04:53 04:38 05/26/2020 04:36 Discharged to Home. Impression: Headache; Left Elbow Pain; jb4 Hyperglycemia. Condition is Stable. Discharge Instructions: General Headache Without Cause, Joint Pain, [id number]-[id number]. Forms are Medication Reconciliation Form, Thank You Letter, Antibiotic Education, Prescription Opioid Use. Follow up: Private Physician; When: 1 - 2 days; Reason: Worsening of condition, Recheck today's complaints, Continuance of care, Re-evaluation by your physician. Follow up: Kurt Myers; When: 1 - 2 days; Reason: Worsening of condition, Recheck today's complaints. Problem is new. Symptoms have improved. mh7
[2020-05-26 05:06] VITALS: TEMP 98.6; O2SAT 100
[2020-05-26 05:09] VITALS: BP 99/61
--- NOTE | 2020-05-26 14:30 | RAD REPORT ---
EXAM DESCRIPTION: RAD - Elbow Left 3 View - 05/26/2020 2:55 am CLINICAL HISTORY: PAIN TECHNIQUE: Three views of the left elbow are submitted. COMPARISON: None available for comparison FINDINGS: Bones: No acute fracture. Joints: No dislocation. No appreciable joint effusion. Soft tissues: Unremarkable IMPRESSION: No acute abnormality. Electronically signed by: Janessa Kohler MD 05/26/2020 3:10 AM CDT Due to temporary technical issues with the PACS/Fluency reporting system, reports are being signed by the in house radiologist without review as a courtesy to ensure prompt reporting. The interpreting r adiologist is fully responsible for the content of the report.
--- NOTE | 2020-05-26 14:31 | RAD REPORT ---
EXAM DESCRIPTION: CT - Head Brain Wo Cont - 05/26/2020 6:47 am CLINICAL HISTORY: HEADACHE TECHNIQUE: Contiguous axial CT images obtained through the brain without IV contrast. Coronal and sa gittal reformatted images were provided. This exam was performed according to our departmental dose-optimization program, which includes autom ated exposure control, adjustment of the mA and/or kV according to patient size and/or use of iterati ve reconstruction technique. COMPARISON: None available for comparison FINDINGS: Brain: No significant white matter changes. No focal mass effect. Torres-white matter differ entiation is within normal limits. No hemorrhage. Ventricles: No ventriculomegaly or midline shift. Extra-axial spaces: No extra-axial collection or hemorrhage. Paranasal sinuses and mastoid air cells: Well-aerated Vessels: Unremarkable Bones: Unremarkable Soft tissues: Unremarkable IMPRESSION: No acute intracranial or extra-axial abnormality. Electronically signed by: Janessa Kohler MD 05/26/2020 3:12 AM CDT Due to temporary technical issues with the PACS/Fluency reporting system, reports are being signed by the in house radiologist without review as a courtesy to ensure prompt reporting. The interpreting r adiologist is fully responsible for the content of the report.
--- NOTE | 2020-05-27 05:58 | EKG ---
Test Date: 2020-05-26 Test Time: 03:42:13 Laser Cutter: JENNIFER MEASUREMENT RESULTS: Intervals: Rate: 54 SC: 146 QRSD: 88 QT: 470 QTc: 445 Conesus: P: 51 SC: 146 QRS: 57 T: 22 INTERPRETIVE STATEMENTS: Sinus bradycardia Otherwise normal ECG Compared to ECG 08/18/2019 06:36:16 No significant changes Electronically Signed On 05-27-20 05:56:00 CDT by Meir Renner
--- OUTSIDE RECORDS SUMMARY | 2020-05-28 09:56 | XMS REPORT | Continuity of Care Document ---
:1980 Author Organization [facility] t Address 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 [facility] use of use of [facility] Bipolar 1 Bipolar [address] [facility] disorder disorder [facility] - [facility] ent [facility] Type 2 Type [address] [facility] diabetes diabetes [facility] - mellitus mellitus Memori a with with l hyperglyce hyperglyce Ou tpati [facility] ent [facility] Depression Depression Problem Active [facility] with with [facility] - anxiety anxiety Memoria l [facility] Anxiety Anxiety Problem Active [facility] - Memoria l [facility] ent [facility] Depression Depression Problem [facility] ent [facility] Diabetes Diabetes Problem [facility] Dietary Dietary Problem Active [facility] counseling counseling [facility] - Memoria [facility] ent [facility] Obesity Obesity Problem Active [facility] (BMI (BMI [facility] - 30.0-34.9) 30.0-34.9) Me moria l [facility] ent [facility] History of History of Problem Active [facility] anxiety anxiety [facility] - Memoria l [facility] ent [facility] Unspecifie Unspecifie Problem Active [facility] d lump in d lump in [facility] - the right the right Alejandro fareed breast, breast, l unspecifie unspecifie Ou tpati d quadrant d quadrant en t Clinics Unspecifie Unspecifie Problem Active [facility] d lump in d lump in Luke s - the left the left Memori a breast, breast, l unspecifie unspecifie Ou tpati d quadrant d quadrant en t Clinics Influenza Influenza Problem Active [facility] vaccinatio vaccinatio [place]ci kes - n n Memoria administer administer l ed at ed at [facility] current current ent visit visit Clinics Dysphagia, Dysphagia, Problem Active [facility] unspecifie unspecifie [place]ci kes - d type d type Memoria l [facility] Weight Weight Problem [facility] Allergies, Adverse Reactions, Alerts This patient has no known allergies or adverse reactions. Medications Ordered Filled Start Stop Current Ordering Indication Dosage Frequency Signature Comments Components Source Medication Medication Date Date Medication? Clinician (SIG) Name Name Pen Drayton Pen Drayton 2018-08 Yes Marly as [facility] 0-16 [facility] directed [facility] - 00:00: Memoria 00 l [facility] Metformin Metformin Yes Marly [address] [facility] HCl HCl 6-26 [place] with a [facility] - 00:00: meal Memoria 00 l [facility] Pen Drayton Pen Drayton Yes Marly as [facility] 6-25 Millender directed [facility] - 00:00: Memoria 00 l [facility] Lantus Lantus 0 Yes Marly [address] [facility] SoloStar SoloStar 6-25 Millender Nicci kes - 00:00: Memoria 00 l [facility] Lantus Lantus Yes Marly [address] [facility] Sertraline Sertraline Yes Marly [address] [facility] HCl HCl Millender (to be [facility] - taken with Memoria Zoloft 25 l mg) [facility] Sertraline Sertraline Yes Marly [address] [facility] HCl HCl Millender (to be [facility] - taken with Memoria Zoloft 50 l mg) [facility] Immunizations Ordered Filled Immunization Date Status Comments Sour e Immunization Name Name Flucelvax - single Flucelvax - single 2019-06-[address] [facility] - dose syringe dose syringe 00:00:00 [facility] Procedures This patient has no known procedures. Encounters Start End Encounter Admission Attending Care Care Encounter Source Date/Time Date/Time Type Type Clinicians Facility Department ID 2020-01-17 2020-01-17 [facility] Emil NEGUSTAVO [id number] 08:15:28 08:45:28 ne Visit Avila Vallejo [id number] [facility] [id number] Professio [id number] [facility] Building 2019-11-18 2019-11-18 [facility] [id number] [facility] 16:14:00 16:14:00 [facility] Medicine Outpati ent Clinics 2019-10-15 2019-11-08 Office Kenji [facility] [id number] 09:36:18 14:53:14 Visit María Vallejo [id number] [place] [id number] Professio [id number] [facility] 2019-07-09 2019-07-09 [facility] [id number] [facility] 02:50:00 02:50:00 [facility] Medicine Outpati ent Clinics 2019-06-05 2019-06-05 [facility] [id number] 08:20:00 08:20:00 [facility] Medicine Outpati ent Clinics 2018-03-14 2018-03-14 [facility] [id number] 23:06:00 23:06:00 [facility] Medicine Outpati ent Clinics 2018-03-14 2018-03-14 [facility] [id number] [address] 13:15:00 13:15:00 [facility] Medicine Outpati ent Clinics 2018-02-22 2018-02-22 [facility] [id number] [address] 15:14:00 15:14:00 [facility] Medicine Outpati ent Clinics 2018-02-13 2018-02-13 [facility] [id number] 11:01:00 11:01:00 [facility] Medicine Outpati ent Clinics 2018-02-13 2018-02-13 [facility] [id number] 01:15:00 01:15:00 [facility] Medicine Outpati ent Clinics 2018-02-12 2018-02-12 [facility] [id number] [address] 11:15:00 11:15:00 [facility] Medicine Outpati ent Clinics 2018-01-16 2018-01-16 [facility] [id number] 23[facility]01:00 23:01:00 [facility] Outpati ent Clinics 2018-01-16 2018-01-16 [facility] [id number] 15:00:00 15:00:00 [facility] Results This patient has no known results.
== END 2020-05-26 04:53 | disposition home or self-care (01) ==
LOC: ER 01:45
DX: E11.65 Type 2 diabetes mellitus with hyperglycemia (principal); M25.522 Pain in left elbow; F31.9 Bipolar disorder, unspecified; F17.210 Nicotine dependence, cigarettes, uncomplicated; Z79.4 Long term (current) use of insulin
CPT/HCPCS: 96361; 93005; 85025; 80048; 36415; 81025; 82947 ×2; 80076; 80307 ×8; 81003; 70450; 73080; 96375; 96374; 99284; J2765; J1200; J7030 ×2

== ENCOUNTER 2021-02-08 17:00 | Emergency (ER) | payer OTHER ==
--- OUTSIDE RECORDS SUMMARY | 2021-02-08 17:02 | XMS REPORT | Continuity of Care Document ---
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 Active [facility] Bipolar 1 Bipolar [address] [facility] Type 2 Type [address] [facility] diabetes diabetes [facility] - mellitus mellitus Memori a with with l hyperglyce hyperglyce Ou [facility] Depression Depression Problem Active [facility] with [facility] Anxiety Anxiety Problem [facility] Depression Depression Problem [facility] Diabetes Diabetes Problem [facility] Dietary Dietary Problem Active [facility] counseling counseling [facility] Obesity Obesity Problem Active [facility] (BMI (BMI [facility] - 30.0-34.9) 30.0-34.9) [facility] History of History of Problem Active [facility] Unspecifie Unspecifie Problem Active [facility] [...] administer administer l ed at ed at [facility] current current ent visit visit Clinics Dysphagia, Dysphagia, Problem Active [facility] unspecifie unspecifie [facility] - d type d type [facility]oria l [facility] ent Clinics Weight Weight Problem Active [facility] Allergies, Adverse Reactions, Alerts This patient has no known allergies or adverse reactions. Medications Ordered Filled Start Stop Current Ordering Indication Dosage Frequency Signature Comments Components Source Medication Medication Date Date Medication? Clinician (SIG) Name Name [facility] 2018-08 Yes Marly as [facility] 0-16 [facility] directed [facility] - 00:00: [facility] 00 [facility] ent [facility] Metformin Metformin Yes Marly [address] [facility] HCl HCl 6-26 Millender with a [facility] - 00:[facility]: meal [facility] Yes Marly as [facility] 6-25 Millender directed [facility] Lantus Lantus Yes Marly [address] [facility] SoloStar SoloStar 6-25 Millender [facility] - 00:[facility]: [facility] Lantus Lantus Yes Marly [address] [facility] Millender [facility] Sertraline Sertraline Yes Marly [address] [facility] HCl HCl Millender (to be [facility] - taken with [facility]oria Zoloft 25 l mg) [facility] Sertraline Sertraline Yes Marly [address] [address] HCl HCl Millender (to be [facility] - taken with [facility]oria Zoloft 50 l mg) [facility] Immunizations Ordered Filled Immunization Date Status Comments [facility] e Immunization Name Name Flucelvax - single Flucelvax - single 2019-06-05 Completed [facility] - dose syringe dose syringe 00:00:00 [facility] Procedures This patient has no known procedures. Encounters Start End Encounter Admission Attending Care Care Encounter Source Date/Time Date/Time Type Type Clinicians Facility Department ID 2020-12-22 2020-12-22 Case Mary Jo Coe [id number] 00:00:00 00:00:00 Management Sheree Srivastava [id number] [place] [id number] 2020-11-09 2020-11-09 Patient Piyush [facility] [id number] 00:00:00 00:00:00 Outreach Osiel [facility] [id number] [facility] [id number] ANNMARIE [id number] 2020-06-24 2020-06-24 Orders Doctor NAVIN [id number] 00:00:00 00:00:00 Only Unassigned, BELINDA [id number] [facility] [id number] 2020-06-23 2020-06-23 Telephone Emil [facility] [id number] 00:00:00 00:00:00 [place] [id number] [place] [id number] Professio [phone] [facility] [address] [facility] 2020-01-17 2020-01-17 Telemedici Emil [facility] [id number] 08:15:28 08:45:28 ne Visit [facility]ila [place]lejo [id number] [place] [id number] Professio [phone] [facility] Building 2019-11-18 2019-11-18 [facility] [id number] [facility] 16:14:00 16:14:00 [facility] 2019-10-15 2019-11-08 Office Kenji [facility] [id number] 09:36:18 14:53:14 Visit María Branton [id number] [place] [id number] [facility] [phone] [address] 2019-07-09 2019-07-09 [facility] [id number] [address] 02:50:00 02:50:00 t [facility] Medicine Outpati ent Clinics 2019-06-05 2019-06-05 [facility] [id number] [address] 08:20:00 08:20:00 t [facility] Medicine Medicine Outpati ent Clinics 2018-03-14 2018-03-14 [facility] [id number] 23:06:00 23:06:00 [facility] Medicine Outpati ent Clinics 2018-03-14 2018-03-14 [facility] [id number] [address] 13:15:00 13:15:00 t [facility] Medicine Outpati ent Clinics 2018-02-22 2018-02-22 [facility] [id number] 15:14:00 15:14:00 t [facility] Medicine Outpati ent Clinics 2018-02-13 2018-02-13 [facility] [id number] 11:01:00 11:01:00 t [facility] Medicine Outpati ent Clinics 2018-02-13 2018-02-13 [facility] [id number] 01:15:00 01:15:00 t [facility] Medicine Medicine Outpati ent Clinics 2018-02-12 2018-02-12 [facility] [id number] 11:15:00 11:15:00 t [facility] Medicine Outpati ent Clinics 2018-01-16 2018-01-16 [facility] [id number] 23:01:00 23:01:00 t [facility] Medicine Outpati ent Clinics 2018-01-16 2018-01-16 Outpatient Maryam Martínez [id number] 15:00:00 15:00:00 [facility] ent Clinics Results This patient has no known results.
[2021-02-08 18:05] LABS: Absolute Lymphocytes (CBC) 1.8 K/uL (0.7-4.9); Basophils % 0.4 % (0-1.3); Hematocrit 38.1 % (36.0-45.0); Lymphocytes % 28.3 % (15.3-44.8); MPV 10.7 fL (7.6-11.3); RBC Red Blood Cell Count 4.41 M/uL (3.86-4.86)
[2021-02-08] MEDS ORDERED: NA CHLORIDE 0.9% 1,000 ML ONE ×2 (18:23→19:48)
[2021-02-08 18:34] LABS: ALT/SGPT 21 U/L (12-78); AST/SGOT 11 U/L (15-37); Albumin 3.4 g/dL (3.4-5.0); Alkaline Phosphatase 76 U/L (45-117); BUN Blood Urea Nitrogen 10 mg/dL (7-18); Bicarbonate 29 mmol/L (21-32); Bilirubin Direct < 0.1 mg/dL (0-0.2); Bilirubin Total 0.2 mg/dL (0.2-1.0); Potassium 4.2 mmol/L (3.5-5.1); Protein, Total 7.3 g/dL (6.4-8.2); Sodium Level 133 mmol/L (136-145); Troponin (Emerg Dept Use Only) < 0.02 ng/mL (0.0-0.045)
[2021-02-08 18:36] LABS: Glucose Level 553 mg/dL (74-106)
--- NOTE | 2021-02-08 18:45 | RAD REPORT ---
EXAM DESCRIPTION: RAD - Chest Single View - 02/08/2021 6:17 pm CLINICAL HISTORY: CHEST PAIN Chest pain. COMPARISON: Chest Single View dated 08/18/2019; Chest Single View dated 12/07/2015 FINDINGS: Portable technique limits examination quality. The lungs are grossly clear. The heart is normal in size. No displaced fractures. IMPRESSION: No acute intrathoracic process suspected.
[2021-02-08] MEDS ORDERED: INSULIN -REGULAR HUMAN 50 UNIT/0.5 ML ML ONE (19:49)
--- NOTE | 2021-02-08 20:46 | ER ---
Nurse's Notes [facility] Name: Eduin Costa Age: 40 yrs Sex: Female : 1980 Arrival Date: 02/08/2021 Time: 17:05 Bed 7 Private MD: Diagnosis: Hyperglycemia, unspecified Presentation: 02/08 17:12 Chief complaint: Patient states: Blurred vision since . Saw here PCP today, ll1 sugar read hi, they told her to come in for eval. Coronavirus screen: Client denies travel out of the [place] in the last 14 days. At this time, the client does not indicate any symptoms associated with coronavirus-19. Ebola Screen: Patient denies travel to an Ebola-affected area in the 21 days before illness onset. Initial Sepsis Screen: Does the patient meet any 2 criteria? No. Patient's initial sepsis screen is negative. Does the patient have a suspected source of infection? No. Patient's initial sepsis screen is negative. Risk Assessment: Do you want to hurt yourself or someone else? Patient reports no desire to harm self or others. Onset of symptoms was February 04, 2021. 17:12 Method Of Arrival: Ambulatory ll1 17:12 Acuity: RUBY 2 ll1 Historical: - Allergies: 17:14 NKA; ll1 - PMHx: 17:14 Bipolar disorder; Depression; Diabetes - IDDM; Diabetes - NIDDM; Anxiety; ll1 - PSHx: 17:14 None; ll1 - Immunization history:: Client reports having NOT received the Covid vaccine. Flu vaccine status is unknown. - Social history:: Smoking status: Patient denies any tobacco usage or history of. Screenin:40 Abuse screen: Denies threats or abuse. Nutritional screening: No deficits noted. aa5 Tuberculosis screening: No symptoms or risk factors identified. Fall Risk None identified. Assessment: 17:40 General: Appears comfortable, Behavior is calm, cooperative. Pain: Denies pain. Neuro: aa5 Level of Consciousness is awake, alert, obeys commands, Oriented to person, place, time, situation, Electric Meter Inspector are equal bilaterally Moves all extremities. Gait is steady, Speech is normal, Facial symmetry appears normal, Reports blurred vision. Cardiovascular: Reports lightheadedness, Heart tones S1 S2 present Rhythm is regular. Respiratory: Airway is patent Respiratory effort is even, unlabored, Respiratory pattern is regular, symmetrical. GI: Abdomen is round non-distended, Bowel sounds present X 4 quads. Abd is soft and non tender X 4 quads. Patient currently denies nausea, vomiting. : No signs and/or symptoms were reported regarding the genitourinary system. EENT: No signs and/or symptoms were reported regarding the EENT system. Derm: Skin is dry, Skin is normal, Skin temperature is warm. Musculoskeletal: Range of motion: intact in all extremities. 18:30 Reassessment: Warm blanket given for comfort . Neuro: Level of Consciousness is awake, aa5 alert, obeys commands, Oriented to person, place, time, situation. Respiratory: Airway is patent Respiratory effort is even, unlabored, Respiratory pattern is regular, symmetrical. Derm: Skin is dry, Skin is normal, Skin temperature is warm. 19:33 Reassessment: Patient appears in no apparent distress at this time. Patient and/or ad5 family updated on plan of care and expected duration. Pain level reassessed. Patient is alert, oriented x 3, equal unlabored respirations, skin warm/dry/pink. Patient states feeling better. 19:33 General: Appears in no apparent distress. Behavior is calm, cooperative, appropriate ad5 for age. Neuro: No deficits noted. Level of Consciousness is awake, alert, obeys commands, Oriented to person, place, time, situation, Appropriate for age. Cardiovascular: No deficits noted. Capillary refill < 3 seconds Patient's skin is warm and dry. Respiratory: Airway is patent Respiratory effort is even, unlabored, Respiratory pattern is regular, symmetrical. 20:53 Reassessment: Patient and/or family updated on plan of care and expected duration. Pain ea level reassessed. Patient is alert, oriented x 3, equal unlabored respirations, skin warm/dry/pink. Discharge instruction given to patient verbalized the understanding of instruction. Pt left ED ambulatory tolerating well. Patient states feeling better. Patient states symptoms have improved. Vital Signs: 17:12 BP 112 / 71; Pulse 74; Resp 16; Temp 97.8; Pulse Ox 100% ; Weight 78.93 kg; Height 5 ll1 ft. 9 in. (175.26 cm); Pain 0/10; 19:32 BP 99 / 71; Pulse 57; Resp 16 S; Pulse Ox 100% on R/A; ad5 20:00 BP 102 / 71; Pulse 79; Resp 16; Pulse Ox 100% ; ea 17:12 Body Mass Index 25.70 (78.93 kg, 175.26 cm) ll1 ED Course: 17:05 Patient arrived in ED. as 17:14 Triage completed. ll1 17:15 Arm band placed on. ll1 17:21 Carlos Ruffin NP is PHCP. pm1 17:21 Isaias Callejas MD is Attending Physician. pm1 17:24 Jenny Barclay, KORTNEY is Primary Nurse. aa5 17:40 Patient has correct armband on for positive identification. Placed in gown. Bed in low aa5 position. Call light in reach. Side rails up X2. property assessment monitor on. Pulse ox on. NIBP on. 17:45 Initial lab(s) drawn, by me, sent to lab. Inserted saline lock: 20 gauge in right aa5 antecubital area, using aseptic technique. Blood collected. 18:00 EKG done, by ED staff, reviewed by Carlos Ruffin NP. em1 18:17 XRAY Chest (1 view) In Process Unspecified. EDMS 19:17 Report given to KORTNEY Bronson and KORTNEY Moralez. aa5 20:52 No provider procedures requiring assistance completed. IV discontinued, intact, ea bleeding controlled, No redness/swelling at site. Pressure dressing applied. Administered Medications: 18:00 Drug: NS 0.9% 1000 ml Route: IV; Rate: 1000 ml; Site: right antecubital; aa5 20:48 Follow up: IV Status: Completed infusion; IV Intake: 1000ml ea 19:32 Drug: Insulin Regular Human 10 units {Co-Signature: moshe (Aiyana Tadeo RN).} Route: IVP; ad5 Site: right antecubital; 20:48 Follow up: Response: No adverse reaction; Blood sugar is lowered ea 19:32 Drug: NS 0.9% 1000 ml Route: IV; Rate: 1000 ml; Site: right antecubital; ad5 20:48 Follow up: IV Status: Completed infusion; IV Intake: 1000ml ea Intake: 20:48 IV: 1000ml; Total: 1000ml. ea 20:48 IV: 1000ml; Total: 2000ml. ea Outcome: 20:45 Discharge ordered by . pm1 20:52 Discharged to home ambulatory. ea 20:52 Condition: stable 20:52 Discharge instructions given to patient, Instructed on discharge instructions, follow up and referral plans. Demonstrated understanding of instructions, follow-up care. 20:53 Patient left the ED. ea Signatures: Dispatcher [employer] EDLaly Way Eric em1 Jenny Barclay, KORTNEY RN aa5 Carlos Ruffin, KVNG FOREIGN FOOD SPECIALTY COOK pm1 Aiyana Tadeo RN RN ea Lewis, Lynsay, RN RN 1 Kirt Sesay RN, ea
--- NOTE | 2021-02-08 20:46 | EDPHYS ---
Physician Documentation [facility] Name: Eduin Costa Age: 40 yrs Sex: Female : 1980 Arrival Date: 02/08/2021 Time: 17:05 Bed 7 Private MD: ED Physician Isaias Callejas HPI: 02/08 18:06 This 40 yrs old Black Female presents to ER via Ambulatory with complaints of High pm1 Blood Sugar, OVER 600. 18:06 The patient or guardian reports hyperglycemia, that was potentially precipitated by Not pm1 checking her blood sugars for multiple months. Does not have a working glucometer. Onset: The symptoms/episode began/occurred Patient reports blurred vision, polydipsia, polyuria since . Went to her PCP today for evaluation of symptoms and was told to report to the ER for evaluation and treatment. Associated signs and symptoms: Pertinent positives: polydipsia, polyuria, chest pain. Current symptoms: In the emergency department the patient's symptoms are unchanged from the initial presentation. The patient has been recently seen by a physician: the patient's primary care provider, with similar presenting complaints, and was sent to the [facility] Emergency Department for further evaluation. Historical: - Allergies: 17:14 NKA; ll1 - PMHx: 17:14 Bipolar disorder; Depression; Diabetes - IDDM; Diabetes - NIDDM; Anxiety; ll1 - PSHx: 17:14 None; ll1 - Immunization history:: Client reports having NOT received the Covid vaccine. Flu vaccine status is unknown. - Social history:: Smoking status: Patient denies any tobacco usage or history of. ROS: 18:06 Constitutional: Negative for fever, chills, and weight loss. pm1 18:06 ENT: Negative for injury, pain, and discharge, Respiratory: Negative for shortness of breath, cough, wheezing, and pleuritic chest pain. 18:06 Abdomen/GI: Negative for abdominal pain, nausea, vomiting, diarrhea, and constipation, Back: Negative for injury and pain, MS/Extremity: Negative for injury and deformity, Skin: Negative for injury, rash, and discoloration. 18:06 Neuro: Negative for headache, weakness, numbness, tingling, and seizure. 18:06 Eyes: Positive for blurry vision, Negative for vision loss. 18:06 Cardiovascular: Positive for chest pain, Negative for edema, palpitations. 18:06 : Negative for burning with urination. 18:06 Endocrine: Positive for polydipsia, polyuria. Exam: 18:06 Constitutional: This is a well developed, well nourished patient who is awake, alert, pm1 and in no acute distress. Head/Face: Normocephalic, atraumatic. 18:06 Back: No spinal tenderness. No costovertebral tenderness. Full range of motion. Skin: Warm, dry with normal turgor. Normal color with no rashes, no lesions, and no evidence of cellulitis. MS/ Extremity: Pulses equal, no cyanosis. Neurovascular intact. Full, normal range of motion. 18:06 Eyes: Exam is negative for acute changes, Pupils: no acute changes, Extraocular movements: intact throughout, Conjunctiva: no acute changes, no injection, Sclera: no acute changes, icterus, is not appreciated. 18:06 ENT: Mouth: Lips: normal, Oral mucosa: normal, pink and intact, moist. 18:06 Cardiovascular: Rate: normal, Rhythm: regular, Pulses: no pulse deficits are appreciated. 18:06 Respiratory: Exam negative for acute changes, respiratory distress, shortness of breath. 18:06 Abdomen/GI: Inspection: abdomen appears normal, Palpation: abdomen is soft and non-tender, in all quadrants. 18:06 Neuro: Exam negative for acute changes, Orientation: is normal, Mentation: is normal, Motor: is normal, moves all fours. Vital Signs: 17:12 BP 112 / 71; Pulse 74; Resp 16; Temp 97.8; Pulse Ox 100% ; Weight 78.93 kg; Height 5 ll1 ft. 9 in. (175.26 cm); Pain 0/10; 19:32 BP 99 / 71; Pulse 57; Resp 16 S; Pulse Ox 100% on R/A; ad5 20:00 BP 102 / 71; Pulse 79; Resp 16; Pulse Ox 100% ; ea 17:12 Body Mass Index 25.70 (78.93 kg, 175.26 cm) ll1 MDM: 17:21 Patient medically screened. pm1 20:05 Data reviewed: vital signs. Data interpreted: Pulse oximetry: on room air is 100 %. pm1 Interpretation: normal. 20:44 Counseling: I had a detailed discussion with the patient and/or guardian regarding: the pm1 historical points, exam findings, and any diagnostic results supporting the discharge/admit diagnosis, lab results, radiology results, the need for outpatient follow up, to return to the emergency department if symptoms worsen or persist or if there are any questions or concerns that arise at home. 02/08 17:33 Order name: Basic Metabolic Panel; Complete Time: 18:43 pm1 02/08 17:33 Order name: CBC with Diff; Complete Time: 18:43 pm1 02/08 17:33 Order name: LFT's; Complete Time: 18:43 pm1 02/08 17:33 Order name: Magnesium; Complete Time: 18:43 pm1 02/08 17:33 Order name: Troponin (emerg Dept Use Only); Complete Time: 18:43 pm1 02/08 17:33 Order name: XRAY Chest (1 view); Complete Time: 18:52 pm1 02/08 17:33 Order name: EKG; Complete Time: 17:34 pm1 02/08 17:33 Order name: Cardiac monitoring; Complete Time: 18:16 pm1 02/08 17:33 Order name: EKG - Nurse/Tech; Complete Time: 18:00 pm1 02/08 17:33 Order name: IV Saline Lock; Complete Time: 17:45 pm02/08 17:33 Order name: Labs collected and sent; Complete Time: 17:45 pm02/08 17:33 Order name: O2 Per Protocol; Complete Time: 17:45 pm02/08 17:33 Order name: O2 Sat Monitoring; Complete Time: 17:45 pm1 Administered Medications: 18:00 Drug: NS 0.9% 1000 ml Route: IV; Rate: 1000 ml; Site: right antecubital; aa5 20:48 Follow up: IV Status: Completed infusion; IV Intake: 1000ml ea 19:32 Drug: Insulin Regular Human 10 units {Co-Signature: moshe (Aiyana Tadeo RN).} Route: IVP; ad5 Site: right antecubital; 20:48 Follow up: Response: No adverse reaction; Blood sugar is lowered ea 19:32 Drug: NS 0.9% 1000 ml Route: IV; Rate: 1000 ml; Site: right antecubital; ad5 20:48 Follow up: IV Status: Completed infusion; IV Intake: 1000ml ea Disposition: 02/08/21 20:45 Discharged to Home. Impression: Hyperglycemia, unspecified. - Condition is Stable. - Discharge Instructions: Hyperglycemia, Blood Glucose Monitoring, Adult, Diabetes and Exercise. - Medication Reconciliation Form, Thank You Letter, Antibiotic Education, Prescription Opioid Use, Work release form form. - Follow up: Emergency Department; When: As needed; Reason: Worsening of condition. Follow up: Private Physician; When: 2 - 3 days; Reason: Recheck today's complaints, Continuance of care, Re-evaluation by your physician. - Problem is new. - Symptoms have improved. Signatures: Dispatcher [employer] EDMS Jenny Barclay RN RN aa5 Carlos Ruffin, KVNG NURSE PRACTITIONER PHYSICIANS ASSISTANT pm1 Aiyana Tadeo RN RN ea Lewis, Lynsay RN RN ll1 Kirt Sesay RN, ea Corrections: (The following items were deleted from the chart) 20:53 20:45 02/08/2021 20:45 Discharged to Home. Impression: Hyperglycemia, unspecified. ea Condition is Stable. Forms are Medication Reconciliation Form, Thank You Letter, Antibiotic Education, Prescription Opioid Use. Follow up: Emergency Department; When: As needed; Reason: Worsening of condition. Follow up: Private Physician; When: 2 - 3 days; Reason: Recheck today's complaints, Continuance of care, Re-evaluation by your physician. Problem is new. Symptoms have improved. pm1
[2021-02-08 22:00] VITALS: TEMP 97.8; O2SAT 100
[2021-02-08 22:08] VITALS: BP 102/71
--- NOTE | 2021-02-09 07:50 | EKG ---
Test Date: 2021-02-08 Test Time: 17:52:09 Glass Checker: ALFRED MEASUREMENT RESULTS: Intervals: Rate: 64 MA: 144 QRSD: 86 QT: 386 QTc: 398 [place]: P: 62 MA: 144 QRS: 65 T: 26 INTERPRETIVE STATEMENTS: Normal sinus rhythm Normal ECG No previous ECG available for comparison Electronically Signed On 02-09-21 07:49:00 CDT by Meir Renner
== END 2021-02-08 20:53 | disposition home or self-care (01) ==
LOC: ER 17:00
DX: E11.65 Type 2 diabetes mellitus with hyperglycemia (principal); F31.9 Bipolar disorder, unspecified; F41.9 Anxiety disorder, unspecified; Z79.4 Long term (current) use of insulin
CPT/HCPCS: 96361; 93005; 85025; 80048; 36415; 83735; 82947; 80076; 84484; 71045; 96374; 99284; J7030 ×2

== ENCOUNTER 2021-11-16 14:11 | Emergency (ER) | payer OTHER ==
--- OUTSIDE RECORDS SUMMARY | 2021-11-16 14:16 | XMS REPORT | Continuity of Care Document ---
:1980 Author Organization [facility] t Address [address] [place] [address] Care Team Providers Name Role Phone Sirena PINEDA Primary Care Physician Unavailable Allan Attending Clinician Unavailable KRISHNA Attending Clinician Unavailable IAN Attending Clinician Unavailable Krishna PEGUERO Attending Clinician Carolin ROGERS Attending Clinician Unavailable Gerhard Pickett DO Attending Clinician Doctor Unassigned, Name Attending Clinician Unavailable Emil PEGUERO, H Attending Clinician Payers Payer Name Policy Type Policy Number Effective Date Expiration Date [facility] [id number] 2020 [facility] MEDICAID 00:00:00 Advance Directives Directive Decision Effective Termination Comments Source Date Date Healthcare Agents on N/A Univ ersity FileNameRelationshipHealthcare [facility] Agent Medical RelationshipCommunicationPhyllis [facility] Care [phone] (Mobile) Problems Condition Condition Condition Status Onset Resolution Last Treating Co mments Source Name Details Category Date Date Treatment Clinician Date 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 04-20 ity of diabetes diabetes 00:00: [place] mellitus mellitus 00 Medica l with with Branch hyperglyce hyperglyce mireya mireya Dyslipidem Dyslipidem Disease Active U nivers ia ia 04-20 ity of 00:00: [place] 00 Medical Branch Vitamin D Vitamin D Disease Active Uni vers deficiency deficiency 04-20 it y of 00:00: [place] 00 [facility] Branch Urinary Urinary Disease Active Univers tract tract 8-22 it[place] of infection[place] Medical unspecifie unspecifie Br anch d d Weight Weight Disease Active Univers gain gain 8- ity of 00:00: [place] 00 Medical Branch Type 2 Type 2 Disease Active Univers diabetes diabetes 8-09 ity of mellitus mellitus 00:00: [place] without without 00 Medical complicati complicati Br anch on, on, without without long-term long-term current current use of use of insulin insulin Other Other Disease Active Univers general general 7-12 ity of counseling counseling [place] and advice and advice 00 Me dical for for Branch contracept contracept zaida zaida management management Non morbid Non morbid Disease Active U nivers obesity obesity 7-12 ity of due to due to 00:00: [place] excess excess 00 Medical calories calories Branch History of History of Disease Active Overview : Univers female female 7-12 Formattin ity of sterilizat sterilizat 00:00: g of this [place] ion ion 00 note Medical might be Branch different from the original. 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 [facility] use of use of [facility] insulin insulin l [facility] Bipolar 1 Bipolar [address] [facility] disorder disorder [facility] Type 2 Type [address] diabetes diabetes [facility] - mellitus mellitus Memori a with with l hyperglyce hyperglyce Ou tpati mireya [facility] Clinics Depression Depression Problem Active [facility] with with [facility] - anxiety anxiety Memoria l [facility] Clinics Anxiety Anxiety Problem [facility] Depression Depression Problem [facility] Diabetes Diabetes Problem Active [facility] Dietary Dietary Problem Active [facility] counseling counseling [facility] - Memoria l [facility] Obesity Obesity Problem Active [facility] (BMI (BMI [facility] - 30.0-34.9) 30.0-34.9) Me moria l [facility] Clinics History of History of Problem Active [facility] anxiety anxiety [facility] Unspecifie Unspecifie Problem Active C HI [...] administer administer l ed at ed at [facility] current current ent visit visit Clinics Dysphagia, Dysphagia, Problem Active [facility] unspecifie unspecifie [place] - d type d type Memoria l [facility] Clinics Weight Weight Problem Active [facility] loss loss [facility] ent Clinics Allergies, Adverse Reactions, Alerts Allergy Allergy Status Severity Reaction(s) Onset Inactive Treating Comm ents Source Name Type Date Date Clinician NO KNOWN Drug Active Univers ALLERGIE Class ity of S [facility] Social History Social Habit Start Date Stop Date Quantity Comments Source Exposure to Not sure [facility] SARS-CoV-2 (event) Medica l [place] Alcohol intake 2017-04-11 2017-04-11 0 /d [facility] 00:00:00 00:00:00 [facility] Sex Assigned At [birth year] [facility] [place] 00:00:00 00:00:00 [facility] Smoking Status Start Date Stop Date Source Never smoker [facility] Medications Ordered Filled Start Stop Current Ordering Indication Dosage Frequency Signature Comments Components Source Medication Medication Date Date Medication? Clinician (SIG) Name Name ERGOCALCIFE 2020-08 Yes [id number] TAKE 1 Univers ROL, 2-16 CAPSULE BY ity of VITAMIN D2, 00:00: [facility] 1,250 mcg 00 WEEKLY Medical (50,000 Branch unit) capsule liraglutide 2020-08 Yes [id number] .6mg inject Univers 0.6 mg/0.1 2-14 0.6-1.8 mg ity of mL (18 mg/3 00:00: under the [place] mL) 00 skin Medical injection daily. Branch fluconazole 2020-08 Yes [id number] 150mg Take 1 Univers 150 mg 2-14 tablet by ity of tablet 00:00: mouth every 10 Medical (ten) Branch days. ibuprofen 2020-08 Yes TAKE 1 Univer s 800 mg 0-14 TABLET BY ity of tablet 00:00: MOUTH EVERY 8 Medical HOURS Branch NEEDED omeprazole 2020-08 Yes 20mg Take 20 mg U nivers 20 mg 0-14 by mouth ity of capsule 00:00: daily. [place] Medical Branch Insulin Yes [id number] 16U inject 16 Univers Glargine 8-31 Units ity of (LANTUS 00:00: under the [place] SOLOSTAR 00 skin every Medic al U-100 morning. Branch INSULIN) E11.65 100 unit/mL (3 mL) injection insulin Yes [id number] 4U inject 4-8 Univers aspart 8-31 Units ity of U-100 00:00: under the [place] (NOVOLOG 00 skin 3 Medical FLEXPEN (three) Branch U-100 times INSULIN) daily 100 unit/mL before (3 mL) meals. injection E11.65 atorvastati Yes TAKE 1 Univ ers n 20 mg 6-29 TABLET BY ity of tablet 00:00: MOUTH EVERY Medical NIGHT Branch Pen Viking Pen Viking 2018-08 [address] [facility] 0-16 [place] directed [facility] - 00:[facility]: [facility] 00 Outpati ent Clinics Metformin Metformin Yes Marly [address] [facility] HCl HCl 6-26 [place] with a [facility] - 00:00: meal Memoria 00 l Outpati ent Clinics Pen Viking Pen Viking Yes Marly as [facility] 6-25 [place] directed [facility] - 00:00: [facility]oria 00 l Outpati ent Clinics Lantus Lantus Yes Marly [address] [facility] [address] SoloStar SoloStar 6-25 [place] Nicci kes - 00:00: Memoria 00 l Outpati ent Clinics blood sugar Yes [id number] Check up Univers diagnostic 8-09 to 3 times ity of (FREESTYLE 00:00: daily [place] LITE 00 Medical STRIPS) Branch strip Blood-Gluco Yes [id number] Use as Univers se Meter 03-29 directed ity of (FREESTYLE 00:00: [place] LITE METER) [address] [place] [address] lancets 33 2016-0 Yes [id number] Use up to Univers gauge Misc 03-29 3 times ity of 00:00: daily [address] Lantus Lantus Yes Marly [address] Millender [facility] Sertraline Sertraline Yes Marly [address] HCl HCl [place] (to be [facility] - taken with Memoria Zoloft 25 l mg) [facility] Sertraline Sertraline Yes Marly [address] HCl HCl [place] (to be [facility] - taken with Memoria Zoloft 50 l mg) [facility] Immunizations Ordered Filled Immunization Date Status Comments [facility] e Immunization Name Name Influenza Virus 2019-06-05 Completed Universit y of Vaccine 00:00:00 [facility] [place] [facility] Flucelvax - single Flucelvax - single 2019-06-[address] [facility] - dose syringe dose syringe 00:00:00 [facility] TDAP (ADACEL) 2010-10-30 Completed University of VACCINE 00:00:00 [facility] [place] [facility] Procedures This patient has no known procedures. Encounters Start End Encounter Admission Attending Care Care Encounter Source Date/Time Date/Time Type Type Clinicians Facility Department ID 2021-09-15 Outpatient OZ Lemus [facility] [id number] 11:08:43 Marly [id number] [facility] 2021-09-[address] AllanYONATHAN [facility] [id number] 11:07:41 Marly [id number] [facility] [id number] 11:06:19 Marly [id number] [facility] 2021-09-15 Outpatient OZ Lemus [facility] [id number] 11:02:49 Marly [id number] [facility] 2021-09-[address] [id number] 11:01:11 Marly [id number] [facility] 2021-09-15 [id number] 11:[facility]:53 Marly [id number] Amelia Vega l Outpati ent Clinics 2021-12-14 2021-12-14 Outpatient R KRISHNA [facility] [id number] Univers 15:00:00 15:00:00 DONALD [id number] ity [facility] 2021-11-16 2021-11-16 Outpatient R [facility] [id number] Univers 20:00:00 20:00:00 [id number] ity [facility] 2021-11-16 2021-11-[address] [id number] Univers 20:00:00 20:00:00 RONN [facility] 2021-08-10 2021-08-10 Patient Krishna [facility] [id number] Univers 00:00:00 00:00:00 Secure Msg Donald [id number] [facility] [id number] [facility] [place] [facility] [id number] [facility] trent AND PAK 220 Branch DIABETES [facility]IC 2020-12-22 2020-12-22 Case Mary Jo Coe [id number] 00:00:00 00:00:00 Management Sheree Srivastava [id number] [place] [id number] 2020-11-09 2020-11-09 Patient Piyush OHGUSTAVO [id number] 00:00:00 00:00:00 Outreach Osiel PRIMARY [id number] [facility] [id number] ANNMARIE [id number] 2020-06-24 2020-06-24 Orders Doctor NAVIN [id number] 00:00:00 00:00:00 Only Unassigned, BELINDA [id number] [facility] [id number] 2020-06-23 2020-06-23 Telephone Emil OHGUSTAVO [id number] 00:00:00 00:00:00 [place] [id number] [place] [id number] Professio [phone] [facility] 220 Building 2020-01-17 2020-01-17 [facility] [id number] 08:15:28 08:45:28 ne Visit Avila Vallejo [id number] [place] [id number] Professio [phone] [facility] 220 Building 2019-11-18 2019-11-18 [facility] [id number] 16:14:00 16:14:00 [facility] Clin[facility] 2019-10-15 2019-11-08 Office Phillip, [facility] [id number] 09:36:18 14:53:14 Visit Donald Vallejo [id number] [place] [id number] Professio [phone] [facility] 220 [facility] 2019-07-09 2019-07-09 [facility] [id number] 02:50:00 02:50:00 [facility] Medicine [facility] Clin[facility] 2019-06-05 2019-06-05 [facility] [id number] 08:20:00 08:20:00 [facility] Medicine Outpati ent Clinics 2018-03-14 2018-03-14 [facility] [id number] 23:06:00 23:06:00 [facility] Medicine Outpati ent Clinics 2018-03-14 2018-03-14 [facility] [id number] 13:15:00 13:15:00 [facility] Medicine Outpati ent Clinics 2018-02-22 2018-02-22 [facility] [id number] 15:14:00 15:14:00 t [facility] Medicine Outpati ent Clinics 2018-02-13 2018-02-13 [facility] [id number] 11:01:00 11:01:00 t [facility] Medicine Outpati ent Clinics 2018-02-13 2018-02-13 [facility] [id number] 01:15:00 01:15:00 t [facility] Medicine Outpati ent Clinics 2018-02-12 2018-02-12 [facility] [id number] 11:15:00 11:15:00 t [facility] Medicine Outpati ent Clinics 2018-01-16 2018-01-16 [facility] [id number] 23:01:00 23:01:00 t [facility] Medicine Outpati ent Clinics 2018-01-16 2018-01-16 [facility] [id number] 15:00:00 15:00:00 t [facility] Medicine Outpati ent Clinics Results This patient has no known results.
--- NOTE | 2021-11-16 15:37 | ER ---
Nurse's Notes [facility] Name: Eduin Montgomery Age: 41 yrs Sex: Female : 1980 Arrival Date: 11/16/2021 Time: 14:28 Bed Waiting Private MD: Diagnosis: Presentation: 11/16 14:34 Chief complaint: Patient states: NEAR-SYNCOPE WHILE DRIVING, REMAINS LIGHT-HEADED. bp Coronavirus screen: At this time, the client does not indicate any symptoms associated with coronavirus-19. Ebola Screen: No symptoms or risks identified at this time. Initial Sepsis Screen: Does the patient meet any 2 criteria? No. Patient's initial sepsis screen is negative. Does the patient have a suspected source of infection? No. Patient's initial sepsis screen is negative. Risk Assessment: Do you want to hurt yourself or someone else? Patient reports no desire to harm self or others. Note BGL 225 AT TRIAGE. Onset of symptoms was November 16, 2021 at 12:00. 14:34 Method Of Arrival: Ambulatory bp 14:34 Acuity: RUBY 3 bp Triage Assessment: 14:37 General: Appears distressed, Behavior is cooperative, appropriate for age, anxious. bp Pain: Denies pain. EENT: No deficits noted. Neuro: Level of Consciousness is awake, alert, obeys commands, Oriented to Appropriate for age Gait is steady. Cardiovascular: No deficits noted. Respiratory: Reports shortness of breath Onset: The symptoms/episode began/occurred today, the patient reports symptoms have resolved. GI: No signs and/or symptoms were reported involving the gastrointestinal system. : No signs and/or symptoms were reported regarding the genitourinary system. Derm: No deficits noted. Musculoskeletal: No deficits noted. Historical: - Allergies: 14:36 NKA; bp - Home Meds: 14:36 Lantus Sub-Q [Active]; Novolog U-100 Insulin aspart 100 unit/mL Sub-Q soln [Active]; bp - PMHx: 14:36 Diabetes - IDDM; Anxiety; Bipolar disorder; Depression; bp - PSHx: 14:36 None; bp - Immunization history:: Client reports having NOT received the Covid vaccine. - Social history:: Smoking status: Reported history of juuling and/or vaping. Assessment: 15:00 Reassessment: Called to exam room, no answer. Unable to locate patient from [facility]. ss 15:15 Reassessment: Called patient again to triage, no answer. Unable to locate patient. ss 15:35 Reassessment: Unable to locate patient. Vital Signs: 14:34 BP 108 / 76; Pulse 70; Resp 16; Temp 97; Pulse Ox 100% ; Weight 81.65 kg; Height 5 ft. bp 9 in. (175.26 cm); 14:34 Body Mass Index 26.58 (81.65 kg, 175.26 cm) bp ED Course: 14:28 Patient arrived in ED. ds1 14:36 Triage completed. bp 14:36 Arm band placed on. bp Administered Medications: No medications were administered Point of Care Testing: Blood Glucose: 14:37 Blood Glucose: 225 mg/dL; bp Ranges: Outcome: 15:36 Eloped from waiting room, before seeing physician 15:36 Patient left the ED. ss Signatures: Stacy Moody ds1 Kelly Renae RN RN Timmy Huertas RN RN bp Corrections: (The following items were deleted from the chart) 14:37 14:36 PMHx: Diabetes - NIDDM; bp bp
[2021-11-16 15:52] VITALS: BP 108/76; TEMP 97; O2SAT 100
== END 2021-11-16 15:36 | disposition left against medical advice (07) ==
LOC: ER 14:11
DX: Z53.21 Procedure and treatment not carried out due to patient leaving prior to being seen by health care provider (principal)
CPT/HCPCS: 82947; 99281

== ENCOUNTER 2022-08-15 16:17 | Emergency (ER) | payer OTHER ==
--- OUTSIDE RECORDS SUMMARY | 2022-08-15 16:33 | XMS REPORT | Continuity of Care Document ---
:1980 Author Organization [facility] t Address [address] [place] [address] Care Team Providers Name Role Phone ALANNA PINEDA Primary Care Physician Unavailable Marly Lemus Attending Clinician Unavailable NOAH MACIAS Attending Clinician Unavailable NOAH MACIAS Attending Clinician Unavailable Donald Keller MD Attending Clinician DONALD KELLER Attending Clinician Unavailable Doctor Unassigned, [place] Attending Clinician Unavailable Alanna Ascencio Attending Clinician [phone] ALANNA PINEDA Attending Clinician Unavailable GABRIELLA WYNN Attending Clinician Unavailable Gabriella Wynn MD Attending Clinician [facility] Attending Clinician Unavailable Jn Robles Attending Clinician JN ZAMORA Attending Clinician Unavailable RONN SOSA Attending Clinician Unavailable Lab, Ang - Db Attending Clinician Unavailable LISA MOODY Attending Clinician Unavailable Sheree Coe MA Attending Clinician Unavailable Osiel Pickett DO Attending Clinician Avila Brizuela MD Attending Clinician AVILA BRIZUELA Attending Clinician Unavailable Payers Payer Name Policy Type Policy Number Effective Date Expiration Date S Formerly [facility], [facility] [id number] 2020 [place] [id number] 2019 HEALTH 00:00:00 Problems Condition Condition Condition Status Onset Resolution Last Treating Co mments Source Name Details Category Date Date Treatment Clinician Date 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 8 ity of diabetes diabetes 00:00: [place] mellitus mellitus 00 Medica l with with Branch hyperglyce hyperglyce mireya mireya Dyslipidem Dyslipidem Disease Active U nivers ia ia 04-20 ity of 00:00: [place] [facility] Vitamin D Vitamin D Disease Active Uni vers deficiency deficiency 04-20 it y of 00:00: [place] [facility] Urinary Urinary Disease Active Univers tract tract 8- ity of infection[place], [place] 00 Medical unspecifie unspecifie Br anch d d Weight Weight Disease Active Univers gain gain 8 ity of 00:00: [place] 00 Medical Branch Type 2 Type 2 Disease Active Univers diabetes diabetes 8 ity of mellitus mellitus 00:00: [place] without without 00 Medical complicati complicati Br anch on, on, without without long-term long-term current current use of use of insulin insulin Other Other Disease Active Univers general general 7-12 ity of counseling counseling [place] and advice and advice 00 Nm dical for for Branch contracept contracept zaida zaida management management Non morbid Non morbid Disease Active U nivers obesity obesity 7-12 ity of due to due to 00:00: [place] excess excess 00 Medical calories calories Branch History of History of Disease Active Overview : Univers female female 7-12 Formattin ity of sterilizat sterilizat 00:00: g of this [place] ion ion 00 note Medical might be Branch different from the original. ESSURE 2013 Skin yeast Skin yeast Disease Active U nivers infection infection 7-12 ity of 00:00: [place] 00 Medical Branch Type 2 Type 2 Disease Active Univers diabetes diabetes 5-11 ity of mellitus mellitus 00:00: [place] without without 00 Medical complicati complicati Br anch on on shelter shelter Problem Active Com mon current current Spirit use of use of - [facility] insulin insulin [facility] Bipolar 1 Bipolar 1 Problem Active Com mon disorder disorder Spirit - [facility] Type 2 Type 2 Problem Active Common diabetes diabetes Spirit mellitus mellitus - [facility] with with St hyperglyce hyperglyce [facility] Depression Depression Problem Active C ommon with with Spirit anxiety anxiety [facility] Anxiety Anxiety Problem Active Common [facility] Depression Depression Problem Active C ommon Spirit [facility] Diabetes Diabetes Problem Active Commo n [facility] Dietary Dietary Problem Active Common counseling counseling Sp bruno - [facility] Obesity Obesity Problem Active Common (BMI (BMI Spirit 30.0-34.9) 30.0-34.9) [facility] History of History of Problem Active C ommon anxiety anxiety [facility] Unspecifie Unspecifie Problem Active C ommon d lump in d lump in Spir it the right the right - [facility] I breast, breast, St unspecifie unspecifie [facility] quadrant d quadrant [facility] Unspecifie Unspecifie Problem Active C ommon d lump in d lump in Spir it the left the left - [facility] breast, breast, St unspecifie unspecifie Nicci kes d quadrant d quadrant Me dical Center Influenza Influenza Problem Active Com mon vaccinatio vaccinatio Sp bruno n n [facility] administer administer [facility] ed at ed [facility] current current Medical visit visit Center Dysphagia, Dysphagia, Problem Active C ommon unspecifie unspecifie Sp bruno d type d type - [facility] Weight Weight Problem Active Common loss loss [facility] Allergies, Adverse Reactions, Alerts Allergy Allergy Status Severity Reaction(s) Onset Inactive Treating Comm ents Source Name Type Date Date Clinician NO KNOWN Drug Active Univers ALLERGIE Class ity of S [facility] Social History Social Habit Start Date Stop Date Quantity Comments Source History of Current smoker University of tobacco use [facility] Alcohol intake 2022-01-24 2022-01-24 0 /d University of 00:00:00 00:00:00 [facility] Tobacco use and 2021-11-16 2021-11-16 Smokeless tobacco Un iversity of exposure 00:00:00 00:00:00 non-user [facility] Sex Assigned At [birth year] Universit y of 00:00:00 00:00:00 [facility] Smoking Status Start Date Stop Date Source Ex-smoker 2021-11-16 00:00:00 2021-11-16 00:00:00 [facility] Medications Ordered Filled Start Stop Current Ordering Indication Dosage Frequency Signature Comments Components Source Medication Medication Date Date Medication? Clinician (SIG) Name Name insulin Yes [id number] ADMINISTER Univers aspart 9-14 4 TO 8 ity of U-100 00:00: UNITS [place] (NOVOLOG 00 UNDER THE Medica l FLEXPEN SKIN THREE Branch U-100 TIMES INSULIN) DAILY 100 unit/mL BEFORE (3 mL) MEALS injection insulin Yes [id number] ADMINISTER Univers aspart 9-14 4 TO 8 ity of U-100 00:00: UNITS [place] (NOVOLOG 00 UNDER THE Medica l FLEXPEN SKIN THREE Branch U-100 TIMES INSULIN) DAILY 100 unit/mL BEFORE (3 mL) MEALS injection TERBINAFINE No TAB 250MG 8-15 00:00: 00 TERBINAFINE 2021-0 No TAB 250MG 8-15 00:00: 00 TERBINAFINE 2021-0 No TAB 250MG 8-15 00:00: 00 &lt 2-0 No 8-11 00:00: 00 &lt 2021-0 No 150 8-11 00:00: 00 &lt 2022-0 No 8-11 00:00: 00 &lt 2-0 No 150 8-11 00:00: 00 &lt 2021-0 No 8-11 00:00: 00 &lt 2-0 No 150 8-11 00:00: 00 flash 2021-0 Yes 1{each} 1 Each Univers glucose 8-09 CONTINUOUS ity of sensor 00:00: . Use as [place] (FREESTYLE 00 directed Medic al JENNIFER 14 E11.65 Branch DAY SENSOR) Kit flash 0 Yes 1{each} 1 Each Univers glucose 8-09 CONTINUOUS ity of sensor 00:00: . Use as [place] (FREESTYLE 00 directed Medic al JENNIFER 14 E11.65 Branch DAY SENSOR) Kit flash Yes 1{each} 1 Each Univers glucose 8-09 SEE-INSTRU ity of scanning 00:00: CTIONS. [place] reader 00 Medical (FREESTYLE Branch JENNIFER 2 READER) Misc flash Yes 1{each} 1 Each Univers glucose 8-09 CONTINUOUS ity of sensor 00:00: . Use as [place] (FREESTYLE 00 directed Medic al JENNIFER 14 E11.65 Branch DAY SENSOR) Kit flash 2021-0 Yes 1{each} 1 Each Univers glucose 8-09 SEE-INSTRU ity of scanning 00:00: CTIONS. [place] reader 00 Medical (FREESTYLE Branch JENNIFER 2 READER) Mis Blood-Gluco 2021-0 Yes [id number] Use as Univers se Meter 8-08 directed ity of (FREESTYLE 00:00: for [place] LITE METER) 00 E11.65. Medic al Kit Patient Branch needs replacemen t reader Blood-Gluco 2021-0 Yes [id number] Use as Univers se Meter 8-08 directed ity of (FREESTYLE 00:00: for [place] LITE METER) 00 E11.65. Medic al Kit Patient Branch needs replacemen t reader Blood-Gluco 2021-0 Yes [id number] Use as Univers se Meter 8-08 directed ity of (FREESTYLE 00:00: for [place] LITE METER) 00 E11.65. Medic al Kit Patient Branch needs replacemen t reader venlafaxine 2021-0 No 1mg ER 37.5 mg 7-21 tablet,exte 00:00: nded 00 release 24 hr venlafaxine 2021-0 No 1mg ER 37.5 mg 7-21 tablet,exte 00:00: nded 00 release 24 hr venlafaxine 2021-0 No 1mg ER 37.5 mg 7-21 tablet,exte 00:00: nded 00 release 24 hr &lt 2-0 No 250 7-11 00:00: 00 &lt 2022-0 No 250 7-11 00:00: 00 &lt 2022-0 No 250 7-11 00:00: 00 &lt 2022-0 No 7-05 00:00: 00 &lt 2022-0 No 7-05 00:00: 00 &lt 2022-0 No 7-05 00:00: 00 ibuprofen 2-0 No 1mg 800 mg 6-13 tablet 00:00: 00 Dose 2-0 No Unknown 6-13 00:00: 00 &lt 2022-0 No 6-13 00:00: 00 &lt 2022-0 No 6-13 00:00: 00 ADMINISTER 2022-0 No 16 UNITS 6-13 UNDER THE 00:00: SKIN EVERY 00 MORNING &lt 2022-0 No 6-13 00:00: 00 TAKE 1 2-0 No TABLET BY 6-13 MOUTH EVERY 00:00: 6 HOURS 00 NEEDED FOR SEVERE PAIN OR ACUTE PAIN TAKE 1 2-0 No TABLET BY 6-13 MOUTH EVERY 00:00: 6 HOURS 00 NEEDED FOR SEVERE PAIN OR ACUTE PAIN INJECT PER 2-0 No SLIDING 6-13 SCALE BELOW 00:00: THE SKIN 00 THREE TIMES DAILY BEFORE MEALS DIRECTED. MAX DAILY DOSE OF 45 UNITS. ibuprofen 2021-0 No 1mg 800 mg 6-13 tablet 00:00: 00 Dose 2-0 No Unknown 6-13 00:00: 00 &lt 2022-0 No 6-13 00:00: 00 &lt 2022-0 No 6-13 00:00: 00 ADMINISTER 2-0 No 16 UNITS 6-13 UNDER THE 00:00: SKIN EVERY 00 MORNING &lt 2022-0 No 6-13 00:00: 00 TAKE 1 2021-0 No TABLET BY 6-13 MOUTH EVERY 00:00: 6 HOURS 00 NEEDED FOR SEVERE PAIN OR ACUTE PAIN TAKE 1 2021-0 No TABLET BY 6-13 MOUTH EVERY 00:00: 6 HOURS 00 NEEDED FOR SEVERE PAIN OR ACUTE PAIN INJECT PER 2021-0 No SLIDING 6-13 SCALE BELOW 00:00: THE SKIN 00 THREE TIMES DAILY BEFORE MEALS DIRECTED. MAX DAILY DOSE OF 45 UNITS. ibuprofen 2-0 No 1mg 800 mg 6-13 tablet 00:00: 00 Dose 2022-0 No Unknown 6-13 00:00: 00 &lt 2022-0 No 6-13 00:00: 00 &lt 2022-0 No 6-13 00:00: 00 ADMINISTER 2022-0 No 16 UNITS 6-13 UNDER THE 00:00: SKIN EVERY 00 MORNING &lt 2022-0 No 6-13 00:00: 00 TAKE 1 2-0 No TABLET BY 6-13 MOUTH EVERY 00:00: 6 HOURS 00 NEEDED FOR SEVERE PAIN OR ACUTE PAIN TAKE 1 2021-0 No TABLET BY 6-13 MOUTH EVERY 00:00: 6 HOURS 00 NEEDED FOR SEVERE PAIN OR ACUTE PAIN INJECT PER 2021-0 No SLIDING 6-13 SCALE BELOW 00:00: THE SKIN 00 THREE TIMES DAILY BEFORE MEALS DIRECTED. MAX DAILY DOSE OF 45 UNITS. flash Yes [id number] 1{kit} 1 Kit Univ ers glucose 4-26 every 14 ity of sensor 00:00: (fourteen) [place] (FREESTYLE 00 days. Medical JENNIFER 2 E11.65 Branch SENSOR) Kit insulin 2021- Yes [id number] 4U inject 4-8 Univers aspart 4-26 Units ity of U-100 00:00: under the [place] (NOVOLOG 00 skin 3 Medical FLEXPEN (three) Branch U-100 times INSULIN) daily 100 unit/mL before (3 mL) meals. injection E11.65 Insulin 0 Yes [id number] 18U inject 18 Univers Glargine 4-26 Units ity of (LANTUS 00:00: under the [place] SOLOSTAR 00 skin every Medic al U-100 morning. Branch INSULIN) E11.65 100 unit/mL (3 mL) injection flash Yes [id number] 1{kit} 1 Kit Univ ers glucose 4-26 every 14 ity of sensor 00:00: (fourteen) [place] (FREESTYLE 00 days. Medical JENNIFER 2 E11.65 Branch SENSOR) Kit Insulin Yes [id number] 18U inject 18 Univers Glargine 4-26 Units ity of (LANTUS 00:00: under the [place] SOLOSTAR 00 skin every Medic al U-100 morning. Branch INSULIN) E11.65 100 unit/mL (3 mL) injection flash 2021- Yes [id number] 1{kit} 1 Kit Univ ers glucose 4-26 every 14 ity of sensor 00:00: (fourteen) [place] (FREESTYLE 00 days. Medical JENNIFER 2 E11.65 Branch SENSOR) Kit Insulin Yes [id number] 18U inject 18 Univers Glargine 4-26 Units ity of (LANTUS 00:00: under the [place] SOLOSTAR 00 skin every Medic al U-100 morning. Branch INSULIN) E11.65 100 unit/mL (3 mL) injection insulin 2021- No [id number] 4U inject 4-8 Univers aspart 4-26 09-14 Units ity of U-100 00:00: 00:00 under the [place] (NOVOLOG 00 :00 skin 3 Medical FLEXPEN (three) Branch U-100 times INSULIN) daily 100 unit/mL before (3 mL) meals. injection E11.65 ibuprofen 1-1 No 1mg 800 mg 0-14 tablet 00:00: 00 omeprazole 1-1 No 1mg 20 mg 0-14 capsule,del 00:00: ayed 00 release ibuprofen 1-1 No 1mg 800 mg 0-14 tablet 00:00: 00 omeprazole 1-1 No 1mg 20 mg 0-14 capsule,del 00:00: ayed 00 release ibuprofen 1-1 No 1mg 800 mg 0-14 tablet 00:00: 00 omeprazole 1-1 No 1mg 20 mg 0-14 capsule,del 00:00: ayed 00 release Novolog 1-0 No 1(3 mL) Flexpen 9-23 U-100 00:00: Insulin 00 aspart 100 unit/mL (3 mL) subcutaneou s Diflucan 1-0 No 1mg 150 mg 9-23 tablet 00:00: 00 Novolog 1-0 No 1(3 mL) Flexpen 9-23 U-100 00:00: Insulin 00 aspart 100 unit/mL (3 mL) subcutaneou s Diflucan 1-0 No 1mg 150 mg 9-23 tablet 00:00: 00 Novolog 1-0 No 1(3 mL) Flexpen 9-23 U-100 00:00: Insulin 00 aspart 100 unit/mL (3 mL) subcutaneou s Diflucan 1-0 No 1mg 150 mg 9-23 tablet 00:00: 00 Novolin R 2021-0 No unit/mL Regular 7-15 U-100 00:00: Insulin 100 00 unit/mL injection solution Novolin R 2021-0 No unit/mL Regular 7-15 U-100 00:00: Insulin 100 00 unit/mL injection solution Novolin R 2021-0 No unit/mL Regular 7-15 U-100 00:00: Insulin 100 00 unit/mL injection solution Novolin R 2021-0 No unit/mL Regular 7-10 U-100 00:00: Insulin 100 00 unit/mL injection solution Lantus 2021-0 No (3 mL) Solostar 7-10 U-100 00:00: Insulin 100 00 unit/mL (3 mL) subcutaneou s pen Novolin R 2020-0 No unit/mL Regular 7-10 U-100 00:00: Insulin 100 00 unit/mL injection solution Lantus 2020-0 No (3 mL) Solostar 7-10 U-100 00:00: Insulin 100 00 unit/mL (3 mL) subcutaneou s pen Novolin R 2020-0 No unit/mL Regular 7-10 U-100 00:00: Insulin 100 00 unit/mL injection solution Lantus 2020-0 No (3 mL) Solostar 7-10 U-100 00:00: Insulin 100 00 unit/mL (3 mL) subcutaneou s pen terbinafine 2020-0 No 1mg HCl 250 mg 7-05 tablet 00:00: 00 Diflucan 1-0 No 1mg 150 mg 7-05 tablet 00:00: 00 terbinafine 1-0 No 1mg HCl 250 mg 7-05 tablet 00:00: 00 Diflucan 1-0 No 1mg 150 mg 7-05 tablet 00:00: 00 terbinafine 1-0 No 1mg HCl 250 mg 7-05 tablet 00:00: 00 Diflucan 1-0 No 1mg 150 mg 7-05 tablet 00:00: 00 atorvastati 2020-0 Yes TAKE 1 Univ ers n 20 mg 6-29 TABLET BY ity of tablet 00:00: MOUTH [place] EVERY Medical NIGHT Branch atorvastati 2020-0 Yes TAKE 1 Univ ers n 20 mg 6-29 TABLET BY ity of tablet 00:00: MOUTH [place] EVERY Medical NIGHT Branch atorvastati 2020-0 Yes TAKE 1 Univ ers n 20 mg 6-29 TABLET BY ity of tablet 00:00: MOUTH [place] EVERY Medical NIGHT Branch atorvastati 2020-0 No 1mg n 20 mg 6-29 tablet 00:00: 00 Vitamin D2 1-0 No 1(50,00 1,250 mcg 6-29 0 unit) (50,000 00:00: unit) 00 capsule atorvastati 2020-0 No 1mg n 20 mg 6-29 tablet 00:00: 00 Vitamin D2 1-0 No 1(50,00 1,250 mcg 6-29 0 unit) (50,000 00:00: unit) 00 capsule atorvastati 0 No 1mg n 20 mg 6-29 tablet 00:00: 00 Vitamin D2 2020-0 No 1(50,00 1,250 mcg 6-29 0 unit) (50,000 00:00: unit) 00 capsule Bydureon 2020-0 No 2mg/0.8 BCise 2 6-25 5 mL mg/0.85 mL 00:00: subcutaneou 00 s auto-inject or Lantus 2020-0 No 12(3 Solostar 6-25 mL) U-100 00:00: Insulin 100 00 unit/mL (3 mL) subcutaneou s pen Bydureon 2020-0 No 2mg/0.8 BCise 2 6-25 5 mL mg/0.85 mL 00:00: subcutaneou 00 s auto-inject or Lantus 2020-0 No 12(3 Solostar 6-25 mL) U-100 00:00: Insulin 100 00 unit/mL (3 mL) subcutaneou s pen Bydureon 2020-0 No 2mg/0.8 BCise 2 6-25 5 mL mg/0.85 mL 00:00: subcutaneou 00 s auto-inject or Lantus 2020-0 No 12(3 Solostar 6-25 mL) U-100 00:00: Insulin 100 00 unit/mL (3 mL) subcutaneou s pen Bromfed DM 2019-0 No 10mg/5 2 mg-30 7-09 mL mg-10 mg/5 00:00: mL oral 00 syrup Bromfed DM 2019-0 No 10mg/5 2 mg-30 7-09 mL mg-10 mg/5 00:00: mL oral 00 syrup Bromfed DM 2020-0 No 10mg/5 2 mg-30 7-09 mL mg-10 mg/5 00:00: mL oral 00 syrup Bydureon 2 2019-0 No 1mg/0.6 mg/0.65 mL 6-03 5 mL subcutaneou 00:00: s pen 00 injector Lantus 2019-0 No 10(3 Solostar 6-03 mL) U-100 00:00: Insulin 100 00 unit/mL (3 mL) subcutaneou s pen metformin 2019-0 No 1mg ER 1,000 mg 6-03 24 hr 00:00: tablet,exte 00 nded release (gastric) metformin 2020-0 No 1mg 1,000 mg 6-03 tablet 00:00: 00 metformin 2020-0 No 2mg 1,000 mg 6-03 tablet 00:00: 00 Bydureon 2 2020-0 No 1mg/0.6 mg/0.65 mL 6-03 5 mL subcutaneou 00:00: s pen 00 injector Lantus 2020-0 No 10(3 Solostar 6-03 mL) U-100 00:00: Insulin 100 00 unit/mL (3 mL) subcutaneou s pen metformin 2020-0 No 1mg ER 1,000 mg 6-03 24 hr 00:00: tablet,exte 00 nded release (gastric) Bydureon 2 2020-0 No 1mg/0.6 mg/0.65 mL 6-03 5 mL subcutaneou 00:00: s pen 00 injector Lantus 2020-0 No 10(3 Solostar 6-03 mL) U-100 00:00: Insulin 100 00 unit/mL (3 mL) subcutaneou s pen metformin 2020-0 No 1mg ER 1,000 mg 6-03 24 hr 00:00: tablet,exte 00 nded release (gastric) metformin 2020-0 No 1mg 1,000 mg 6-03 tablet 00:00: 00 metformin 2020-0 No 2mg 1,000 mg 6-03 tablet 00:00: 00 metformin 2020-0 No 1mg 1,000 mg 6-03 tablet 00:00: 00 metformin 2020-0 No 2mg 1,000 mg 6-03 tablet 00:00: 00 Pen [place] Pen [place] 2018-1 Yes Marly as Common 0-16 [place] directed Spirit 00:00: - [facility] 00 [facility] Zoloft 25 2018-1 No 1mg mg tablet 0-03 00:00: 00 Zoloft 25 2018-1 No 1mg mg tablet 0-03 00:00: 00 Zoloft 25 2018-1 No 1mg mg tablet 0-03 00:00: 00 Lantus 2018-0 No 10(3 Solostar 7-12 mL) U-100 00:00: Insulin 100 00 unit/mL (3 mL) subcutaneou s pen metformin 2018-0 No 1mg ER 1,000 mg 7-12 tablet,exte 00:00: nded 00 release 24hr (osmotic) Zoloft 50 2018-0 No 1mg mg tablet 7-12 00:00: 00 Zoloft 25 2018-0 No 1mg mg tablet 712 00:00: 00 Lantus 2018-0 No 10(3 Solostar 7-12 mL) U-100 00:00: Insulin 100 00 unit/mL (3 mL) subcutaneou s pen metformin 2018-0 No 1mg ER 1,000 mg 7-12 tablet,exte 00:00: nded 00 release 24hr (osmotic) Zoloft 50 2018-0 No 1mg mg tablet 7 00:00: 00 Zoloft 25 2018-0 No 1mg mg tablet 712 00:00: 00 Lantus 2018-0 No 10(3 Solostar 7-12 mL) U-100 00:00: Insulin 100 00 unit/mL (3 mL) subcutaneou s pen metformin 2018-0 No 1mg ER 1,000 mg 7-12 tablet,exte 00:00: nded 00 release 24hr (osmotic) Zoloft 50 2018-0 No 1mg mg tablet 7 00:00: 00 Zoloft 25 2018-0 No 1mg mg tablet 7 00:00: 00 Metformin Metformin 2018-0 Yes Marly 1 tablet Common HCl HCl 6-26 [place] with a Spirit 00:00: meal - [facility] Pen [place] Pen [place] 2017-0 Yes Marly as Common 6-25 [place] directed Spirit 00:00: - [facility] Lantus Lantus 2018-0 Yes Marly 10 units Comm on SoloStar SoloStar 6-25 [place] Sp bruno 00:00: - [facility] Zoloft 50 2018-0 No 1mg mg tablet 11-29 00:00: 00 Zoloft 50 2018-0 No 1mg mg tablet 11-29 00:00: 00 Zoloft 50 2018-0 No 1mg mg tablet 11-29 00:00: 00 Zoloft 50 2018-0 No 1mg mg tablet 10-18 00:00: 00 Zoloft 50 2018-0 No 1mg mg tablet 10-18 00:00: 00 Zoloft 50 2018-0 No 1mg mg tablet 2- 00:00: 00 Zoloft 50 2018-0 No 1mg mg tablet 2- 00:00: 00 Zoloft 50 2018-0 No 1mg mg tablet 2- 00:00: 00 Zoloft 50 2018-0 No 1mg mg tablet 2- 00:00: 00 Zoloft 50 2018-0 No 1mg mg tablet 1- 00:00: 00 Zoloft 50 2018-0 No 1mg mg tablet 1- 00:00: 00 Zoloft 50 2018-0 No 1mg mg tablet 1- 00:00: 00 citalopram 2017-1 No 1mg 20 mg 1-29 tablet 00:00: 00 trazodone 2017-1 No 23mg 100 mg 1-29 tablet 00:00: 00 citalopram 2017-1 No 1mg 20 mg 1-29 tablet 00:00: 00 trazodone 2017-1 No 23mg 100 mg 1-29 tablet 00:00: 00 citalopram 2017-1 No 1mg 20 mg 1-29 tablet 00:00: 00 trazodone 2017-1 No 23mg 100 mg 1-29 tablet 00:00: 00 citalopram 2017-1 No 1mg 20 mg 1-14 tablet 00:00: 00 trazodone 2017-1 No 23mg 100 mg 1-14 tablet 00:00: 00 citalopram 2017-1 No 1mg 20 mg 1-14 tablet 00:00: 00 trazodone 2017-1 No 23mg 100 mg 1-14 tablet 00:00: 00 citalopram 2017-1 No 1mg 20 mg 1-14 tablet 00:00: 00 trazodone 2017-1 No 23mg 100 mg 1-14 tablet 00:00: 00 citalopram 2017-0 No 1mg 20 mg 8-23 tablet 00:00: 00 trazodone 2017-0 No 23mg 100 mg 8-23 tablet 00:00: 00 citalopram 2017-0 No 1mg 20 mg 8-23 tablet 00:00: 00 trazodone 2017-0 No 23mg 100 mg 8-23 tablet 00:00: 00 citalopram 2017-0 No 1mg 20 mg 8-23 tablet 00:00: 00 trazodone 2017-0 No 23mg 100 mg 8-23 tablet 00:00: 00 blood sugar 2017-0 Yes [id number] Check up Univers diagnostic 8-09 to 3 times ity of (FREESTYLE 00:00: daily [place] LITE 00 Medical STRIPS) Branch strip lancets 33 0 Yes [id number] Use up to Univers gauge Misc 8-09 3 times ity of 00:00: daily Medical Branch blood sugar 2017-0 Yes [id number] Check up Univers diagnostic 809 to 3 times ity of (FREESTYLE 00:00: daily [place] LITE 00 Medical STRIPS) Branch strip lancets 33 Yes [id number] Use up to Univers gauge Misc 8-09 3 times ity of 00:00: daily Medical Branch blood sugar 2017-0 Yes [id number] Check up Univers diagnostic 809 to 3 times ity of (FREESTYLE 00:00: daily [place] LITE 00 Medical STRIPS) Branch strip lancets 33 Yes [id number] Use up to Univers gauge Misc 8-09 3 times ity of 00:00: daily Medical Branch citalopram 2017-0 No 1mg 20 mg 8-07 tablet 00:00: 00 trazodone 2017-0 No 12mg 100 mg 8-07 tablet 00:00: 00 citalopram 2017-0 No 1mg 20 mg 8-07 tablet 00:00: 00 trazodone 2017-0 No 12mg 100 mg 8-07 tablet 00:00: 00 citalopram 2017-0 No 1mg 20 mg 8-07 tablet 00:00: 00 trazodone 2017-0 No 12mg 100 mg 8-07 tablet 00:00: 00 citalopram 2017-0 No 1mg 20 mg 6-21 tablet 00:00: 00 trazodone 2017-0 No 12mg 100 mg 6-21 tablet 00:00: 00 citalopram 2017-0 No 1mg 20 mg 6-21 tablet 00:00: 00 trazodone 2017-0 No 12mg 100 mg 6-21 tablet 00:00: 00 citalopram 2017-0 No 1mg 20 mg 6-21 tablet 00:00: 00 trazodone 2017-0 No 12mg 100 mg 6-21 tablet 00:00: 00 trazodone 2017-0 No 12mg 100 mg 4-26 tablet 00:00: 00 citalopram 2017-0 No 1mg 20 mg 4-26 tablet 00:00: 00 trazodone 2017-0 No 12mg 100 mg 4-26 tablet 00:00: 00 citalopram 2017-0 No 1mg 20 mg 4-26 tablet 00:00: 00 trazodone 2017-0 No 12mg 100 mg 4-26 tablet 00:00: 00 citalopram 2017-0 No 1mg 20 mg 4-26 tablet 00:00: 00 citalopram 2017-0 No 1mg 20 mg 3-29 tablet 00:00: 00 citalopram 2017-0 No 1mg 20 mg 3-29 tablet 00:00: 00 trazodone 2017-0 No 51mg 100 mg 3-29 tablet 00:00: 00 trazodone 2017-0 No 51mg 100 mg 3-29 tablet 00:00: 00 citalopram 2017-0 No 1mg 20 mg 3-29 tablet 00:00: 00 citalopram 2017-0 No 1mg 20 mg 3-29 tablet 00:00: 00 trazodone 2017-0 No 51mg 100 mg 3-29 tablet 00:00: 00 trazodone 2017-0 No 51mg 100 mg 3-29 tablet 00:00: 00 citalopram 2017-0 No 1mg 20 mg 3-29 tablet 00:00: 00 citalopram 2017-0 No 1mg 20 mg 3-29 tablet 00:00: 00 trazodone 2017-0 No 51mg 100 mg 3-29 tablet 00:00: 00 trazodone 2017-0 No 51mg 100 mg 3-29 tablet 00:00: 00 citalopram 2017-0 No 1mg 20 mg 3-01 tablet 00:00: 00 citalopram 2017-0 No 1mg 20 mg 3-01 tablet 00:00: 00 citalopram 2017-0 No 1mg 20 mg 3-01 tablet 00:00: 00 metformin 2016-0 No 1mg 500 mg 7-08 tablet 00:00: 00 metformin 2016-0 No 1mg 500 mg 7-08 tablet 00:00: 00 metformin 2016-0 No 1mg 500 mg 7-08 tablet 00:00: 00 Frank Marie Yes Marly 10 Units Common [facility] [facility] - [facility] Sertraline Sertraline Yes Marly 1 tablet Common HCl HCl [place] (to be Spirit taken with - [facility] Zoloft [address] mg) [facility] Sertraline Sertraline Yes Marly 1 tablet Common HCl HCl [place] (to be Spirit taken with - [facility] Zoloft [address] [facility] mg) [facility] Immunizations Ordered Filled Immunization Date Status Comments [facility] e Immunization Name Name [facility] 2022-01-24 Completed [facility] 00:00:00 [facility] HPV9 2022-01-24 Completed University 00:00:00 [facility] HPV9 2022-01-24 Completed University 00:00:00 [facility] Tdap 2021-06-03 Completed 00:00:00 Tdap 2021-06-03 Completed 00:00:00 Tdap 2021-06-03 Completed 00:00:00 Influenza Virus 2019-06-05 Completed Universit y of Vaccine 00:00:00 [facility] Influenza Virus 2019-06-05 Completed Universit y of Vaccine Quad IM, 00:00:00 [facility] [place] dical Preserv and ABX Branch Free 6 MO-64 YRS Influenza Virus 2019-06-05 Completed Universit y of Vaccine 00:00:00 [facility] Influenza Virus 2019-06-05 Completed Universit y of Vaccine Quad IM, 00:00:00 [facility] dical Preserv and ABX Branch Free 6 MO-64 YRS Influenza Virus 2019-06-05 Completed Universit y of Vaccine 00:00:00 [facility] Influenza Virus 2019-06-05 Completed Universit y of Vaccine Quad IM, 00:00:00 [facility] dical Preserv and ABX Branch Free 6 MO-64 YRS Flucelvax - single Flucelvax - single 2019-06-05 Completed [facility] - dose syringe dose syringe 00:00:00 [facility] TDAP (ADACEL) 2010-10-30 Completed [facility] VACCINE 00:00:00 [facility] TDAP (ADACEL) 2010-10-30 Completed [facility] VACCINE 00:00:00 [facility] TDAP (ADACEL) 2010-10-30 Completed [facility] VACCINE 00:00:00 [facility] Vital Signs Vital Name Observation Time Observation Value Comments Source BP Systolic 2022-05-19 08:04:00 92 mm[Hg] BP Diastolic 2022-05-19 08:04:00 67 mm[Hg] Weight Measured 2022-05-19 08:04:00 192.00 pounds Height Measured 2022-05-19 08:04:00 67.00 inches Body Temperature 2022-05-19 08:04:00 98.90 degrees Heart Rate 2022-05-19 08:04:00 77.00 /min Respiratory Rate 2022-05-19 08:04:00 24.00 /min Body Temperature 2022-01-31 16:13:00 97.90 degrees Heart Rate 2022-01-31 16:13:00 69.00 /min Respiratory Rate 2022-01-31 16:13:00 16.00 /min BP Systolic 2022-01-31 16:13:00 112 mm[Hg] BP Diastolic 2022-01-31 16:13:00 74 mm[Hg] Weight Measured 2022-01-31 16:13:00 197.80 pounds Height Measured 2022-01-31 16:13:00 67.00 inches BP Systolic 2021-06-16 09:39:00 102 mm[Hg] BP Diastolic 2021-06-16 09:39:00 63 mm[Hg] Weight Measured 2021-06-16 09:39:00 177.00 pounds Height Measured 2021-06-16 09:39:00 67.00 inches Body Temperature 2021-06-16 09:39:00 97.70 degrees Heart Rate 2021-06-16 09:39:00 76.00 /min Respiratory Rate 2021-06-16 09:39:00 BP Systolic 2021-06-03 14:08:00 114 mm[Hg] BP Diastolic 2021-06-03 14:08:00 72 mm[Hg] Weight Measured 2021-06-03 14:08:00 181.40 pounds Height Measured 2021-06-03 14:08:00 67.00 inches Body Temperature 2021-06-03 14:08:00 98.20 degrees Heart Rate 2021-06-03 14:08:00 78.00 /min Respiratory Rate 2021-06-03 14:08:00 BP Systolic 2021-05-13 12:11:00 90 mm[Hg] BP Diastolic 2021-05-13 12:11:00 48 mm[Hg] Weight Measured 2021-05-13 12:11:00 174.20 pounds Height Measured 2021-05-13 12:11:00 67.00 inches Body Temperature 2021-05-13 12:11:00 98.40 degrees Heart Rate 2021-05-13 12:11:00 94.00 /min Respiratory Rate 2021-05-13 12:11:00 BP Systolic 2021-05-13 11:51:00 90 mm[Hg] BP Diastolic 2021-05-13 11:51:00 48 mm[Hg] Weight Measured 2021-05-13 11:51:00 174.20 pounds Height Measured 2021-05-13 11:51:00 67.00 inches Body Temperature 2021-05-13 11:51:00 98.40 degrees Heart Rate 2021-05-13 11:51:00 94.00 /min Respiratory Rate 2021-05-13 11:51:00 BP Systolic 2021-02-27 08:46:00 111 mm[Hg] BP Diastolic 2021-02-27 08:46:00 67 mm[Hg] Weight Measured 2021-02-27 08:46:00 178.00 pounds Height Measured 2021-02-27 08:46:00 67.00 inches Body Temperature 2021-02-27 08:46:00 98.10 degrees Heart Rate 2021-02-27 08:46:00 69.00 /min Respiratory Rate 2021-02-27 08:46:00 BP Systolic 2021-02-22 13:40:00 106 mm[Hg] BP Diastolic 2021-02-22 13:40:00 62 mm[Hg] Weight Measured 2021-02-22 13:40:00 173.60 pounds Height Measured 2021-02-22 13:40:00 67.00 inches Body Temperature 2021-02-22 13:40:00 98.40 degrees Heart Rate 2021-02-22 13:40:00 65.00 /min Respiratory Rate 2021-02-22 13:40:00 17.00 /min BP Systolic 2021-02-12 13:49:00 102 mm[Hg] BP Diastolic 2021-02-12 13:49:00 59 mm[Hg] Weight Measured 2021-02-12 13:49:00 174.20 pounds Height Measured 2021-02-12 13:49:00 67.00 inches Body Temperature 2021-02-12 13:49:00 98.20 degrees Heart Rate 2021-02-12 13:49:00 68.00 /min Respiratory Rate 2021-02-12 13:49:00 BP Systolic 2021-02-08 16:27:00 103 mm[Hg] BP Diastolic 2021-02-08 16:27:00 69 mm[Hg] Weight Measured 2021-02-08 16:27:00 174.00 pounds Height Measured 2021-02-08 16:27:00 67.00 inches Body Temperature 2021-02-08 16:27:00 98.90 degrees Heart Rate 2021-02-08 16:27:00 68.00 /min Respiratory Rate 2021-02-08 16:27:00 17.00 /min Procedures Procedure Date / Time Performed Performing Clinician [facility] e 27549 Ecg Routine Ecg W/least 12 2016-02-26 00:00:00 Lds W/i r Plan of Care Planned Activity Planned Date Details Comments Source Goal Plan of Care Note [code = 71042-6] Goal Plan of Care Note [code = 00635-6] Goal Plan of Care Note [code = 60695-0] Goal Plan of Care Note [code = 12801-9] Goal Plan of Care Note [code = 89921-3] Goal Plan of Care Note [code = 34033-3] Goal Plan of Care Note [code = 02265-5] Goal Plan of Care Note [code = 07660-6] Goal Plan of Care Note [code = 99931-8] Goal Plan of Care Note [code = 76520-6] Goal Plan of Care Note [code = 67326-4] Goal Plan of Care Note [code = 38070-0] Goal Plan of Care Note [code = 14819-8] Goal Plan of Care Note [code = 58251-9] Goal Plan of Care Note [code = 09745-9] Goal Plan of Care Note [code = 03295-2] Goal Plan of Care Note [code = 74926-3] Goal Plan of Care Note [code = 79138-5] Goal Plan of Care Note [code = 59597-7] Goal Plan of Care Note [code = 37702-5] Goal Plan of Care Note [code = 42611-2] Goal Plan of Care Note [code = 04417-2] Goal Plan of Care Note [code = 57788-5] Goal Plan of Care Note [code = 31414-6] Goal Plan of Care Note [code = 54268-1] Goal Plan of Care Note [code = 63151-6] Goal Plan of Care Note [code = 57391-3] Goal Plan of Care Note [code = 63062-8] Goal Plan of Care Note [code = 45132-1] Goal Plan of Care Note [code = 33798-0] Goal Plan of Care Note [code = 67291-5] Goal Plan of Care Note [code = 89533-0] Goal Plan of Care Note [code = 30936-5] Goal Plan of Care Note [code = 79139-6] Goal Plan of Care Note [code = 94455-4] Goal Plan of Care Note [code = 13595-0] Goal Plan of Care Note [code = 87853-4] Goal Plan of Care Note [code = 89456-8] Goal Plan of Care Note [code = 03008-8] Goal Plan of Care Note [code = 96964-0] Goal Plan of Care Note [code = 09098-7] Goal Plan of Care Note [code = 25239-9] Goal Plan of Care Note [code = 22406-3] Goal Plan of Care Note [code = 04008-9] Goal Plan of Care Note [code = 90836-2] Goal Plan of Care Note [code = 54466-6] Goal Plan of Care Note [code = 09254-6] Goal Plan of Care Note [code = 20604-7] Goal Plan of Care Note [code = 04511-1] Goal Plan of Care Note [code = 48358-7] Goal Plan of Care Note [code = 09732-5] Goal Plan of Care Note [code = 86066-9] Goal Plan of Care Note [code = 48911-4] Goal Plan of Care Note [code = 81812-0] Goal Plan of Care Note [code = 32264-5] Goal Plan of Care Note [code = 25931-9] Goal Plan of Care Note [code = 99701-5] Goal Plan of Care Note [code = 56050-7] Goal Plan of Care Note [code = 28231-9] Goal Plan of Care Note [code = 78764-7] Goal Plan of Care Note [code = 42757-3] Goal Plan of Care Note [code = 39813-4] Goal Plan of Care Note [code = 23631-0] Goal Plan of Care Note [code = 58642-2] Encounters Start End Encounter Admission Attending Care Care Encounter Source Date/Time Date/Time Type Type Clinicians Facility Department ID 2021-09-15 Outpatient Gregoryender, STLMLC STLMLC [id number] Common 11:08:43 Marly [id number] [facility] 2021-09-15 Outpatient Millender, STLMLC STLMLC [id number] Common 11:07:41 Marly [id number] [facility] 2021-09-15 Outpatient Millender, STLMLC STLMLC [id number] Common 11:06:19 Marly [id number] [facility] 2021-09-15 Outpatient Millender, STLMLC STLMLC [id number] Common 11:02:49 Marly [id number] [facility] 2021-09-15 Outpatient Millender, STLMLC STLMLC [id number] Common 11:01:11 Marly [id number] [facility] 2021-09-15 Outpatient Gregoryender, STLMLC STLMLC [id number] Common 11:00:53 Marly [id number] [facility] 2022-06-20 2022-06-20 Outpatient R NOAH MACIAS [facility] [id number] Univers 15:30:00 15:30:00 NOAH MACIAS stephanie [facility] 2022-06-02 2022-06-02 Outpatient [id number] 00:00:00 00:00:00 Visit x3c1-1076 9a9-9997-v -t998-b15 [id number]-x90540 [id number] 537aeb 2022-05-19 2022-05-19 Outpatient [id number] 00:00:00 00:00:00 Visit x3xq-15f1 4cd-49a1-a -b8nb-2yk 9ef-8ae899 [id number] 4406-09-19 2022-05-[address] [facility] 1.2.175.313 [id number] Univers 00:00:00 00:00:00 [facility] 350.1.13.10 it y of [place] 4.2.7.2.686 Ivan as IKE?BLEA [phone] [address] 2022-05-06 2022-05-06 Outpatient [id number] [id number] 00:00:00 00:00:00 Visit 1141-497f 141-497f-a -k6g1-484 7n3-8487j9 2v670z7x1 85a6f0 2022-05-04 2022-05-[address] [facility] 1.2.840.114 [id number] Univers 00:00:00 00:00:00 [facility] 350.1.13.10 it y of [place] 4.2.7.2.686 Ivan as IKE?BLEA [phone] [address] 2022-04-19 2022-04-19 [facility] [id number] Univers 12:00:00 12:00:00 [facility] 2022-04-19 2022-04-19 [facility] [id number] Univers 12:00:00 12:00:00 [facility] 2022-03-29 2022-03-[address] [facility] 1.2.981.310 [id number] Univers 00:00:00 00:00:00 [facility] 350.1.13.10 it y of [place] 4.2.7.2.686 Ivan as IKE?BLEA [phone] [address] 2022-03-28 2022-03-[address] [facility] 1.2.840.114 [id number] Univers 00:00:00 00:00:00 Secure Msg Unassigned, HEALTH 350.1.13.10 [place] 4.2.7.2.686 Ivan as IKE?BLEA [phone] [address] OFFICE [facility] 2022-03-24 2022-03-24 Telephone Keller, [facility] 1.2.838.812 [id number] Univers 00:00:00 00:00:00 [facility] HEALTH 350.1.13.10 [place] 4.2.7.2.686 Ivan as IKE?BLEA [phone] [address] OFFICE [facility] 2022-03-24 2022-03-24 Telephone Keller, [facility] 1.2.206.605 [id number] Univers 00:00:00 00:00:00 [facility] 350.1.13.10 [place] 4.2.7.2.686 Ivan as IKE?BLEA [phone] [address] 2022-02-23 2022-02-23 Telephone [facility], [facility] 1.2.840.114 [id number] Univers 00:00:00 00:00:00 Alanna Pack FEEDER/FOLDER 350.1.13.10 ity of [facility] 4.2.7.2.686 Ivan as MATERNAL [phone] Med ical & CHILD [address] [place] [address] 2022-02-22 2022-02-22 Outpatient R [facility] [id number] Univers 08:00:00 08:00:00 ity of [facility] 2022-02-22 2022-02-22 Outpatient R [facility] [id number] Univers 08:00:00 08:00:00 ALANNA ity o f [facility] 2022-01-24 2022-01-24 Office [facility] 1.2.991.513 [id number] Univers 09:00:00 09:44:20 Visit Alanna Pack FEEDER/FOLDER 350.1.13.10 ity of [facility] 4.2.7.2.686 Ivan as MATERNAL [phone] [facility] ical & CHILD [address] [place] [address] 2022-01-24 2022-01-24 Outpatient R AKINSIPE, [facility] [id number] Univers 09:00:00 09:44:20 ALANNA ity o f [facility] 2022-01-24 2022-01-24 Outpatient R AKINSIPE, [facility] [id number] Univers 09:00:00 09:00:00 ALANNA ity o f [facility] 2022-01-24 2022-01-24 Outpatient R AKINSIPE, [facility] [id number] Univers 09:00:00 09:00:00 ALANNA rodriguezy o f [facility] 2022-01-24 2022-01-24 Orders Doctor NAVIN 1.2.840.114 [id number] Univers 00:00:00 00:00:00 Only Unassigned, [facility] 350.1.13.10 [facility] 4.2.7.2.686 Ivan as [phone] [address] 2022-01-12 2022-01-12 Outpatient R AKINSIPE, [facility] [id number] Univers 11:00:00 11:00:00 ALANNA valdez o [facility] 2021-12-14 2021-12-[address] [facility] 1.2.840.114 [id number] Univers 15:00:00 15:57:28 Visit [facility] 350.1.13.10 [place] 4.2.7.2.686 Ivan as IKE?BLEA [phone] [address] MEDICAL OFFICE BUILDING 2021-12-14 2021-12-14 Outpatient R KRISHNA [facility] [id number] Univers 15:00:00 15:57:28 [facility] 2021-12-14 2021-12-14 [facility] [id number] Univers 15:00:00 15:00:00 [facility] 2021-11-16 2021-11-[address] [facility] ERT [id number] Univers 20:37:00 22:44:00 GABRIELLA [facility] 2021-11-16 2021-11-16 Emergency [facility] 1.2.284.142 [id number] Univers 20:37:00 22:44:00 Gabriella [place] 350.1.13.10 ity of [facility] 4.2.7.2.686 [place] [phone] [facility] [address] 2021-11-16 2021-11-16 Nurse Nurse, [facility] 1.2.840.114 [id number] Univers 20:15:00 20:35:[address] [facility] 350.1.13.10 [place] 4.2.7.2.686 Ivan as IKE?BLEA [phone] [facility] [address] MEDICAL OFFICE BUILDING 2021-11-16 2021-11-16 Outpatient R CHAYO [facility] [id number] Univers 20:15:00 20:15:00 [facility] 2021-11-16 2021-11-16 Outpatient R IAN [facility] [id number] Univers 20:00:00 20:00:00 [facility] 2021-11-16 2021-11-16 Orders Doctor NAVIN 1.2.840.114 [id number] Univers 00:00:00 00:00:00 Only Unassigned, BELINDA 350.1.13.10 ity of [place] [facility] 4.2.7.2.686 Ivan as [phone] [facility] [address] 2021-08-10 2021-08-[address] [facility] 1.2.840.114 [id number] Univers 00:00:00 00:00:00 Secure Msg [facility] MULTISPEC 350.1.13.10 [place] of [place].2.[place] [phone] [facility] AND MELLISA [address] [facility] 2021-08-06 2021-08-[address] [facility] 1.2.940.006 [id number] Univers 00:00:00 00:00:00 [place] HEALTH 350.1.13.10 [place] 4.2.7.2.686 Ivan as IKE?BLEA [phone] [address] OFFICE [facility] 2021-08-03 2021-08-03 Instrumentation Designer Lab, Ang - Db [facility] 1.2.840.1 14 [id number] Univers 15:56:35 16:11:35 Visit Krishna [facility] 350.1.13.10 ity of [place] 4.2.7.2.686 Ivan as IKE?BLEA [phone] [facility] [address] [facility] OFFICE [facility] 2021-08-03 2021-08-[address] [facility] 1.2.840.114 [id number] Univers 15:05:23 15:57:21 Visit [facility] 350.1.13.10 it y of [place] 4.2.7.2.686 Ivan as IKE?BLEA [phone] [address] OFFICE [facility] 2021-08-03 2021-08-03 Outpatient R KRISHNA [facility] [id number] Univers 15:00:00 15:57:21 [facility] 2021-08-01 2021-08-[address] [facility] 1.2.840.114 [id number] Univers 00:00:00 00:00:00 [facility] 350.1.13.10 it y of [place] 4.2.7.2.686 Ivan as IKE?BLEA [phone] [address] OFFICE [facility] 2021-04-20 2021-04-[address] [facility] 1.2.840.114 [id number] Univers 16:08:53 17:04:19 Visit [facility] 350.1.13.10 it y of [place] 4.2.7.2.686 Ivan as Ike?Blea [phone] [address] Office [facility] 2021-04-20 2021-04-20 Outpatient R KRISHNA [facility] [id number] Univers 16:00:00 16:00:00 [facility] 2021-04-20 2021-04-20 Orders Doctor NAVIN 1.2.840.114 [id number] Univers 00:00:00 00:00:00 Only Unassigned, BELINDA 350.1.13.10 ity of [place] [facility] 4.2.7.2.686 Ivan as [phone] [facility] [address] 2021-04-20 2021-04-20 Orders Doctor NAVIN 1.2.840.114 [id number] Univers 00:00:00 00:00:00 Only Unassigned, BELINDA 350.1.13.10 ity of [place] [facility]PITAL 4.2.7.2.686 Ivan as [phone] [address] 2021-04-16 2021-04-16 Outpatient Freddie MOODY [facility] [id number] Univers 10:00:00 10:00:00 LISA ity of [facility] 2020-12-22 2020-12-22 Case Mary Jo Coe 1.2.840.114 [id number] Univers 00:00:00 00:00:00 Management Sheree Srivastava 350.1.13.10 ity of [place] [phone] [facility] [address] 2020-12-22 2020-12-22 Case Mary Jo Coe 1.2.840.114 [id number] 00:00:00 00:00:00 Management Sheree Srivastava 350.1.13.10 [place] 4.2.7.2.686 [id number] 086 2020-11-09 2020-11-[address] [facility] 1.2.840.114 [id number] Univers 00:00:00 00:00:00 Outreach Osiel PRIMARY 350.1.13.10 i ty of [place].2.[place] [phone] Nm dical [address] 2020-11-09 2020-11-[address] [facility] 1.2.840.114 [id number] 00:00:00 00:00:00 Outreach Osiel PRIMARY 350.1.13.10 [place] 4.2.7.2.686 PAVILLION [phone] 388 2020-06-24 2020-06-24 Orders Doctor NAVIN 1.2.840.114 [id number] Univers 00:00:00 00:00:00 Only Unassigned, BELINDA 350.1.13.10 ity of [place] [facility] 4.2.7.2.686 Ivan as [phone] [address] 2020-06-24 2020-06-24 Orders Doctor NAVIN 1.2.840.114 [id number] 00:00:00 00:00:00 Only Unassigned, BELINDA 350.1.13.10 [place] [facility] 4.2.7.2.686 [phone] [facility] 2020-06-23 2020-06-23 Telephone [facility] 1.2.840.[id number] [facility] [place] 00:00:00 00:00:00 Avila Alston 350.1.13.10 i ty of [place].2.[place] [phone] [address] 2020-06-23 2020-06-23 Telephone [facility] 1.2.840.114 [id number] 00:00:00 00:00:00 Avila [place] 350.1.13.10 [place] 4.2.7.2.686 Professio [phone] [address] 2020-01-31 2020-01-31 Outpatient R [facility] [id number] Univers 15:15:00 15:15:00 [facility] 2020-01-17 2020-01-17 [facility] [id number] Univers 16:30:00 16:30:00 AVILA ity [facility] 2020-01-17 2020-01-17 [facility] [address] [facility] 1.2.840.[id number] [facility] [place] 08:15:28 08:45:28 ne Visit Avila [place] 350.1.13.10 ity of [place].2.[place] [phone] [address] 2020-01-17 2020-01-17 [facility] 1.2.840.114 [id number] 08:15:28 08:45:28 ne Visit Avila [place] 350.1.13.10 [place] 4.2.7.2.686 Professio [phone] [address] 2019-11-18 2019-11-18 Outpatient [facility] [id number] Common 16:14:00 16:14:00 t [facility] [place] 2019-10-15 2019-11-08 Office Krishna, [facility] 1.2.840.114 [id number] Univers 09:36:18 14:53:14 Visit Donald [place] 350.1.13.10 i ty of [place].2.[place] [phone] [address] 2019-10-15 2019-11-[address] [facility] 1.2.840.114 [id number] 09:36:18 14:53:14 Visit Donald [place] 350.1.13.10 [place] 4.2.7.2.686 Professio [phone] [address] 2019-11-06 2019-11-06 Telephone [facility] 1.2.840.114 [id number] Univers 00:00:00 00:00:00 Avila Alston 350.1.13.10 i ty [place].2.[place] [phone] [address] 2019-10-22 2019-10-[address] [facility] 1.2.840.114 [id number] Univers 00:00:00 00:00:00 Avila Alston 350.1.13.10 i ty of [place] [phone] Nm dic[address] 2019-10-21 2019-10-21 [facility] 1.2.840.114 [id number] Univers 00:00:00 00:00:00 Avila H Yoni 350.1.13.10 i ty [place].2.[place] [phone] [address] 2019-10-17 2019-10-17 [facility] 1.2.840.114 [id number] Univers 00:00:00 00:00:00 Avila Alston 350.1.13.10 i ty [place] [phone] [facility] 220 [facility] 2019-10-16 2019-10-[address] [facility] 1.2.840.114 [id number] Univers 00:00:00 00:00:00 (Out) Donald [place] 350.1.13.10 i ty [place] [phone] Nm dical nal 220 [facility] 2019-10-15 2019-10-15 [facility] [id number] Univers 09:30:00 09:30:00 DONALD itstephanie [facility] 2019-10-15 2019-10-15 Orders Doctor NAVIN 1.2.840.114 [id number] Univers 00:00:00 00:00:00 Only Unassigned, BELINDA 350.1.13.10 ity of [place] [facility] 4.2.7.2.686 Ivan as [phone] [address] 2019-07-09 2019-07-09 Outpatient [facility] [id number] Common 02:50:00 02:50:00 [facility] [address] [facility] 2019-06-05 2019-06-05 Outpatient [facility] [id number] Common 08:20:00 08:20:00 t [facility] [address] [facility] 2018-03-14 2018-03-14 Outpatient [facility] [id number] Common 23:06:00 23:06:00 t [facility] [address] [facility] 2018-03-14 2018-03-14 Outpatient [facility] [id number] Common 13:15:00 13:15:00 t [facility] [address] [facility] 2018-02-22 2018-02-22 Outpatient [facility] [id number] Common 15:14:00 15:14:00 t [facility] [address] [facility] 2018-02-13 2018-02-13 Outpatient [facility] 14 [id number] Common 11:01:00 11:01:[address] [facility] [address] [facility] 2018-02-13 2018-02-13 [facility] 14 [id number] Common 01:15:00 01:15:[address] [facility] [address] [facility] 2018-02-12 2018-02-12 [facility] 14 [id number] Common 11:15:00 11:15:00 t [facility] [address] [facility] 2018-01-16 2018-01-16 [facility] [id number] Common 23:01:00 23:01:[address] [facility] [facility] [address] [facility] 2018-01-16 2018-01-16 [facility] 13 [id number] Common 15:00:00 15:00:00 [facility] [address] [facility] Results Test Description Test Time Test Comments Results Result Comments Source HEMOGLOBIN A1c 2022-02-02 06:01:29 Test Item Value Reference Range Interpretation Comme nts HEMOGLOBIN A1c (test code = 8.7 % 4.2-5.6 H [employer] 28974) GUIDELINES FOR HGB A1C: PREDIABETES/INC REASED RISK . . . . . . . 5.7-6.4% DIAGNO SIS OF DIABETES . . . . . . . . . >=6.5% WITH CONFIRMATION OR APPROPRIATE SYM PTOMS NOTE: ASSAY MAY BE AFFECTED BY HEM OGLOBINOPATHIES (SICKLE CELL ANEMIA, S- C DISEASE, OTHERS) OR ARTIFICIALLY LO WERED BY DECREASED RED CELL SURVIVAL ( HEMOLYTIC ANEMIAS, BLOOD LOSS, ETC.). CO NSIDER ALTERNATE TESTING OR LABORATORY C ONSULTATION. UNLESS OTHERWISE INDIC ATED, ALL TESTING PERFORMED [facility], [id number] [place] [address] DIRECTOR: LUISA COTO M.D. CLIA NUMBER [id number] [place] [id number] HEMOGLOBIN [id number] 00:00:00 Test Item Value Reference Range Interpretation Comments HEMOGLOBIN A1c (test code = 46935) 8.7 % HEMOGLOBIN [id number] 00:00:00 Test Item Value Reference Range Interpretation Comments HEMOGLOBIN A1c (test code = 35664) 8.7 % HEMOGLOBIN [id number] 00:00:00 Test Item Value Reference Range Interpretation Comments HEMOGLOBIN A1c (test code = 60912) 8.7 % HEMOGLOBIN [id number] 00:00:00 Test Item Value Reference Range Interpretation Comments HEMOGLOBIN A1c (test code = 11109) 8.7 % HEMOGLOBIN [id number] 00:00:00 Test Item Value Reference Range Interpretation Comments HEMOGLOBIN A1c (test code = 22759) 8.7 % HEMOGLOBIN [id number] 00:00:00 Test Item Value Reference Range Interpretation Comments HEMOGLOBIN A1c (test code = 17512) 8.7 % HEMOGLOBIN [id number] 00:00:00 Test Item Value Reference Range Interpretation Comments HEMOGLOBIN A1c (test code = 32779) 8.7 % HEMOGLOBIN [id number] 00:00:00 Test Item Value Reference Range Interpretation Comments HEMOGLOBIN A1c (test code = 56237) 8.7 % HEMOGLOBIN [id number] 00:00:00 Test Item Value Reference Range Interpretation Comments HEMOGLOBIN A1c (test code = 97344) 8.7 % VITAMIN D, 25 [id number] 00:00:00 Test Item Value Reference Range Interpretation Comments VITAMIN D, 25 OH (test code = 4958) 11 NG/ML VITAMIN D, 25 [id number] 00:00:00 Test Item Value Reference Range Interpretation Comments VITAMIN D, 25 OH (test code = 4958) 11 NG/ML VITAMIN D, 25 [id number] 00:00:00 Test Item Value Reference Range Interpretation Comments VITAMIN D, 25 OH (test code = 4958) 11 NG/ML VITAMIN D, 25 [id number] 00:00:00 Test Item Value Reference Range Interpretation Comments VITAMIN D, 25 OH (test code = 4958) 11 NG/ML VITAMIN D, 25 [id number] 00:00:00 Test Item Value Reference Range Interpretation Comments VITAMIN D, 25 OH (test code = 4958) 11 NG/ML VITAMIN D, 25 [id number] 00:00:00 Test Item Value Reference Range Interpretation Comments VITAMIN D, 25 OH (test code = 4958) 11 NG/ML HEMOGLOBIN [id number] 00:00:00 Test Item Value Reference Range Interpretation Comments HEMOGLOBIN A1c (test code = 63039) 14.3 % HEMOGLOBIN [id number] 00:00:00 Test Item Value Reference Range Interpretation Comments HEMOGLOBIN A1c (test code = 52641) 14.3 % HEMOGLOBIN [id number] 00:00:00 Test Item Value Reference Range Interpretation Comments HEMOGLOBIN A1c (test code = 22535) 14.3 % LIPID [id number] 00:00:00 Test Item Value Reference Range Interpretation Comments CHOLESTEROL (test code = 2210) 139 MG/DL TRIGLYCERIDES (test code = 2232) 172 MG/DL HDL CHOLESTEROL (test code = 2220) 49 MG/DL CALC LDL CHOL (test code = 2237) 65 MG/DL RISK RATIO LDL/HDL (test code = 1.33 RATIO 2238) LIPID [id number] 00:00:00 Test Item Value Reference Range Interpretation Comments CHOLESTEROL (test code = 2210) 139 MG/DL TRIGLYCERIDES (test code = 2232) 172 MG/DL HDL CHOLESTEROL (test code = 2220) 49 MG/DL CALC LDL CHOL (test code = 2237) 65 MG/DL RISK RATIO LDL/HDL (test code = 1.33 RATIO 2238) COMPREHENSIVE METABOLIC [id number] 00:00:00 Test Item Value Reference Range Interpretation Comments GLUCOSE (test code = 2217) 391 MG/DL BUN (test code = 2208) 14 MG/DL CREATININE (test code = 2214) 0.92 MG/DL eGFR AMER. (test code 92 ML/MIN/1.73 = 40926) eGFR NON- AMER. (test 79 ML/MIN/1.73 code = 03888) CALC BUN/CREAT (test code = 15 RATIO 2235) SODIUM (test code = 2231) 135 MEQ/L POTASSIUM (test code = 2228) 4.1 MEQ/L CHLORIDE (test code = 2215) 98 MEQ/L CARBON DIOXIDE (test code = 25 MEQ/L 2205) CALCIUM (test code = 2209) 9.5 MG/DL PROTEIN, TOTAL (test code = 7.3 G/DL 2228) ALBUMIN (test code = 2201) 4.3 G/DL CALC GLOBULIN (test code = 3.0 G/DL 2240) CALC A/G RATIO (test code = 1.4 RATIO 2234) BILIRUBIN, TOTAL (test code = 0.3 MG/DL 2207) ALKALINE PHOSPHATASE (test 71 U/L code = 2204) AST (test code = 2218) 11 U/L ALT (test code = 2219) 16 U/L COMPREHENSIVE METABOLIC [id number] 00:00:00 Test Item Value Reference Range Interpretation Comments GLUCOSE (test code = 2217) 391 MG/DL BUN (test code = 2208) 14 MG/DL CREATININE (test code = 2214) 0.92 MG/DL eGFR AMER. (test code 92 ML/MIN/1.73 = 79222) eGFR NON- AMER. (test 79 ML/MIN/1.73 code = 90411) CALC BUN/CREAT (test code = 15 RATIO 2235) SODIUM (test code = 2231) 135 MEQ/L POTASSIUM (test code = 2228) 4.1 MEQ/L CHLORIDE (test code = 2215) 98 MEQ/L CARBON DIOXIDE (test code = 25 MEQ/L 6) CALCIUM (test code = 2209) 9.5 MG/DL PROTEIN, TOTAL (test code = 7.3 G/DL 2229) ALBUMIN (test code = 2201) 4.3 G/DL CALC GLOBULIN (test code = 3.0 G/DL 2240) CALC A/G RATIO (test code = 1.4 RATIO 2234) BILIRUBIN, TOTAL (test code = 0.3 MG/DL 2207) ALKALINE PHOSPHATASE (test 71 U/L code = 2204) AST (test code = 2218) 11 U/L ALT (test code = 2219) 16 U/L [id number] 00:00:00 Test Item Value Reference Range Interpretation Comments TSH, THIRD GENERATION (test code 0.400 UIU/ML = 2821) [id number] 00:00:00 Test Item Value Reference Range Interpretation Comments TSH, THIRD GENERATION (test code 0.400 UIU/ML = 2821) [id number] 00:00:00 Test Item Value Reference Range Interpretation Comments TSH, THIRD GENERATION (test code 0.400 UIU/ML = 2821) HEMOGLOBIN [id number] 00:00:00 Test Item Value Reference Range Interpretation Comments HEMOGLOBIN A1c (test code = 67140) 14.3 % HEMOGLOBIN [id number] 00:00:00 Test Item Value Reference Range Interpretation Comments HEMOGLOBIN A1c (test code = 89370) 14.3 % HEMOGLOBIN [id number] 00:00:00 Test Item Value Reference Range Interpretation Comments HEMOGLOBIN A1c (test code = 97126) 14.3 % LIPID [id number] 00:00:00 Test Item Value Reference Range Interpretation Comments CHOLESTEROL (test code = 2210) 139 MG/DL TRIGLYCERIDES (test code = 2232) 172 MG/DL HDL CHOLESTEROL (test code = 2220) 49 MG/DL CALC LDL CHOL (test code = 2237) 65 MG/DL RISK RATIO LDL/HDL (test code = 1.33 RATIO 2238) LIPID [id number] 00:00:00 Test Item Value Reference Range Interpretation Comments CHOLESTEROL (test code = 2210) 139 MG/DL TRIGLYCERIDES (test code = 2232) 172 MG/DL HDL CHOLESTEROL (test code = 2220) 49 MG/DL CALC LDL CHOL (test code = 2237) 65 MG/DL RISK RATIO LDL/HDL (test code = 1.33 RATIO 2238) COMPREHENSIVE METABOLIC [id number] 00:00:00 Test Item Value Reference Range Interpretation Comments GLUCOSE (test code = 2217) 391 MG/DL BUN (test code = 2208) 14 MG/DL CREATININE (test code = 2214) 0.92 MG/DL eGFR AMER. (test code 92 ML/MIN/1.73 = 11172) eGFR NON- AMER. (test 79 ML/MIN/1.73 code = 85941) CALC BUN/CREAT (test code = 15 RATIO 2235) SODIUM (test code = 2231) 135 MEQ/L POTASSIUM (test code = 2228) 4.1 MEQ/L CHLORIDE (test code = 2215) 98 MEQ/L CARBON DIOXIDE (test code = 25 MEQ/L 2205) CALCIUM (test code = 2209) 9.5 MG/DL PROTEIN, TOTAL (test code = 7.3 G/DL 2228) ALBUMIN (test code = 220) 4.3 G/DL CALC GLOBULIN (test code = 3.0 G/DL 2239) CALC A/G RATIO (test code = 1.4 RATIO 2234) BILIRUBIN, TOTAL (test code = 0.3 MG/DL 2206) ALKALINE PHOSPHATASE (test 71 U/L code = 2204) AST (test code = 2218) 11 U/L ALT (test code = 2219) 16 U/L COMPREHENSIVE METABOLIC [id number] 00:00:00 Test Item Value Reference Range Interpretation Comments GLUCOSE (test code = 2217) 391 MG/DL BUN (test code = 2208) 14 MG/DL CREATININE (test code = 2214) 0.92 MG/DL eGFR AMER. (test code 92 ML/MIN/1.73 = 22961) eGFR NON- AMER. (test 79 ML/MIN/1.73 code = 27683) CALC BUN/CREAT (test code = 15 RATIO 2235) SODIUM (test code = 2231) 135 MEQ/L POTASSIUM (test code = 2228) 4.1 MEQ/L CHLORIDE (test code = 2215) 98 MEQ/L CARBON DIOXIDE (test code = 25 MEQ/L 2205) CALCIUM (test code = 2209) 9.5 MG/DL PROTEIN, TOTAL (test code = 7.3 G/DL 2228) ALBUMIN (test code = 2201) 4.3 G/DL CALC GLOBULIN (test code = 3.0 G/DL 2240) CALC A/G RATIO (test code = 1.4 RATIO 2233) BILIRUBIN, TOTAL (test code = 0.3 MG/DL 2206) ALKALINE PHOSPHATASE (test 71 U/L code = 2204) AST (test code = 2218) 11 U/L ALT (test code = 2219) 16 U/L [id number] 00:00:00 Test Item Value Reference Range Interpretation Comments TSH, THIRD GENERATION (test code 0.400 UIU/ML = 2821) [id number] 00:00:00 Test Item Value Reference Range Interpretation Comments TSH, THIRD GENERATION (test code 0.400 UIU/ML = 2821) [id number] 00:00:00 Test Item Value Reference Range Interpretation Comments TSH, THIRD GENERATION (test code 0.400 UIU/ML = 2821) HEMOGLOBIN [id number] 00:00:00 Test Item Value Reference Range Interpretation Comments HEMOGLOBIN A1c (test code = 29029) 14.3 % HEMOGLOBIN [id number] 00:00:00 Test Item Value Reference Range Interpretation Comments HEMOGLOBIN A1c (test code = 77117) 14.3 % HEMOGLOBIN [id number] 00:00:00 Test Item Value Reference Range Interpretation Comments HEMOGLOBIN A1c (test code = 08254) 14.3 % LIPID [id number] 00:00:00 Test Item Value Reference Range Interpretation Comments CHOLESTEROL (test code = 2210) 139 MG/DL TRIGLYCERIDES (test code = 2232) 172 MG/DL HDL CHOLESTEROL (test code = 2220) 49 MG/DL CALC LDL CHOL (test code = 2237) 65 MG/DL RISK RATIO LDL/HDL (test code = 1.33 RATIO 2238) LIPID [id number] 00:00:00 Test Item Value Reference Range Interpretation Comments CHOLESTEROL (test code = 2210) 139 MG/DL TRIGLYCERIDES (test code = 2232) 172 MG/DL HDL CHOLESTEROL (test code = 2220) 49 MG/DL CALC LDL CHOL (test code = 2237) 65 MG/DL RISK RATIO LDL/HDL (test code = 1.33 RATIO 2238) COMPREHENSIVE METABOLIC [id number] 00:00:00 Test Item Value Reference Range Interpretation Comments GLUCOSE (test code = 2217) 391 MG/DL BUN (test code = 2208) 14 MG/DL CREATININE (test code = 2214) 0.92 MG/DL eGFR AMER. (test code 92 ML/MIN/1.73 = 07332) eGFR NON- AMER. (test 79 ML/MIN/1.73 code = 96300) CALC BUN/CREAT (test code = 15 RATIO 2235) SODIUM (test code = 2231) 135 MEQ/L POTASSIUM (test code = 2228) 4.1 MEQ/L CHLORIDE (test code = 2215) 98 MEQ/L CARBON DIOXIDE (test code = 25 MEQ/L 2205) CALCIUM (test code = 2209) 9.5 MG/DL PROTEIN, TOTAL (test code = 7.3 G/DL 2228) ALBUMIN (test code = 220) 4.3 G/DL CALC GLOBULIN (test code = 3.0 G/DL 2239) CALC A/G RATIO (test code = 1.4 RATIO 2234) BILIRUBIN, TOTAL (test code = 0.3 MG/DL 2206) ALKALINE PHOSPHATASE (test 71 U/L code = 2204) AST (test code = 2218) 11 U/L ALT (test code = 2219) 16 U/L COMPREHENSIVE METABOLIC [id number] 00:00:00 Test Item Value Reference Range Interpretation Comments GLUCOSE (test code = 2217) 391 MG/DL BUN (test code = 2208) 14 MG/DL CREATININE (test code = 2214) 0.92 MG/DL eGFR AMER. (test code 92 ML/MIN/1.73 = 45368) eGFR NON- AMER. (test 79 ML/MIN/1.73 code = 75589) CALC BUN/CREAT (test code = 15 RATIO 2235) SODIUM (test code = 2231) 135 MEQ/L POTASSIUM (test code = 2228) 4.1 MEQ/L CHLORIDE (test code = 2215) 98 MEQ/L CARBON DIOXIDE (test code = 25 MEQ/L 2205) CALCIUM (test code = 2209) 9.5 MG/DL PROTEIN, TOTAL (test code = 7.3 G/DL 2228) ALBUMIN (test code = 2201) 4.3 G/DL CALC GLOBULIN (test code = 3.0 G/DL 0) CALC A/G RATIO (test code = 1.4 RATIO 4) BILIRUBIN, TOTAL (test code = 0.3 MG/DL 2206) ALKALINE PHOSPHATASE (test 71 U/L code = 2204) AST (test code = 2218) 11 U/L ALT (test code = 2219) 16 U/L [id number] 00:00:00 Test Item Value Reference Range Interpretation Comments TSH, THIRD GENERATION (test code 0.400 UIU/ML = 2821) [id number] 00:00:00 Test Item Value Reference Range Interpretation Comments TSH, THIRD GENERATION (test code 0.400 UIU/ML = 2821) [id number] 00:00:00 Test Item Value Reference Range Interpretation Comments TSH, THIRD GENERATION (test code 0.400 UIU/ML = 2821) SARS-CoV-2 (COVID-19) by RT-PCR (HIGH RISK)2020-02-29 00:00:00 Test Item Value Reference Range Interpretation Comments SARS-CoV-2 INTERPRETATION NEGATIVE (test code = 77664) SOURCE (test code = 29869) NASOPHARYNGEAL SARS-CoV-2 (COVID-19) by RT-PCR (HIGH RISK)2020-02-29 00:00:00 Test Item Value Reference Range Interpretation Comments SARS-CoV-2 INTERPRETATION NEGATIVE (test code = 82565) SOURCE (test code = 76709) NASOPHARYNGEAL SARS-CoV-2 (COVID-19) by RT-PCR (HIGH RISK)2020-02-29 00:00:00 Test Item Value Reference Range Interpretation Comments SARS-CoV-2 INTERPRETATION NEGATIVE (test code = 57750) SOURCE (test code = 44463) NASOPHARYNGEAL SARS-CoV-2 (COVID-19) by RT-PCR (HIGH RISK)2020-02-29 00:00:00 Test Item Value Reference Range Interpretation Comments SARS-CoV-2 INTERPRETATION NEGATIVE (test code = 65711) SOURCE (test code = 63609) NASOPHARYNGEAL SARS-CoV-2 (COVID-19) by RT-PCR (HIGH RISK)2020-02-29 00:00:00 Test Item Value Reference Range Interpretation Comments SARS-CoV-2 INTERPRETATION NEGATIVE (test code = 99635) SOURCE (test code = 19661) NASOPHARYNGEAL SARS-CoV-2 (COVID-19) by RT-PCR (HIGH RISK)2020-02-29 00:00:00 Test Item Value Reference Range Interpretation Comments SARS-CoV-2 INTERPRETATION NEGATIVE (test code = 68621) SOURCE (test code = 11059) NASOPHARYNGEAL SARS-CoV-2 (COVID-19) by RT-PCR (HIGH RISK)2020-02-19 00:00:00 Test Item Value Reference Range Interpretation Comments SARS-CoV-2 INTERPRETATION (test NEGATIVE code = 03362) SOURCE (test code = 79491) NOT SPECIFIED SARS-CoV-2 (COVID-19) by RT-PCR (HIGH RISK)2020-02-19 00:00:00 Test Item Value Reference Range Interpretation Comments SARS-CoV-2 INTERPRETATION (test NEGATIVE code = 82540) SOURCE (test code = 98074) NOT SPECIFIED SARS-CoV-2 (COVID-19) by RT-PCR (HIGH RISK)2020-02-19 00:00:00 Test Item Value Reference Range Interpretation Comments SARS-CoV-2 INTERPRETATION (test NEGATIVE code = 41011) SOURCE (test code = 72010) NOT SPECIFIED SARS-CoV-2 (COVID-19) by RT-PCR (HIGH RISK)2020-02-19 00:00:00 Test Item Value Reference Range Interpretation Comments SARS-CoV-2 INTERPRETATION (test NEGATIVE code = 22080) SOURCE (test code = 02402) NOT SPECIFIED SARS-CoV-2 (COVID-19) by RT-PCR (HIGH RISK)2020-02-19 00:00:00 Test Item Value Reference Range Interpretation Comments SARS-CoV-2 INTERPRETATION (test NEGATIVE code = 74269) SOURCE (test code = 49971) NOT SPECIFIED SARS-CoV-2 (COVID-19) by RT-PCR (HIGH RISK)2020-02-19 00:00:00 Test Item Value Reference Range Interpretation Comments SARS-CoV-2 INTERPRETATION (test NEGATIVE code = 60926) SOURCE (test code = 33256) NOT SPECIFIED CBC W/AUTO [id number] 00:00:00 Test Item Value Reference Range Interpretation Comments WBC (test code = 1001) 7.8 K/UL RBC (test code = 1002) 4.22 M/UL HEMOGLOBIN (test code = 1003) 12.1 G/DL HEMATOCRIT (test code = 1004) 34.2 % MCV (test code = 1005) 81.0 fL MCH (test code = 1006) 28.7 PG MCHC (test code = 1007) 35.4 G/DL RDW (test code = 1038) 13.5 % NEUTROPHILS (test code = 1008) 68 % LYMPHOCYTES (test code = 1010) 24 % MONOCYTES (test code = 1011) 6 % EOSINOPHILS (test code = 1012) 2 % BASOPHILS (test code = 1013) % PLATELET COUNT (test code = 1015) 273 K/UL CBC W/AUTO [id number] 00:00:00 Test Item Value Reference Range Interpretation Comments WBC (test code = 1001) 7.8 K/UL RBC (test code = 1002) 4.22 M/UL HEMOGLOBIN (test code = 1003) 12.1 G/DL HEMATOCRIT (test code = 1004) 34.2 % MCV (test code = 1005) 81.0 fL MCH (test code = 1006) 28.7 PG MCHC (test code = 1007) 35.4 G/DL RDW (test code = 1038) 13.5 % NEUTROPHILS (test code = 1008) 68 % LYMPHOCYTES (test code = 1010) 24 % MONOCYTES (test code = 1011) 6 % EOSINOPHILS (test code = 1012) 2 % BASOPHILS (test code = 1013) % PLATELET COUNT (test code = 1015) 273 K/UL CBC W/AUTO [id number] 00:00:00 Test Item Value Reference Range Interpretation Comments WBC (test code = 1001) 7.8 K/UL RBC (test code = 1002) 4.22 M/UL HEMOGLOBIN (test code = 1003) 12.1 G/DL HEMATOCRIT (test code = 1004) 34.2 % MCV (test code = 1005) 81.0 fL MCH (test code = 1006) 28.7 PG MCHC (test code = 1007) 35.4 G/DL RDW (test code = 1038) 13.5 % NEUTROPHILS (test code = 1008) 68 % LYMPHOCYTES (test code = 1010) 24 % MONOCYTES (test code = 1011) 6 % EOSINOPHILS (test code = 1012) 2 % BASOPHILS (test code = 1013) % PLATELET COUNT (test code = 1015) 273 K/UL COMPREHENSIVE METABOLIC [id number] 00:00:00 Test Item Value Reference Range Interpretation Comments GLUCOSE (test code = 2217) 86 MG/DL BUN (test code = 2208) 9 MG/DL CREATININE (test code = 2214) 0.70 MG/DL eGFR AMER. (test code 132 ML/MIN/1.73 = 77932) eGFR NON- AMER. (test 114 ML/MIN/1.73 code = 18422) CALC BUN/CREAT (test code = 13 RATIO 2235) SODIUM (test code = 2231) 140 MEQ/L POTASSIUM (test code = 2228) 3.9 MEQ/L CHLORIDE (test code = 2215) 102 MEQ/L CARBON DIOXIDE (test code = 25 MEQ/L 2206) CALCIUM (test code = 2209) 8.8 MG/DL PROTEIN, TOTAL (test code = 7.0 G/DL 2228) ALBUMIN (test code = 2201) 4.2 G/DL CALC GLOBULIN (test code = 2.8 G/DL 2240) CALC A/G RATIO (test code = 1.5 RATIO 2234) BILIRUBIN, TOTAL (test code = 0.4 MG/DL 220) ALKALINE PHOSPHATASE (test 60 U/L code = 2204) AST (test code = 2218) 11 U/L ALT (test code = 2219) 12 U/L COMPREHENSIVE METABOLIC [id number] 00:00:00 Test Item Value Reference Range Interpretation Comments GLUCOSE (test code = 2217) 86 MG/DL BUN (test code = 2208) 9 MG/DL CREATININE (test code = 2214) 0.70 MG/DL eGFR AMER. (test code 132 ML/MIN/1.73 = 85859) eGFR NON- AMER. (test 114 ML/MIN/1.73 code = 31540) CALC BUN/CREAT (test code = 13 RATIO 2235) SODIUM (test code = 2231) 140 MEQ/L POTASSIUM (test code = 2228) 3.9 MEQ/L CHLORIDE (test code = 2215) 102 MEQ/L CARBON DIOXIDE (test code = 25 MEQ/L 220) CALCIUM (test code = 2209) 8.8 MG/DL PROTEIN, TOTAL (test code = 7.0 G/DL 2228) ALBUMIN (test code = 2201) 4.2 G/DL CALC GLOBULIN (test code = 2.8 G/DL 224) CALC A/G RATIO (test code = 1.5 RATIO 2234) BILIRUBIN, TOTAL (test code = 0.4 MG/DL 2206) ALKALINE PHOSPHATASE (test 60 U/L code = 2204) AST (test code = 2218) 11 U/L ALT (test code = 2219) 12 U/L CBC W/AUTO [id number] 00:00:00 Test Item Value Reference Range Interpretation Comments WBC (test code = 1001) 7.8 K/UL RBC (test code = 1002) 4.22 M/UL HEMOGLOBIN (test code = 1003) 12.1 G/DL HEMATOCRIT (test code = 1004) 34.2 % MCV (test code = 1005) 81.0 fL MCH (test code = 1006) 28.7 PG MCHC (test code = 1007) 35.4 G/DL RDW (test code = 1038) 13.5 % NEUTROPHILS (test code = 1008) 68 % LYMPHOCYTES (test code = 1010) 24 % MONOCYTES (test code = 1011) 6 % EOSINOPHILS (test code = 1012) 2 % BASOPHILS (test code = 1013) % PLATELET COUNT (test code = 1015) 273 K/UL CBC W/AUTO [id number] 00:00:00 Test Item Value Reference Range Interpretation Comments WBC (test code = 1001) 7.8 K/UL RBC (test code = 1002) 4.22 M/UL HEMOGLOBIN (test code = 1003) 12.1 G/DL HEMATOCRIT (test code = 1004) 34.2 % MCV (test code = 1005) 81.0 fL MCH (test code = 1006) 28.7 PG MCHC (test code = 1007) 35.4 G/DL RDW (test code = 1038) 13.5 % NEUTROPHILS (test code = 1008) 68 % LYMPHOCYTES (test code = 1010) 24 % MONOCYTES (test code = 1011) 6 % EOSINOPHILS (test code = 1012) 2 % BASOPHILS (test code = 1013) % PLATELET COUNT (test code = 1015) 273 K/UL CBC W/AUTO [id number] 00:00:00 Test Item Value Reference Range Interpretation Comments WBC (test code = 1001) 7.8 K/UL RBC (test code = 1002) 4.22 M/UL HEMOGLOBIN (test code = 1003) 12.1 G/DL HEMATOCRIT (test code = 1004) 34.2 % MCV (test code = 1005) 81.0 fL MCH (test code = 1006) 28.7 PG MCHC (test code = 1007) 35.4 G/DL RDW (test code = 1038) 13.5 % NEUTROPHILS (test code = 1008) 68 % LYMPHOCYTES (test code = 1010) 24 % MONOCYTES (test code = 1011) 6 % EOSINOPHILS (test code = 1012) 2 % BASOPHILS (test code = 1013) % PLATELET COUNT (test code = 1015) 273 K/UL COMPREHENSIVE METABOLIC [id number] 00:00:00 Test Item Value Reference Range Interpretation Comments GLUCOSE (test code = 2217) 86 MG/DL BUN (test code = 2208) 9 MG/DL CREATININE (test code = 2214) 0.70 MG/DL eGFR AMER. (test code 132 ML/MIN/1.73 = 13089) eGFR NON- AMER. (test 114 ML/MIN/1.73 code = 73919) CALC BUN/CREAT (test code = 13 RATIO 2235) SODIUM (test code = 2231) 140 MEQ/L POTASSIUM (test code = 2228) 3.9 MEQ/L CHLORIDE (test code = 2215) 102 MEQ/L CARBON DIOXIDE (test code = 25 MEQ/L 2205) CALCIUM (test code = 2209) 8.8 MG/DL PROTEIN, TOTAL (test code = 7.0 G/DL 2228) ALBUMIN (test code = 2201) 4.2 G/DL CALC GLOBULIN (test code = 2.8 G/DL 2240) CALC A/G RATIO (test code = 1.5 RATIO 2234) BILIRUBIN, TOTAL (test code = 0.4 MG/DL 2206) ALKALINE PHOSPHATASE (test 60 U/L code = 2204) AST (test code = 2218) 11 U/L ALT (test code = 2219) 12 U/L COMPREHENSIVE METABOLIC [id number] 00:00:00 Test Item Value Reference Range Interpretation Comments GLUCOSE (test code = 2217) 86 MG/DL BUN (test code = 2208) 9 MG/DL CREATININE (test code = 2214) 0.70 MG/DL eGFR AMER. (test code 132 ML/MIN/1.73 = 38215) eGFR NON- AMER. (test 114 ML/MIN/1.73 code = 42865) CALC BUN/CREAT (test code = 13 RATIO 2235) SODIUM (test code = 2231) 140 MEQ/L POTASSIUM (test code = 2228) 3.9 MEQ/L CHLORIDE (test code = 2215) 102 MEQ/L CARBON DIOXIDE (test code = 25 MEQ/L 2205) CALCIUM (test code = 2209) 8.8 MG/DL PROTEIN, TOTAL (test code = 7.0 G/DL 2228) ALBUMIN (test code = 2201) 4.2 G/DL CALC GLOBULIN (test code = 2.8 G/DL 2240) CALC A/G RATIO (test code = 1.5 RATIO 2234) BILIRUBIN, TOTAL (test code = 0.4 MG/DL 7) ALKALINE PHOSPHATASE (test 60 U/L code = 2204) AST (test code = 2218) 11 U/L ALT (test code = 2219) 12 U/L CBC W/AUTO [id number] 00:00:00 Test Item Value Reference Range Interpretation Comments WBC (test code = 1001) 7.8 K/UL RBC (test code = 1002) 4.22 M/UL HEMOGLOBIN (test code = 1003) 12.1 G/DL HEMATOCRIT (test code = 1004) 34.2 % MCV (test code = 1005) 81.0 fL MCH (test code = 1006) 28.7 PG MCHC (test code = 1007) 35.4 G/DL RDW (test code = 1038) 13.5 % NEUTROPHILS (test code = 1008) 68 % LYMPHOCYTES (test code = 1010) 24 % MONOCYTES (test code = 1011) 6 % EOSINOPHILS (test code = 1012) 2 % BASOPHILS (test code = 1013) % PLATELET COUNT (test code = 1015) 273 K/UL CBC W/AUTO [id number] 00:00:00 Test Item Value Reference Range Interpretation Comments WBC (test code = 1001) 7.8 K/UL RBC (test code = 1002) 4.22 M/UL HEMOGLOBIN (test code = 1003) 12.1 G/DL HEMATOCRIT (test code = 1004) 34.2 % MCV (test code = 1005) 81.0 fL MCH (test code = 1006) 28.7 PG MCHC (test code = 1007) 35.4 G/DL RDW (test code = 1038) 13.5 % NEUTROPHILS (test code = 1008) 68 % LYMPHOCYTES (test code = 1010) 24 % MONOCYTES (test code = 1011) 6 % EOSINOPHILS (test code = 1012) 2 % BASOPHILS (test code = 1013) % PLATELET COUNT (test code = 1015) 273 K/UL CBC W/AUTO [id number] 00:00:00 Test Item Value Reference Range Interpretation Comments WBC (test code = 1001) 7.8 K/UL RBC (test code = 1002) 4.22 M/UL HEMOGLOBIN (test code = 1003) 12.1 G/DL HEMATOCRIT (test code = 1004) 34.2 % MCV (test code = 1005) 81.0 fL MCH (test code = 1006) 28.7 PG MCHC (test code = 1007) 35.4 G/DL RDW (test code = 1038) 13.5 % NEUTROPHILS (test code = 1008) 68 % LYMPHOCYTES (test code = 1010) 24 % MONOCYTES (test code = 1011) 6 % EOSINOPHILS (test code = 1012) 2 % BASOPHILS (test code = 1013) % PLATELET COUNT (test code = 1015) 273 K/UL COMPREHENSIVE METABOLIC [id number] 00:00:00 Test Item Value Reference Range Interpretation Comments GLUCOSE (test code = 2217) 86 MG/DL BUN (test code = 2208) 9 MG/DL CREATININE (test code = 2214) 0.70 MG/DL eGFR AMER. (test code 132 ML/MIN/1.73 = 89309) eGFR NON- AMER. (test 114 ML/MIN/1.73 code = 51944) CALC BUN/CREAT (test code = 13 RATIO 2235) SODIUM (test code = 2231) 140 MEQ/L POTASSIUM (test code = 2228) 3.9 MEQ/L CHLORIDE (test code = 2215) 102 MEQ/L CARBON DIOXIDE (test code = 25 MEQ/L 2205) CALCIUM (test code = 2209) 8.8 MG/DL PROTEIN, TOTAL (test code = 7.0 G/DL 2228) ALBUMIN (test code = 2201) 4.2 G/DL CALC GLOBULIN (test code = 2.8 G/DL 224) CALC A/G RATIO (test code = 1.5 RATIO 2234) BILIRUBIN, TOTAL (test code = 0.4 MG/DL 2206) ALKALINE PHOSPHATASE (test 60 U/L code = 2204) AST (test code = 2218) 11 U/L ALT (test code = 2219) 12 U/L COMPREHENSIVE METABOLIC [id number] 00:00:00 Test Item Value Reference Range Interpretation Comments GLUCOSE (test code = 2217) 86 MG/DL BUN (test code = 2208) 9 MG/DL CREATININE (test code = 2214) 0.70 MG/DL eGFR AMER. (test code 132 ML/MIN/1.73 = 96308) eGFR NON- AMER. (test 114 ML/MIN/1.73 code = 99155) CALC BUN/CREAT (test code = 13 RATIO 2235) SODIUM (test code = 2231) 140 MEQ/L POTASSIUM (test code = 2228) 3.9 MEQ/L CHLORIDE (test code = 2215) 102 MEQ/L CARBON DIOXIDE (test code = 25 MEQ/L 220) CALCIUM (test code = 2209) 8.8 MG/DL PROTEIN, TOTAL (test code = 7.0 G/DL 2228) ALBUMIN (test code = 2201) 4.2 G/DL CALC GLOBULIN (test code = 2.8 G/DL 2239) CALC A/G RATIO (test code = 1.5 RATIO 2233) BILIRUBIN, TOTAL (test code = 0.4 MG/DL 2206) ALKALINE PHOSPHATASE (test 60 U/L code = 220) AST (test code = 2218) 11 U/L ALT (test code = 2219) 12 U/L
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
[2022-08-15 18:07] VITALS: TEMP 99; O2SAT 100
[2022-08-15 18:08] VITALS: BP 132/79
== END 2022-08-15 18:03 | disposition home or self-care (01) ==
LOC: ER 16:17
DX: R51.9 Headache, unspecified (principal); F07.81 Postconcussional syndrome
CPT/HCPCS: 70450; 72125; 99283